=== PATIENT | male | born 1960 | race Caucasian/White ===

== ENCOUNTER 2021-01-29 10:43 | Inpatient (IN) ==
--- NOTE | 2021-01-29 11:31 | Emergency Department Note ---
HPI General Chief complaint: Alcohol Stated complaint: alcohol withdrawal, treatment options Time Seen by Provider: 01/29/21 11:19 Source: patient Mode of arrival: ambulatory Limitations: no limitations History of Present Illness HPI Narrative: Narrative: 60 yo M w/ h/o chronic alcoholism, drinking about 1.5L vodka per day, having not been sober for more than one day in the past few decades presents for alcohol Tx options. He arrived to a sober facility this AM looking for help to quit drinking, and his last drink was about one hour ago. Per the sober living staff, he has tried quitting a few times in the past but does not make it more than a day or so due to DTs. He has not had withdrawal seizures in the past. He currently states that he is here "so I don't " and has no other complaints. Related Data Home Medications Medication Instructions Recorded Confirmed No Known Home Meds 01/29/21 01/29/21 Allergies Allergy/AdvReac Type Severity Reaction Status Date / Time No Known Drug Allergies Allergy Verified 01/29/21 10:46 Review of Systems ROS ROS Narrative: Narrative: PFSH Narrative Patient History Narrative: Narrative: Medical/Surgical/Family History All Active Problems (Updated 01/29/21 @ 13:52 by Ismael Ray MD) Alcohol withdrawal delirium (Acute) Leukocytosis (Acute) Alcoholic hepatitis (Acute) Atrial fibrillation with RVR (Acute) Social History Smoking Status: Current every day smoker Exam Narrative Narrative: Narrative: General Limitations: no limitations General appearance: Present alert, appears intoxicated, in no apparent distress and other Head Head: Present atraumatic and normocephalic ENT ENT: Present normal oropharynx and mucous membranes moist Chest Chest: Present normal inspection and symmetric chest wall rise Respiratory Respiratory: Present normal lung sounds bilaterally; Absent respiratory distress, rales/crackles and wheezes Cardiovascular Cardiovascular: Present regular rate, normal rhythm, +S1, +S2 and other (2+ B/L radial pulses); Absent systolic murmur and diastolic murmur Adbominal Abdominal: Present soft and normal bowel sounds; Absent distention and tenderness Extremities Extremities: Absent pedal edema Neurological Neurological: Present alert and oriented X3 Psychiatric Psychiatric: Present normal affect Skin Skin: Present warm (WNL) and dry Course Vital Signs Vital signs: Vital Signs Temperature 97.3 F 01/29/21 10:44 Pulse Rate 150 H 01/29/21 10:44 Respiratory Rate 20 01/29/21 10:44 Blood Pressure 138/113 01/29/21 10:44 Pulse Oximetry (%) 99 01/29/21 10:44 Temperature 97.3 F 01/29/21 10:44 Pulse Rate 124 H 01/29/21 16:05 Respiratory Rate 28 H 01/29/21 16:05 Blood Pressure 110/86 01/29/21 16:05 Pulse Oximetry (%) 96 01/29/21 16:05 MDM MDM Narrative Medical decision making narrative: Narrative: 60 yo M w/ h/o chronic alcoholism presents for assistance w/ coming off of ETOH. DDx - Alcohol withdrawals, alcoholic hepatitis, arrhythmia, polysubstance abuse Pt presented w/ tachycardia to the 140s. His exam was o/w remarkable for obvious intoxication. I felt that he was at high risk for alcohol withdrawal seizures d/t his extensive drinking Hx. I was also concerned for holiday heart given his tachycardia and ETOH Hx. I checked an EKG which did show a fib, although there was no previous available for comparison. Within a few hours of arrival, pt began to develop agitation and olfactory hallucinations, which we Tx'd w/ 2mg IV ativan. Pts labs returned, showing a markedly elevated WBC of 47.1. There was no previous for comparison. His ETOH was also notable at 0.433. LFTs showed the expected elevation in AST and ALT, w/ AST much more elevated. Clinically I felt that his leukocytosis was not likely 2/2 an infectious process and did not start abx. I did start IVF out of concern for sludging effect from the leukocytosis. I d/w Dr Concepcion who graciously accepted the pt for admission, and he requested a CXR, procalcitonin, lactate and blood cultures. I have ordered these and he will follow and work on admission. EKG: A fib w/ rate of 140, no VA interval, normals QRS and QT interval, QTc 562. No STEMI, no significant TWI or ST depression, no previous for comparison. This EKG was ordered and interpreted by me. Lab Data Lab results reviewed: Yes I reviewed the patient's lab results. Result diagrams: 01/29/21 11:27 01/29/21 11:27 Labs: Lab Results 1101/29/21 01/29/21 Range/Units 11:09 11:27 11:27 WBC 47.1 H* (4.5-11.0) K/mcL RBC 4.50 L (4.63-6.08) M/mcL Hgb 15.1 (13.7-17.5) g/dL Hct 45.6 (40.1-51.0) % MCV 101.3 H (80.0-100.0) fL MCH 33.6 (26.0-34.0) pg MCHC 33.1 (31.0-36.0) g/dL RDW 13.4 (11.5-14.5) % Plt Count 97 L (140-440) K/mcL MPV 11.0 H (7.4-10.4) fL Neut % (Auto) 9.3 L (38.0-78.0) % Lymph % (Auto) 87.8 H (15.5-49.0) % Ada % (Auto) 2.5 (1.0-12.0) % Eos % (Auto) 0.3 (0.0-7.0) % Baso % (Auto) 0.1 (0.0-2.0) % Lymph # (Auto) 41.33 H (1.50-4.80) K/mcL Ada # (Auto) 1.19 H (0.10-0.90) K/mcL Eos # (Auto) 0.12 (0.00-0.70) K/mcL Baso # (Auto) 0.07 (0.00-0.30) K/mcL Absolute Neutrophils 4.37 (1.80-8.00) K/mcL VBG Lactic Acid (0.5-2.0) mmol/L Sodium 137 (133-145) mmol/L Potassium 3.7 (3.3-5.1) mmol/L Chloride 98 (96-108) mmol/L Carbon Dioxide 19 L (22-30) mmol/L Anion Gap 20.0 H (8.0-16.0) BUN 6 (6-20) mg/dL Creatinine 1.0 (0.7-1.2) mg/dL GFR Calculation 82 Glucose 132 H (70-105) mg/dL Calcium 8.4 L (8.6-10.4) mg/dL Total Bilirubin 1.0 (0.1-1.0) mg/dL AST 238 H (<40) U/L ALT 104 H (<40) U/L Alkaline Phosphatase 99 (39-117) U/L Total Creatine Kinase 82 (24-195) U/L CK-MB (CK-2) 3.0 (<6.7) ng/mL Troponin T (<0.03) ng/mL Total Protein 6.5 (5.9-8.4) gm/dL Albumin 4.2 (3.2-5.2) gm/dL Globulin 2.3 (2.2-3.7) gm/dL Albumin/Globulin Ratio 1.8 (1.0-2.3) Procalcitonin (<0.10) ng/mL Salicylates mg/dL Acetaminophen ug/mL Ethyl Alcohol 0.433 H (<0.010) gm/dL 01/29/21 01/29/21 01/29/21 Range/Units 11:27 11:27 14:14 WBC (4.5-11.0) K/mcL RBC (4.63-6.08) M/mcL Hgb (13.7-17.5) g/dL Hct (40.1-51.0) % MCV (80.0-100.0) fL MCH (26.0-34.0) pg MCHC (31.0-36.0) g/dL RDW (11.5-14.5) % Plt Count (140-440) K/mcL MPV (7.4-10.4) fL Neut % (Auto) (38.0-78.0) % Lymph % (Auto) (15.5-49.0) % Ada % (Auto) (1.0-12.0) % Eos % (Auto) (0.0-7.0) % Baso % (Auto) (0.0-2.0) % Lymph # (Auto) (1.50-4.80) K/mcL Ada # (Auto) (0.10-0.90) K/mcL Eos # (Auto) (0.00-0.70) K/mcL Baso # (Auto) (0.00-0.30) K/mcL Absolute Neutrophils (1.80-8.00) K/mcL VBG Lactic Acid 1.9 (0.5-2.0) mmol/L Sodium (133-145) mmol/L Potassium (3.3-5.1) mmol/L Chloride (96-108) mmol/L Carbon Dioxide (22-30) mmol/L Anion Gap (8.0-16.0) BUN (6-20) mg/dL Creatinine (0.7-1.2) mg/dL GFR Calculation Glucose (70-105) mg/dL Calcium (8.6-10.4) mg/dL Total Bilirubin (0.1-1.0) mg/dL AST (<40) U/L ALT (<40) U/L Alkaline Phosphatase (39-117) U/L Total Creatine Kinase (24-195) U/L CK-MB (CK-2) (<6.7) ng/mL Troponin T < 0.01 (<0.03) ng/mL Total Protein (5.9-8.4) gm/dL Albumin (3.2-5.2) gm/dL Globulin (2.2-3.7) gm/dL Albumin/Globulin Ratio (1.0-2.3) Procalcitonin (<0.10) ng/mL Salicylates < 0.3 mg/dL Acetaminophen < 5.0 ug/mL Ethyl Alcohol (<0.010) gm/dL 01/29/21 Range/Units 14:14 WBC (4.5-11.0) K/mcL RBC (4.63-6.08) M/mcL Hgb (13.7-17.5) g/dL Hct (40.1-51.0) % MCV (80.0-100.0) fL MCH (26.0-34.0) pg MCHC (31.0-36.0) g/dL RDW (11.5-14.5) % Plt Count (140-440) K/mcL MPV (7.4-10.4) fL Neut % (Auto) (38.0-78.0) % Lymph % (Auto) (15.5-49.0) % Ada % (Auto) (1.0-12.0) % Eos % (Auto) (0.0-7.0) % Baso % (Auto) (0.0-2.0) % Lymph # (Auto) (1.50-4.80) K/mcL Ada # (Auto) (0.10-0.90) K/mcL Eos # (Auto) (0.00-0.70) K/mcL Baso # (Auto) (0.00-0.30) K/mcL Absolute Neutrophils (1.80-8.00) K/mcL VBG Lactic Acid (0.5-2.0) mmol/L Sodium (133-145) mmol/L Potassium (3.3-5.1) mmol/L Chloride (96-108) mmol/L Carbon Dioxide (22-30) mmol/L Anion Gap (8.0-16.0) BUN (6-20) mg/dL Creatinine (0.7-1.2) mg/dL GFR Calculation Glucose (70-105) mg/dL Calcium (8.6-10.4) mg/dL Total Bilirubin (0.1-1.0) mg/dL AST (<40) U/L ALT (<40) U/L Alkaline Phosphatase (39-117) U/L Total Creatine Kinase (24-195) U/L CK-MB (CK-2) (<6.7) ng/mL Troponin T (<0.03) ng/mL Total Protein (5.9-8.4) gm/dL Albumin (3.2-5.2) gm/dL Globulin (2.2-3.7) gm/dL Albumin/Globulin Ratio (1.0-2.3) Procalcitonin 0.06 (<0.10) ng/mL Salicylates mg/dL Acetaminophen ug/mL Ethyl Alcohol (<0.010) gm/dL CC TIME Critical Care Time Total Critical Care Time: 35 Attestation: The very real possibility of disability or existed without emergent intervention. Organ systems at risk included ORDER BOOKER, CVS, hematologic. Interventions included ativan, IVF. No procedures were required. Discharge Plan Patient/Caregiver Discharge Instructions Pt seen by CORPORATE DRIVER/PA only: No Clinical Impression: Alcohol withdrawal delirium, Leukocytosis, Alcoholic hepatitis, Atrial fibrillation with RVR Patient Disposition: Xfer As Inpt ([facility]) Condition: Serious Discharge Date/Time: 01/29/21 15:02
[2021-01-29] MEDS ORDERED: LORazepam 2 MG/ML VIAL IV ONE (12:42)
[2021-01-29 12:53] LABS: Alcohol,Blood 0.433 gm/dL (<0.010)
[2021-01-29 13:00] LABS: Basophils # (Auto) 0.07 K/mcL (0.00-0.30); Basophils % (Auto) 0.1 % (0.0-2.0); Eosinophils # (Auto) 0.12 K/mcL (0.00-0.70); Eosinophils % (Auto) 0.3 % (0.0-7.0); Hematocrit 45.6 % (40.1-51.0); Hemoglobin 15.1 g/dL (13.7-17.5); Lymphocytes # (Auto) 41.33 K/mcL (1.50-4.80); Lymphocytes % (Auto) 87.8 % (15.5-49.0); Mean Cell Volume 101.3 fL (80.0-100.0); Mean Corpuscular HGB Conc 33.1 g/dL (31.0-36.0); Monocytes # (Auto) 1.19 K/mcL (0.10-0.90); Monocytes % (Auto) 2.5 % (1.0-12.0); Neutrophils % (Auto) 9.3 % (38.0-78.0); Platelet Count 97 K/mcL (140-440); Red Cell Distribution Width 13.4 % (11.5-14.5)
[2021-01-29 13:01] LABS: ALT/SGPT 104 U/L (<40); AST/SGOT 238 U/L (<40); Albumin 4.2 gm/dL (3.2-5.2); Albumin/Globulin Ratio 1.8 (1.0-2.3); Alkaline Phosphatase 99 U/L (39-117); Blood Urea Nitrogen 6 mg/dL (6-20); Calcium 8.4 mg/dL (8.6-10.4); Carbon Dioxide 19 mmol/L (22-30); Chloride 98 mmol/L (96-108); Creatine Kinase 82 U/L (24-195); Globulin 2.3 gm/dL (2.2-3.7); Glomerular Filtration Rate 82; Glucose 132 mg/dL (70-105)
[2021-01-29 13:04] LABS: WBC 47.1 K/mcL (4.5-11.0)
[2021-01-29 13:09] LABS: Acetaminophen < 5.0 ug/mL; Salicylate < 0.3 mg/dL
[2021-01-29] MEDS ORDERED: 0.9 % SODIUM CHLORIDE 1,000 ML IV ONE (13:12)
--- NOTE | 2021-01-29 14:11 | XRay Report ---
INDICATION: tachycardia TECHNIQUE: AP portable upright chest x-ray COMPARISON: None FINDINGS: Lungs:Lungs are negative. No focal pulmonary parenchymal infiltrate or mass Heart, vascular:No significant cardiomegaly. Pulmonary vascularity is normal. No pulmonary edema or pulmonary congestion Mediastinum, yoly:No mediastinal widening. No hilar mass Pleura:No pleural fluid. No pleural-based mass or calcification Skeletal:Negative. IMPRESSION: Negative AP chest x-ray Interpreted and Authenticated by: Manuel Ortiz 01/29/21
--- NOTE | 2021-01-29 14:13 | Internal Med History&Physical ---
HPI History of Present Illness Patient information: Note initiated : 01/29/21 at 2:08 pm Service Date, if different from initiated Date: [] Patient: Abram Chinchilla a 60 y/o M admitted on for alcohol withdrawal, treatment options. Chief Complaint: [Delirium tremens] History of present illness: Mr. Chinchilla is a 60 year old M chronic alcoholism for decades, referred by outside clinic for alcohol withdrawal assistance. Patient has been drinking 1 to 1.5 L of vodka per per day with last drink 1 hour prior to arriving our ED. Not much medical history could otherwise be obtained due to clinical circumstances. Labs significant for leukocytosis with WBC 47.1, with lymphocyte predominance. Serum alcohol level 0.433. Urine drug screen pending. Review of Systems ROS unobtainable: due to mental status PFSH PFSH All Active Problems (Updated 01/29/21 @ 13:52 by Ismael Ray MD) Alcohol withdrawal delirium (Acute) Leukocytosis (Acute) Alcoholic hepatitis (Acute) Atrial fibrillation with RVR (Acute) MEDS/ALLERGIES Home Medications and Allergies Home Medications Medication Instructions Recorded Confirmed Type No Known Home Meds 01/29/21 01/29/21 History Allergies Allergy/AdvReac Type Severity Reaction Status Date / Time No Known Drug Allergies Allergy Verified 01/29/21 10:46 EXAM Constitutional Vitals: Temp Pulse Resp BP Pulse Ox 36.3 C 77 25 H 131/109 94 01/29/21 10:44 01/29/21 13:49 01/29/21 13:49 01/29/21 12:33 01/29/21 13:49 General appearance: no acute distress Exam: Lethargic Head Head exam: Present atraumatic and normocephalic Eye Eye exam: Present EOMI and PERRL ENT ENT exam: Present mucous membranes moist, normal exam and normal external ear exam Neck Neck exam: Present normal inspection; Absent lymphadenopathy, tenderness and thyromegaly Respiratory Respiratory exam: Absent accessory muscle use, respiratory distress and wheezes Cardiovascular Cardiovascular exam: Present irregular rhythm and tachycardia; Absent JVD GI/Abdominal GI/Abdominal exam: Present normal bowel sounds and soft; Absent organomegaly and tenderness Rectal Rectal exam: Present deferred Extremities Exam Extremities exam: Present full ROM, normal capillary refill and normal inspection; Absent tenderness Neurological Exam Neurological exam: Present alert, CN II-XII intact and oriented X3; Absent motor sensory deficit Psychiatric Psychiatric exam: Present normal affect and normal mood; Absent anxious and depr essed Skin Skin exam: Present dry and intact DATA Data Completed and Pending Labs: Labs from last 24 hours 01/29/21 01/29/21 01/29/21 11:27 11:27 11:27 WBC RBC Hgb Hct MCV MCH MCHC RDW Plt Count MPV Neut % (Auto) Lymph % (Auto) Rooks % (Auto) Eos % (Auto) Baso % (Auto) Lymph # (Auto) Rooks # (Auto) Eos # (Auto) Baso # (Auto) Absolute Neutrophils Sodium Potassium Chloride Carbon Dioxide Anion Gap BUN Creatinine GFR Calculation Glucose Calcium Total Bilirubin AST ALT Alkaline Phosphatase Total Creatine Kinase CK-MB (CK-2) Troponin T < 0.01 Total Protein Albumin Globulin Albumin/Globulin Ratio Salicylates < 0.3 Urine Opiates Screen Pending Ur Opiates Confirm Pending Ur Oxycodone Screen Pending Urine Methadone Screen Pending Ur Methadone Confirm Pending Acetaminophen < 5.0 Ur Barbiturates Screen Pending Ur Barbiturate Confirm Pending Ur Phencyclidine Scrn Pending Urine PCP Confirm Pending Ur Amphetamines Screen Pending U Amphetamines Confirm Pending U Benzodiazepines Scrn Pending U Benzodiazepine Confm Pending Urine Cocaine Screen Pending Urine Cocaine Confirm Pending U Cannabinoids Confirm Pending U Marijuana (THC) Screen Pending Ethyl Alcohol 01/29/21 01/29/21 01/29/21 11:27 11:27 11:09 WBC 47.1 H* RBC 4.50 L Hgb 15.1 Hct 45.6 MCV 101.3 H MCH 33.6 MCHC 33.1 RDW 13.4 Plt Count 97 L MPV 11.0 H Neut % (Auto) 9.3 L Lymph % (Auto) 87.8 H Rooks % (Auto) 2.5 Eos % (Auto) 0.3 Baso % (Auto) 0.1 Lymph # (Auto) 41.33 H Rooks # (Auto) 1.19 H Eos # (Auto) 0.12 Baso # (Auto) 0.07 Absolute Neutrophils 4.37 Sodium 137 Potassium 3.7 Chloride 98 Carbon Dioxide 19 L Anion Gap 20.0 H BUN 6 Creatinine 1.0 GFR Calculation 82 Glucose 132 H Calcium 8.4 L Total Bilirubin 1.0 AST 238 H ALT 104 H Alkaline Phosphatase 99 Total Creatine Kinase 82 CK-MB (CK-2) 3.0 Troponin T Total Protein 6.5 Albumin 4.2 Globulin 2.3 Albumin/Globulin Ratio 1.8 Salicylates Urine Opiates Screen Ur Opiates Confirm Ur Oxycodone Screen Urine Methadone Screen Ur Methadone Confirm Acetaminophen Ur Barbiturates Screen Ur Barbiturate Confirm Ur Phencyclidine Scrn Urine PCP Confirm Ur Amphetamines Screen U Amphetamines Confirm U Benzodiazepines Scrn U Benzodiazepine Confm Urine Cocaine Screen Urine Cocaine Confirm U Cannabinoids Confirm U Marijuana (THC) Screen Ethyl Alcohol 0.433 H A/P Assessment and plan (1) Alcohol withdrawal delirium: Status: Acute (2) Leukocytosis: Status: Acute (3) Alcoholic hepatitis: Status: Acute (4) Atrial fibrillation with RVR: Status: Acute Narrative A/P Narrative: Assessment and Plans: 1. Delirium Tremens: Admit to inpatient PCU with telemetry Seizure precautions Fall precautions Aspiration precautions Banana bag CIWA protocol with Ativan PO/IV PRN alcohol withdrawal symptoms field services manager for eventual placement pending Addiction Therapist patient on quitting alcohol 2. Atrial fibrillation: Unknown chronicity [id number] score of 0, no indication for anticoagulation therapy at this point Metoprolol tartrate 25mg PO BID Lopressor IV PRN HR>120 bpm 3. Alcoholic hepatitis: Daily CMP to trend LFTs Limited abdominal US to look for cirrhosis Addiction Therapist patient on quitting alcohol 4. Lymphocytosis: Peripheral smear cbc w/ auto diff in the morning to trend WBC and lymphocyte count GI ppx: Protonix DVT ppx: Lovenox Code status: Full Prognosis: guarded Disposition: inpatient PCU telemetry Time Spent With Patient Time: Total time spent is greater than 50% in coordination of care (as documented) at patient's floor/unit and/or counseling patient: Total time spent with greater than 50% in coordination of care (as documented) at patient's floor/unit and/or counseling patient:: Greater than 35 minutes
[2021-01-29] MEDS ORDERED: LORazepam 1 MG TABLET PO PRN (15:02)
[2021-01-29] MEDS ORDERED: ONDANSETRON 4 MG/2 ML VIAL IV PRN (15:02)
[2021-01-29] MEDS ORDERED: 0.9 % SODIUM CHLORIDE 10 ML SYRINGE IV SCH (15:02)
[2021-01-29] MEDS ORDERED: SENNOSIDES 1 TABLET PO PRN (15:02)
[2021-01-29] MEDS ORDERED: LACTULOSE 20 GM/30 ML ORAL.SOL PO PRN (15:02)
[2021-01-29] MEDS ORDERED: LORazepam 2 MG/ML VIAL IV PRN (15:02)
[2021-01-29] MEDS ORDERED: IPRATROPIUM/ALBUTEROL 3 ML AMPUL.NEB NEB PRN (15:02)
[2021-01-29] MEDS ORDERED: hydrOXYzine 25 MG TABLET PO PRN (15:02)
[2021-01-29] MEDS ORDERED: ACETAMINOPHEN 325 MG TABLET PO PRN (15:02)
[2021-01-29] MEDS: [UNRECOGNIZED DRUG - OTHER] IV SCH (15:34)
[2021-01-29] MEDS: MAGNESIUM SULFATE IV SCH (15:34)
[2021-01-29] MEDS: THIAMINE IV SCH (15:34)
[2021-01-29] MEDS: POTASSIUM CHLORIDE IV SCH (15:34)
[2021-01-29] MEDS: METOPROLOL TARTRATE 5 MG/5 ML VIAL IV PRN (17:00)
[2021-01-29] MEDS: MULTIVIT,THER IRON,CA,FA & MIN 1 TABLET PO SCH (20:18)
[2021-01-29] MEDS: LORazepam 2 MG/ML VIAL IV PRN (20:19)
[2021-01-29] MEDS: METOPROLOL TARTRATE 25 MG TABLET PO SCH (20:19)
[2021-01-29] MEDS: DOCUSATE SODIUM 100 MG CAPSULE PO SCH (20:34)
[2021-01-29] MEDS ORDERED: METOPROLOL TARTRATE 25 MG TABLET PO SCH (21:00)
[2021-01-30] MEDS: LORazepam 2 MG/ML VIAL IV PRN ×6 (00:02→19:13)
[2021-01-30] MEDS: 0.9 % SODIUM CHLORIDE 10 ML SYRINGE IV SCH ×4 (01:00→21:30)
[2021-01-30] MEDS: METOPROLOL TARTRATE 5 MG/5 ML VIAL IV PRN ×2 (01:19→05:54)
[2021-01-30] MEDS ORDERED: MAGNESIUM SULFATE 8.12 MEQ/2 ML VIAL ONE (01:29)
[2021-01-30] MEDS ORDERED: THIAMINE 100 MG/ML VIAL ONE (01:29)
[2021-01-30] MEDS ORDERED: POTASSIUM CHLORIDE 20 MEQ/10 ML VIAL IV ONE (01:29)
[2021-01-30 02:56] LABS: Appearance,Urine CLEAR (Clear); Bilirubin,Urine Negative (Negative); Color,Urine YELLOW; Culture Indicated,Urine No; Glucose,Urine (UA) Negative (Negative); Ketones,Urine Negative (Negative); Leukocyte Esterase,Urine Negative /uL (Negative); Nitrate,Urine Negative (Negative); Protein,Urine Negative (Negative); Specific Gravity,Urine 1.005 (1.000-1.035); Urine Blood Negative (Negative); Urobilinogen,Urine Negative
[2021-01-30 03:06] LABS: Amphetamine Screen,Urine None detected; Barbiturate Screen,Urine None detected; Benzodiazepines Screen,Urine None detected; Cannabinoid Screen,Urine None detected; Cocaine Screen,Urine None detected; Opiate Screen,Urine None detected; Oxycodone, Urine Screen None detected; Phencyclidine Screen,Urine None detected
--- NOTE | 2021-01-30 06:12 | Ultrasound Report ---
INDICATION: look for cirrhosis TECHNIQUE: Grayscale and color flow Doppler spectral imaging COMPARISON: None. FINDINGS: Gallbladder:Negative. No cholelithiasis. No gallbladder wall thickening or pericholecystic fluid Common bile duct:No intra or extrahepatic bile duct dilatation.. Common bile duct measures4 mm Liver:Heterogeneous parenchyma. Liver is echogenic and attenuates sound relative to the right kidney. Liver contour is smooth. There is no discrete mass. No evidence for hepatocellular carcinoma. There is no ascites. Liver [id number] cm Portal vein:Normal hepatopedal portal venous flow Pancreas:Mildly echogenic. No detectable mass IMPRESSION: 1. Negative gallbladder 2. Somewhat echogenic and heterogeneous liver. No discrete mass. Liver contour is smooth Interpreted and Authenticated by: Manuel Ortiz 01/30/21
[2021-01-30 07:10] LABS: INR 1.1 (0.9-1.1); Prothrombin Time 14.7 sec (11.9-14.5)
[2021-01-30 07:15] LABS: Phosphorous 3.7 mg/dL (2.5-4.5)
[2021-01-30 07:18] LABS: ALT/SGPT 118 U/L (<40); AST/SGOT 268 U/L (<40); Albumin 3.8 gm/dL (3.2-5.2); Albumin/Globulin Ratio 1.8 (1.0-2.3); Alkaline Phosphatase 95 U/L (39-117); Bilirubin,Total 1.4 mg/dL (0.1-1.0); Blood Urea Nitrogen 6 mg/dL (6-20); Calcium 8.3 mg/dL (8.6-10.4); Carbon Dioxide 22 mmol/L (22-30); Chloride 106 mmol/L (96-108); Globulin 2.1 gm/dL (2.2-3.7); Glomerular Filtration Rate 98; Glucose 101 mg/dL (70-105)
[2021-01-30] MEDS: METOPROLOL TARTRATE 25 MG TABLET PO SCH (08:05)
[2021-01-30] MEDS: MULTIVIT,THER IRON,CA,FA & MIN 1 TABLET PO SCH (08:05)
[2021-01-30] MEDS: PANTOPRAZOLE 40 MG TABLET PO SCH (08:05)
[2021-01-30] MEDS: DOCUSATE SODIUM 100 MG CAPSULE PO SCH ×2 (08:05→21:30)
[2021-01-30 08:07] LABS: Basophils # (Auto) 0.14 K/mcL (0.00-0.30); Basophils % (Auto) 0.4 % (0.0-2.0); Eosinophils # (Auto) 0.17 K/mcL (0.00-0.70); Eosinophils % (Auto) 0.5 % (0.0-7.0); Hematocrit 44.6 % (40.1-51.0); Hemoglobin 15.1 g/dL (13.7-17.5); Lymphocytes # (Auto) 25.81 K/mcL (1.50-4.80); Mean Cell Volume 103.2 fL (80.0-100.0); Mean Corpuscular HGB Conc 33.9 g/dL (31.0-36.0); Mean Platelet Volume 11.4 fL (7.4-10.4); Monocytes # (Auto) 0.64 K/mcL (0.10-0.90); Monocytes % (Auto) 2.1 % (1.0-12.0); Neutrophils % (Auto) 14.2 % (38.0-78.0); Platelet Count 80 K/mcL (140-440); RBC 4.32 M/mcL (4.63-6.08); Red Cell Distribution Width 13.2 % (11.5-14.5); WBC 31.2 K/mcL (4.5-11.0)
[2021-01-30] MEDS ORDERED: ENOXAPARIN 40 MG/0.4 ML SYRINGE SQ SCH (09:00)
[2021-01-30 09:03] LABS: Lymphocytes % (Auto) 82.8 % (15.5-49.0)
[2021-01-30] MEDS ORDERED: METOPROLOL TARTRATE 25 MG TABLET PO ONE (09:12)
--- NOTE | 2021-01-30 09:21 | Internal Med Progress Note ---
SUBJECTIVE Subjective Patient information: Note initiated : 01/30/21 at 9:14 am Service Date, if different from initiated Date: [] Patient: Abram Chinchilla a 60 y/o M admitted on 01/29/21 for alcohol withdrawal, treatment options. Chief Complaint: [delirium tremens] Interval history: History of present illness: Mr. Chinchilla is a 60 year old M chronic alcoholism for decades, referred by outside clinic for alcohol withdrawal assistance. Patient has been drinking 1 to 1.5 L of vodka per per day with last drink 1 hour prior to arriving our ED. Not much medical history could otherwise be obtained due to clinical circumstances. Labs significant for leukocytosis with WBC 47.1, with lymphocyte predominance. Serum alcohol level 0.433. Urine drug screen pending. 01/30: CIWA score 10-12 overnight, 10 this morning. Constitutional Vitals: Vital Signs Temp Pulse Resp BP Pulse Ox 37.1 C 120 H 22 157/117 96 01/30/21 04:01 01/30/21 07:02 01/30/21 07:02 01/30/21 07:02 01/30/21 07:02 Period Temp Pulse Resp BP Sys/Johnson Pulse Ox Last 24 Hr 35.9 C-37.1 C 28-150 14-29 100-157/74-128 88-99 Intake and Output 01/29/21 01/30/21 01/30/21 21:59 05:59 13:59 Intake Total 1000 1375 Output Total 1 600 Balance 999 -600 1375 Weight 96.785 kg Intake & Output: Intake & Output 01/29/21 01/30/21 01/30/21 21:59 05:59 13:59 Intake Total 1000 1375 Output Total 1 600 Balance 999 -600 1375 Weight 96.785 kg Intake: IV 1000 1015 Sodium Chloride 0.9% 1,000 ml @ 1000 Wide Open IV BOLUS ONE Rx#: [id number] Potassium Chloride 20 Meq 1015 Magnesium Sulfate 16.24 Meq Vitamin B1 100 mg In Sodium Chloride 0.9% 1,000 ml @ 100 mls/hr IV Q24H ERIKA Rx#: [id number] Oral 360 Output: Void Amount 600 # of times incontinent of urine 1 Other: Urine Appearance Clear Urine Color Dark Yellow Urine Odor Normal General appearance: cooperative, disheveled and no acute distress Head Head exam: Present atraumatic and normocephalic Eye Eye exam: Present EOMI and PERRL ENT ENT exam: Present mucous membranes moist, normal exam and normal external ear exam Neck Neck exam: Present normal inspection; Absent lymphadenopathy, tenderness and thyromegaly Respiratory Respiratory exam: Absent accessory muscle use, respiratory distress and wheezes Cardiovascular Cardiovascular exam: Present irregular rhythm and tachycardia; Absent JVD GI/Abdominal GI/Abdominal exam: Present normal bowel sounds and soft; Absent organomegaly and tenderness Rectal Rectal exam: Present deferred Extremities Exam Extremities exam: Present full ROM, normal capillary refill and normal inspection; Absent tenderness Neurological Exam Neurological exam: Present alert and CN II-XII intact; Absent motor sensory deficit and oriented X3 Additional comments: oriented X2 to person and place only Psychiatric Psychiatric exam: Present normal affect and normal mood; Absent anxious and depressed Skin Skin exam: Present dry and intact OBJ DATA Labs CBC & Chem 7: 01/30/21 05:12 01/30/21 05:12 Labs: Abnormal Lab Results 01/30/21 01/30/21 01/30/21 05:12 05:12 05:00 WBC 31.2 H* RBC 4.32 L MCV 103.2 H MCH 35.0 H Plt Count 80 L MPV 11.4 H Neut % (Auto) 14.2 L Lymph % (Auto) 82.8 H Lymph # (Auto) 25.81 H Cedar # (Auto) PT 14.7 H Carbon Dioxide Anion Gap Glucose Calcium 8.3 L Total Bilirubin 1.4 H AST 268 H ALT 118 H Globulin 2.1 L Ethyl Alcohol 01/29/21 01/29/21 01/29/21 11:27 11:27 11:09 WBC 47.1 H* RBC 4.50 L MCV 101.3 H MCH Plt Count 97 L MPV 11.0 H Neut % (Auto) 9.3 L Lymph % (Auto) 87.8 H Lymph # (Auto) 41.33 H Cedar # (Auto) 1.19 H PT Carbon Dioxide 19 L Anion Gap 20.0 H Glucose 132 H Calcium 8.4 L Total Bilirubin AST 238 H ALT 104 H Globulin Ethyl Alcohol 0.433 H Meds: Medications Acetaminophen (Acetaminophen 325 Mg Tablet) 650 mg PO Q6HP PRN; Protocol PRN Reason: Per Pain Protocol/Fever > 101 Albuterol/Ipratropium (Ipratropium/Albuterol 3 Ml Ampul.Neb) 3 ml NEB Q4HRT PRN PRN Reason: Wheezing Docusate Sodium (Docusate Sodium 100 Mg Capsule) 100 mg PO BID [facility] Last Admin: 01/30/21 08:05 Dose: Not Given Documented by: Enoxaparin Sodium (Enoxaparin 40 Mg/0.4 Ml Syringe) 40 mg SQ DAILY [facility] Last Admin: 01/30/21 08:05 Dose: 40 mg Documented by: Hydroxyzine HCl (Hydroxyzine 25 Mg Tablet) 0 mg PO Q4HP PRN PRN Reason: Anxiety/Agitation Potassium Chloride 20 meq/Magnesium Sulfate 16.24 meq/Thiamine HCl 100 mg/ Sodium Chloride 1,015 mls @ 100 mls/hr IV Q24H [facility] Stop: 02/01/21 02:08 Last Infusion: 01/30/21 07:49 Dose: Infused Documented by: Iron Carb/Multivit/Truck Farmer/Folic Acid (Multivit,Ther Iron,Ca,Fa & Min 1 Tablet) 1 tab PO DAILY [facility] Last Admin: 01/30/21 08:05 Dose: 1 tab Documented by: Lactulose (Lactulose 20 Gm/30 Ml Oral.Graciela) 10 gm PO DAILYP PRN PRN Reason: Constipation Lorazepam (Lorazepam 1 Mg Tablet) 2 mg PO Q2HP PRN PRN Reason: CIWA-A >6 or HR >100 Last Admin: 01/29/21 15:33 Dose: 2 mg Documented by: Lorazepam (Lorazepam 2 Mg/Ml Vial) 0 mg IV Q1HP PRN; Protocol PRN Reason: Alcohol Withdrawal Last Admin: 01/30/21 08:31 Dose: 1 mg Documented by: Metoprolol Tartrate (Metoprolol Tartrate 25 Mg Tablet) 50 mg PO BID [facility] Ondansetron HCl (Ondansetron 4 Mg/2 Ml Vial) 4 mg IV Q4HP PRN; Protocol PRN Reason: Nausea And Vomiting Last Admin: 01/30/21 00:01 Dose: 4 mg Documented by: Pantoprazole Sodium (Pantoprazole 40 Mg Tablet) 40 mg PO QAMAC [facility] Last Admin: 01/30/21 08:05 Dose: 40 mg Documented by: Senna (Sennosides 1 Tablet) 2 tab PO HSP PRN PRN Reason: Constipation Sodium Chloride (0.9 % Sodium Chloride 10 Ml Syringe) 10 ml IV Q8 [facility] Last Admin: 01/30/21 05:54 Dose: 10 ml Documented by: A/P Assessment and plan (1) Alcohol withdrawal delirium: Status: Acute (2) Leukocytosis: Status: Acute (3) Alcoholic hepatitis: Status: Acute (4) Atrial fibrillation with RVR: Status: Acute Narrative A/P Narrative: Assessment and Plans: 1. Delirium Tremens: Stays in inpatient PCU with telemetry Seizure precautions Fall precautions Aspiration precautions Banana bag CIWA protocol with Ativan PO/IV PRN alcohol withdrawal symptoms administrative services director for eventual placement pending Licensed Nurse Practitioner patient on quitting alcohol 2. Atrial fibrillation: Unknown chronicity [id number] score of 0, no indication for anticoagulation therapy at this point Metoprolol tartrate 25mg-->50mg PO BID for better rate control Lopressor IV PRN HR>120 bpm 2D echocardiogram, results pending 3. Alcoholic hepatitis: Daily CMP to trend LFTs Limited abdominal US to look for cirrhosis--> no signs of cirrhosis or liver lesion Licensed Nurse Practitioner patient on quitting alcohol 4. Lymphocytosis: Peripheral smear-->marked lymphocytosis, mature and small. Worrisome for CLL/SLL. Will consider hematology referral cbc w/ auto diff in the morning to trend WBC and lymphocyte count-->WBC count and lymphocyte % falling GI ppx: Protonix DVT ppx: Lovenox Code status: Full Prognosis: guarded Disposition: inpatient PCU telemetry Time Spent With Patient Time: Total time spent is greater than 50% in coordination of care (as documented) at patient's floor/unit and/or counseling patient:
[2021-01-30] MEDS: POTASSIUM CHLORIDE IV SCH (16:19)
[2021-01-30] MEDS: MAGNESIUM SULFATE IV SCH (16:19)
[2021-01-30] MEDS: [UNRECOGNIZED DRUG - OTHER] IV SCH (16:19)
[2021-01-30] MEDS: THIAMINE IV SCH (16:19)
[2021-01-30] MEDS ORDERED: METOPROLOL TARTRATE 25 MG TABLET PO SCH (21:00)
[2021-01-30] MEDS: METOPROLOL TARTRATE 50 MG TABLET PO SCH (21:30)
[2021-01-31] MEDS: LORazepam 2 MG/ML VIAL IV PRN ×5 (03:10→13:48)
[2021-01-31] MEDS: 0.9 % SODIUM CHLORIDE 10 ML SYRINGE IV SCH ×3 (06:10→22:00)
[2021-01-31] MEDS: PANTOPRAZOLE 40 MG TABLET PO SCH (07:06)
[2021-01-31 07:23] LABS: Prothrombin Time 13.8 sec (11.9-14.5)
[2021-01-31 07:30] LABS: Basophils # (Auto) 0.08 K/mcL (0.00-0.30); Basophils % (Auto) 0.3 % (0.0-2.0); Eosinophils # (Auto) 0.15 K/mcL (0.00-0.70); Eosinophils % (Auto) 0.6 % (0.0-7.0); Lymphocytes # (Auto) 20.34 K/mcL (1.50-4.80); Mean Cell Volume 104.2 fL (80.0-100.0); Mean Corpuscular HGB Conc 33.3 g/dL (31.0-36.0); Mean Platelet Volume 11.9 fL (7.4-10.4); Monocytes # (Auto) 0.72 K/mcL (0.10-0.90); Monocytes % (Auto) 2.8 % (1.0-12.0); Neutrophils % (Auto) 17.3 % (38.0-78.0); Platelet Count 62 K/mcL (140-440); RBC 4.03 M/mcL (4.63-6.08); Red Cell Distribution Width 13.1 % (11.5-14.5); WBC 25.7 K/mcL (4.5-11.0)
[2021-01-31 07:35] LABS: ALT/SGPT 19 U/L (<40); AST/SGOT 22 U/L (<40); Albumin 3.7 gm/dL (3.2-5.2); Alkaline Phosphatase 70 U/L (39-117); Bilirubin,Total 0.4 mg/dL (0.1-1.0); Blood Urea Nitrogen 11 mg/dL (6-20); Calcium 9.4 mg/dL (8.6-10.4); Carbon Dioxide 23 mmol/L (22-30); Chloride 105 mmol/L (96-108); Globulin 3.6 gm/dL (2.2-3.7); Glomerular Filtration Rate 104; Glucose 180 mg/dL (70-105)
[2021-01-31 07:53] LABS: Phosphorous 3.2 mg/dL (2.5-4.5)
[2021-01-31] MEDS: MULTIVIT,THER IRON,CA,FA & MIN 1 TABLET PO SCH (08:33)
[2021-01-31] MEDS: DOCUSATE SODIUM 100 MG CAPSULE PO SCH ×2 (08:33→21:13)
[2021-01-31] MEDS: METOPROLOL TARTRATE 50 MG TABLET PO SCH ×2 (08:33→20:43)
--- NOTE | 2021-01-31 08:55 | Internal Med Progress Note ---
SUBJECTIVE Subjective Patient information: Note initiated : 01/31/21 at 8:50 am Service Date, if different from initiated Date: [] Patient: Abram Chinchilla a 60 y/o M admitted on 01/29/21 for alcohol withdrawal, treatment options. Chief Complaint: [] Interval history: History of present illness: Mr. Chinchilla is a 60 year old M chronic alcoholism for decades, referred by outside clinic for alcohol withdrawal assistance. Patient has been drinking 1 to 1.5 L of vodka per per day with last drink 1 hour prior to arriving our ED. Not much medical history c ould otherwise be obtained due to clinical circumstances. Labs significant for leukocytosis with WBC 47.1, with lymphocyte predominance. Serum alcohol level 0.433. Urine drug screen pending. 01/30: CIWA score 10-12 overnight, 10 this morning. 01/31: CIWA score as high as 29 last evening, currently at 12. No seizures. c/o visual hallucinations. Denies auditory hallucination. Denies anxiety. Denies agitation. Denies insomnia. Denies nausea or vomiting. Denies muscle cramps. Constitutional Vitals: Vital Signs Temp Pulse Resp BP Pulse Ox 36.7 C 109 H 35 H 143/110 95 01/31/21 04:01 01/31/21 07:04 01/31/21 07:04 01/31/21 07:04 01/31/21 07:04 Period Temp Pulse Resp BP Sys/Johnson Pulse Ox Last 24 Hr 35.6 C-36.8 C 36-138 16-35 117-155/89-130 92-99 Intake and Output 01/30/21 01/31/21 01/31/21 21:59 05:59 13:59 Intake Total 1415 Output Total 153 1 Balance -153 1414 Weight 98.061 kg Intake & Output: Intake & Output 01/30/21 01/31/21 01/31/21 21:59 05:59 13:59 Intake Total 1415 Output Total 153 1 Balance -153 1414 Weight 98.061 kg Intake: IV 1015 Potassium Chloride 20 Meq 1015 Magnesium Sulfate 16.24 Meq Vitamin B1 100 mg In Sodium Chloride 0.9% 1,000 ml @ 100 mls/hr IV Q24H [facility] Rx#: [id number] Oral 400 Output: Void Amount 150 # of times incontinent of urine 3 1 General appearance: cooperative, disheveled and no acute distress Head Head exam: Present atraumatic and normocephalic Eye Eye exam: Present EOMI and PERRL ENT ENT exam: Present mucous membranes moist, normal exam and normal external ear exam Neck Neck exam: Present normal inspection; Absent lymphadenopathy, tenderness and thyromegaly Respiratory Respiratory exam: Absent accessory muscle use, respiratory distress and wheezes Cardiovascular Cardiovascular exam: Present tachycardia; Absent JVD GI/Abdominal GI/Abdominal exam: Present normal bowel sounds and soft; Absent organomegaly and tenderness Rectal Rectal exam: Present deferred Extremities Exam Extremities exam: Present full ROM, normal capillary refill and normal inspection; Absent tenderness Neurological Exam Neurological exam: Present alert, CN II-XII intact and oriented X3; Absent motor sensory deficit Psychiatric Psychiatric exam: Present normal affect and normal mood; Absent anxious and depressed Skin Skin exam: Present dry and intact OBJ DATA Labs CBC & Chem 7: 01/31/21 05:19 01/31/21 05:19 Labs: Abnormal Lab Results 01/31/21 01/31/21 01/30/21 05:19 05:19 05:12 WBC 25.7 H RBC 4.03 L MCV 104.2 H MCH 34.7 H Plt Count 62 L MPV 11.9 H Neut % (Auto) 17.3 L Lymph % (Auto) 79.0 H Lymph # (Auto) 20.34 H [place] # (Auto) PT Carbon Dioxide Anion Gap Glucose 180 H Calcium 8.3 L Total Bilirubin 1.4 H AST 268 H ALT 118 H Globulin 2.1 L Ethyl Alcohol 01/30/21 01/30/21 01/29/21 05:12 05:00 11:27 WBC 31.2 H* RBC 4.32 L MCV 103.2 H MCH 35.0 H Plt Count 80 L MPV 11.4 H Neut % (Auto) 14.2 L Lymph % (Auto) 82.8 H Lymph # (Auto) 25.81 H [place] # (Auto) PT 14.7 H Carbon Dioxide 19 L Anion Gap 20.0 H Glucose 132 H Calcium 8.4 L Total Bilirubin AST 238 H ALT 104 H Globulin Ethyl Alcohol 01/29/21 01/29/21 11:27 11:09 WBC 47.1 H* RBC 4.50 L MCV 101.3 H MCH Plt Count 97 L MPV 11.0 H Neut % (Auto) 9.3 L Lymph % (Auto) 87.8 H Lymph # (Auto) 41.33 H [place] # (Auto) 1.19 H PT Carbon Dioxide Anion Gap Glucose Calcium Total Bilirubin AST ALT Globulin Ethyl Alcohol 0.433 H Meds: Medications Acetaminophen (Acetaminophen 325 Mg Tablet) 650 mg PO Q6HP PRN; Protocol PRN Reason: Per Pain Protocol/Fever > 101 Albuterol/Ipratropium (Ipratropium/Albuterol 3 Ml Ampul.Neb) 3 ml NEB Q4HRT PRN PRN Reason: Wheezing Docusate Sodium (Docusate Sodium 100 Mg Capsule) [address] [facility] Last Admin: 01/31/21 08:33 Dose: Not Given Documented by: Hydroxyzine HCl (Hydroxyzine 25 Mg Tablet) 0 mg PO Q4HP PRN PRN Reason: Anxiety/Agitation Potassium Chloride 20 meq/Magnesium Sulfate 16.24 meq/Thiamine HCl 100 mg/ Sodium Chloride 1,015 mls @ 100 mls/hr IV Q24H [facility] Stop: 02/01/21 02:08 Last Infusion: 01/31/21 03:10 Dose: Infused Documented by: Iron Carb/Multivit/[place]/Folic Acid (Multivit,Ther Iron,Ca,Fa & Min 1 Tablet) [address] [facility] Last Admin: 01/31/21 08:33 Dose: 1 tab Documented by: Lactulose (Lactulose 20 Gm/30 Ml Oral.Graciela) 10 gm PO DAILYP PRN PRN Reason: Constipation Lorazepam (Lorazepam 1 Mg Tablet) 2 mg PO Q2HP PRN PRN Reason: CIWA-A >6 or HR >100 Last Admin: 01/29/21 15:33 Dose: 2 mg Documented by: Lorazepam (Lorazepam 2 Mg/Ml Vial) 0 mg IV Q1HP PRN; Protocol PRN Reason: Alcohol Withdrawal Last Admin: 01/31/21 07:22 Dose: 2 mg Documented by: Metoprolol Tartrate (Metoprolol Tartrate 50 Mg Tablet) [address] [facility] Last Admin: 01/31/21 08:33 Dose: 100 mg Documented by: Nicotine (Nicotine 21 Mg Patch) 21 mg TOPICAL DAILY@1000 ERIKA Ondansetron HCl (Ondansetron 4 Mg/2 Ml Vial) 4 mg IV Q4HP PRN; Protocol PRN Reason: Nausea And Vomiting Last Admin: 01/30/21 00:01 Dose: 4 mg Documented by: Pantoprazole Sodium (Pantoprazole 40 Mg Tablet) [address] [facility] Last Admin: 01/31/21 07:06 Dose: 40 mg Documented by: Senna (Sennosides 1 Tablet) 2 tab PO HSP PRN PRN Reason: Constipation Sodium Chloride (0.9 % Sodium Chloride 10 Ml Syringe) [address] [facility] Last Admin: 01/31/21 06:10 Dose: 10 ml Documented by: A/P Assessment and plan (1) Alcohol withdrawal delirium: Status: Acute (2) Leukocytosis: Status: Acute (3) Alcoholic hepatitis: Status: Acute (4) Atrial fibrillation with RVR: Status: Acute (5) Systolic CHF, chronic: Status: Acute Narrative A/P Narrative: Assessment and Plans: 1. 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 Atrial fibrillation: Unknown chronicity [id number] score of 0, no indication for anticoagulation therapy at this point Metoprolol tartrate 50mg-->100mg PO BID for better rate control Lopressor IV PRN HR>120 bpm 2D echocardiogram, atrial fibrillation with LVEF 48%. No endocardial vegetations. 3. 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 Lymphocytosis: Peripheral smear-->marked lymphocytosis, mature and small. Worrisome for CLL/SLL. Will consider hematology referral cbc w/ auto diff in the morning to trend WBC and lymphocyte count-->WBC count and lymphocyte % falling 5. Chronic systolic CHF: 2D echocardiogram, atrial fibrillation with LVEF 48%. No endocardial vegetations. Metoprolol tartrate 100mg PO BID Lisinopril 2.5mg PO daily GI ppx: Protonix DVT ppx: Lovenox Code status: Full Prognosis: guarded Disposition: inpatient PCU telemetry Time Spent With Patient Time: Total time spent is greater than 50% in coordination of care (as documented) at patient's floor/unit and/or counseling patient: Total time spent with greater than 50% in coordination of care (as documented) at patient's floor/unit and/or counseling patient:: Greater than 35 minutes
[2021-01-31] MEDS ORDERED: LISINOPRIL 2.5 MG TABLET PO SCH (09:00)
[2021-01-31] MEDS ORDERED: NICOTINE 21 MG PATCH TOPICAL SCH (10:00)
[2021-01-31] MEDS ORDERED: IPRATROPIUM/ALBUTEROL 3 ML AMPUL.NEB NEB PRN (15:02)
[2021-01-31] MEDS ORDERED: LORazepam 2 MG/ML VIAL IV PRN (15:02)
[2021-01-31] MEDS ORDERED: SENNOSIDES 1 TABLET PO PRN (15:02)
[2021-01-31] MEDS ORDERED: LORazepam 1 MG TABLET PO PRN (15:02)
[2021-01-31] MEDS ORDERED: LACTULOSE 20 GM/30 ML ORAL.SOL PO PRN (15:02)
[2021-01-31] MEDS: DEXMEDETOMIDINE 400 MCG in PREMIX 1 BAG IV SCH ×2 (15:13→19:50)
[2021-01-31] MEDS: 0.9 % SODIUM CHLORIDE 250 ML IV SCH (15:22)
[2021-01-31] MEDS ORDERED: MAGNESIUM SULFATE IV SCH (16:00)
[2021-01-31] MEDS ORDERED: THIAMINE IV SCH (16:00)
[2021-01-31] MEDS ORDERED: POTASSIUM CHLORIDE IV SCH (16:00)
[2021-01-31] MEDS ORDERED: [UNRECOGNIZED DRUG - OTHER] IV SCH (16:00)
--- NOTE | 2021-01-31 18:31 | EKG ---
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
[2021-01-31] MEDS ORDERED: 0.9 % SODIUM CHLORIDE 1,000 ML IV SCH (21:15)
[2021-02-01] MEDS: 0.9 % SODIUM CHLORIDE 250 ML IV SCH ×6 (01:23→23:04)
[2021-02-01] MEDS: 0.9 % SODIUM CHLORIDE 1,000 ML IV SCH ×3 (01:48→23:25)
[2021-02-01] MEDS: DEXMEDETOMIDINE 400 MCG in PREMIX 1 BAG IV SCH ×6 (02:52→21:13)
[2021-02-01] MEDS: ONDANSETRON 4 MG/2 ML VIAL IV PRN (03:25)
[2021-02-01] MEDS: 0.9 % SODIUM CHLORIDE 10 ML SYRINGE IV SCH ×3 (06:04→20:22)
[2021-02-01 07:06] LABS: INR 1.1 (0.9-1.1); Prothrombin Time 14.5 sec (11.9-14.5)
[2021-02-01 07:18] LABS: Phosphorous 2.6 mg/dL (2.5-4.5)
[2021-02-01] MEDS ORDERED: PANTOPRAZOLE 40 MG TABLET PO SCH (07:30)
[2021-02-01 08:42] LABS: Basophils # (Auto) 0.06 K/mcL (0.00-0.30); Basophils % (Auto) 0.2 % (0.0-2.0); Eosinophils # (Auto) 0.08 K/mcL (0.00-0.70); Eosinophils % (Auto) 0.3 % (0.0-7.0); Hemoglobin 15.3 g/dL (13.7-17.5); Lymphocytes # (Auto) 21.94 K/mcL (1.50-4.80); Lymphocytes % (Auto) 71.7 % (15.5-49.0); Mean Cell Volume 102.9 fL (80.0-100.0); Mean Corpuscular HGB Conc 33.3 g/dL (31.0-36.0); Mean Platelet Volume 12.9 fL (7.4-10.4); Monocytes % (Auto) 3.6 % (1.0-12.0); Neutrophils % (Auto) 24.2 % (38.0-78.0); Platelet Count 54 K/mcL (140-440); RBC 4.47 M/mcL (4.63-6.08); Red Cell Distribution Width 13.2 % (11.5-14.5); WBC 30.6 K/mcL (4.5-11.0)
--- NOTE | 2021-02-01 08:54 | Internal Med Progress Note ---
SUBJECTIVE Subjective Patient information: Note initiated : 02/01/21 at 8:52 am Service Date, if different from initiated Date: [] Patient: Abram Chinchilla a 60 y/o M admitted on 01/29/21 for alcohol withdrawal, treatment options. Chief Complaint: [] Interval history: History of present illness: Mr. Chinchilla is a 60 year old M chronic alcoholism for decades, referred by outside clinic for alcohol withdrawal assistance. Patient has been drinking 1 to 1.5 L of vodka per per day with last drink 1 hour prior to arriving our ED. Not much medical history could otherwise be obtained due to clinical circumstances. Labs significant for leukocytosis with WBC 47.1, with lymphocyte predominance. Serum alcohol level 0.433. Urine drug screen pending. 01/30: CIWA score 10-12 overnight, 10 this morning. 01/31: CIWA score as high as 29 last evening, currently at 12. No seizures. c/o visual hallucinations. Denies auditory hallucination. Denies anxiety. Denies agitation. Denies insomnia. Denies nausea or vomiting. Denies muscle cramps. 02/01: Still on Precedex drip. Anyi score of 4 this morning. No seizure. Patient not verbal. No subjective could be obtained. Constitutional Vitals: Vital Signs Temp Pulse Resp BP Pulse Ox 38.7 C H 101 H 40 H 153/119 97 02/01/21 08:01 02/01/21 08:01 02/01/21 08:01 02/01/21 08:01 02/01/21 08:01 Period Temp Pulse Resp BP Sys/Johnson Pulse Ox Last 24 Hr 37.3 C-38.7 C 32-130 16-42 109-153/93-130 93-100 Intake and Output 01/31/21 02/01/21 02/01/21 21:59 05:59 13:59 Intake Total 107 1290 46 Output Total 364 318 110 Balance -257 972 -64 Weight 99.7 kg Intake & Output: Intake & Output 01/31/21 02/01/21 02/01/21 21:59 05:59 13:59 Intake Total 107 1290 46 Output Total 364 318 110 Balance -257 972 -64 Weight 99.7 kg Intake: IV 107 1290 46 Sodium Chloride 0.9% 250 ml @ 200 20 mls/hr IV .[id number] [facility] Rx#: [id number] Precedex 400 Mcg/100 ml 107 75 46 Dextrose 400 Mcg In Premix 1 Bag @ 0.2 MCG/KG/HR 4.903 mls/ hr IV .[id number] [facility] Rx#: [id number] Potassium Chloride 20 Meq 1015 Magnesium Sulfate 16.24 Meq Vitamin B1 100 mg In Sodium Chloride 0.9% 1,000 ml @ 100 mls/hr IV Q24H [facility] Rx#: [id number] Output: Urine Catheter Amount 364 318 110 Other: Urine Appearance Clear Clear Clear Uretheral (Dial) Clear Clear Clear Urine Color Blood Tinged Blood Tinged Dark Yellow [place] Uretheral (Dial) Blood Tinged Blood Tinged Dark Yellow [place] Urine Odor Normal General appearance: disheveled and moderate distress; no cooperative Head Head exam: Present atraumatic and normal inspection Eye Eye exam: Present normal appearance ENT ENT exam: Present mucous membranes moist, normal exam and normal external ear exam Neck Neck exam: Present normal inspection Respiratory Respiratory exam: Present normal respiratory exam and rhonchi Cardiovascular Cardiovascular exam: Present irregular rhythm and tachycardia GI/Abdominal GI/Abdominal exam: Present normal bowel sounds Back Exam Back exam: Present normal inspection Neurological Exam Neurological exam: Present alert and altered; Absent oriented X3 Additional comments: orientation cannot be assessed due to clinical situations. Psychiatric Additional comments: No assessed due to clinical situations. Skin Skin exam: Present intact and warm OBJ DATA Labs CBC & Chem 7: 02/01/21 05:55 01/31/21 05:19 Labs: Abnormal Lab Results 02/01/21 01/31/21 01/31/21 05:55 05:19 05:19 WBC 30.6 H* 25.7 H RBC 4.47 L 4.03 L MCV 102.9 H 104.2 H MCH 34.2 H 34.7 H Plt Count 54 L 62 L MPV 12.9 H 11.9 H Neut % (Auto) 24.2 L 17.3 L Lymph % (Auto) 71.7 H 79.0 H Lymph # (Auto) 21.94 H 20.34 H [place] # (Auto) 1.10 H PT Carbon Dioxide Anion Gap Glucose 180 H Calcium Total Bilirubin AST ALT Globulin Ethyl Alcohol 01/30/21 01/30/21 01/30/21 05:12 05:12 05:00 WBC 31.2 H* RBC 4.32 L MCV 103.2 H MCH 35.0 H Plt Count 80 L MPV 11.4 H Neut % (Auto) 14.2 L Lymph % (Auto) 82.8 H Lymph # (Auto) 25.81 H [place] # (Auto) PT 14.7 H Carbon Dioxide Anion Gap Glucose Calcium 8.3 L Total Bilirubin 1.4 H AST 268 H ALT 118 H Globulin 2.1 L Ethyl Alcohol 01/29/21 01/29/21 01/29/21 11:27 11:27 11:09 WBC 47.1 H* RBC 4.50 L MCV 101.3 H MCH Plt Count 97 L MPV 11.0 H Neut % (Auto) 9.3 L Lymph % (Auto) 87.8 H Lymph # (Auto) 41.33 H [place] # (Auto) 1.19 H PT Carbon Dioxide 19 L Anion Gap 20.0 H Glucose 132 H Calcium 8.4 L Total Bilirubin AST 238 H ALT 104 H Globulin Ethyl Alcohol 0.433 H Meds: Medications Acetaminophen (Acetaminophen 325 Mg Tablet) 650 mg PO Q6HP PRN; Protocol PRN Reason: Per Pain Protocol/Fever > 101 Albuterol/Ipratropium (Ipratropium/Albuterol 3 Ml Ampul.Neb) 3 ml NEB Q4HRT PRN PRN Reason: Wheezing Clonidine HCl (Clonidine Tts 1 1 Patch Patch) 1 patch TD WEEKLY [facility] Docusate Sodium (Docusate Sodium 100 Mg Capsule) 100 mg PO BID [facility] Last Admin: 01/31/21 21:13 Dose: Not Given Documented by: Hydroxyzine HCl (Hydroxyzine 25 Mg Tablet) 0 mg PO Q4HP PRN PRN Reason: Anxiety/Agitation Dexmedetomidine HCl 400 mcg/ (Premix) 100 mls @ 4.903 mls/hr IV .[id number] ERIKA; Protocol Last Admin: 02/01/21 08:16 Dose: 0.8 mcg/kg/hr, 19.612 mls/hr Documented by: Sodium Chloride (Sodium Chloride 0.9%) 250 mls @ 20 mls/hr IV .[id number] [facility] Last Admin: 02/01/21 02:07 Dose: Not Given Documented by: Sodium Chloride (Sodium Chloride 0.9%) 1,000 mls @ 100 mls/hr IV .Q10H [facility] Last Admin: 02/01/21 01:48 Dose: 100 mls/hr Documented by: Acetaminophen (Ofirmev) 1,000 mg in 100 mls @ 200 mls/hr IV Q6HP PRN; Protocol PRN Reason: PAIN/FEVER > 101 Iron Carb/Multivit/[place]/Folic Acid (Multivit,Ther Iron,Ca,Fa & Min 1 Tablet) 1 tab PO DAILY [facility] Lactulose (Lactulose 20 Gm/30 Ml Oral.Graciela) 10 gm PO DAILYP PRN PRN Reason: Constipation Lisinopril (Lisinopril 2.5 Mg Tablet) 2.5 mg PO DAILY ERIKA Lorazepam (Lorazepam 1 Mg Tablet) 2 mg PO Q2HP PRN PRN Reason: CIWA-A >6 or HR >100 Lorazepam (Lorazepam 2 Mg/Ml Vial) 0 mg IV Q1HP PRN; Protocol PRN Reason: Alcohol Withdrawal Last Admin: 01/31/21 16:12 Dose: 3 mg Documented by: Lorazepam (Lorazepam 2 Mg/Ml Vial) 2 mg IV Q2HP PRN PRN Reason: Alcohol Withdrawal Metoprolol Tartrate (Metoprolol Tartrate 50 Mg Tablet) 100 mg PO BID [facility] Last Admin: 01/31/21 20:43 Dose: 100 mg Documented by: Nicotine (Nicotine 21 Mg Patch) 21 mg TOPICAL DAILY@1000 ERIKA Ondansetron HCl (Ondansetron 4 Mg/2 Ml Vial) 4 mg IV Q4HP PRN; Protocol PRN Reason: Nausea And Vomiting Last Admin: 02/01/21 03:25 Dose: 4 mg Documented by: Pantoprazole Sodium (Pantoprazole 40 Mg Vial) 40 mg IV QAMAC [facility] Senna (Sennosides 1 Tablet) 2 tab PO HSP PRN PRN Reason: Constipation Sodium Chloride (0.9 % Sodium Chloride 10 Ml Syringe) 10 ml IV Q8 [facility] Last Admin: 02/01/21 06:04 Dose: 10 ml Documented by: A/P Assessment and plan (1) Alcohol withdrawal delirium: Status: Acute (2) Leukocytosis: Status: Acute (3) Alcoholic hepatitis: Status: Acute (4) Atrial fibrillation with RVR: Status: Acute (5) Systolic CHF, chronic: Status: Acute Narrative A/P Narrative: Assessment and Plans: 1. 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 Atrial fibrillation: Unknown chronicity [id number] score of 0, no indication for anticoagulation therapy at this point Metoprolol tartrate 100mg PO BID Lopressor IV PRN HR>120 bpm 2D echocardiogram, atrial fibrillation with LVEF 48%. No endocardial vegetations. 3. 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 Lymphocytosis: Peripheral smear-->marked lymphocytosis, mature and small. Worrisome for CLL/SLL. Will consider hematology referral cbc w/ auto diff in the morning to trend WBC and lymphocyte count-->WBC count and lymphocyte % falling 5. Chronic systolic CHF: 2D echocardiogram, atrial fibrillation with LVEF 48%. No endocardial vegetations. Metoprolol tartrate 100mg PO BID Lisinopril 2.5mg PO daily GI ppx: Protonix DVT ppx: Lovenox Code status: Full Prognosis: extremely guarded Disposition: inpatient ICU telemetry Critical Care Time: 1hr Time Spent With Patient Time: Total time spent is greater than 50% in coordination of care (as documented) at patient's floor/unit and/or counseling patient: Total time spent with greater than 50% in coordination of care (as documented) at patient's floor/unit and/or counseling patient:: Greater than 35 minutes
[2021-02-01] MEDS: LISINOPRIL 2.5 MG TABLET PO SCH (09:00)
[2021-02-01] MEDS: METOPROLOL TARTRATE 50 MG TABLET PO SCH ×2 (09:00→20:01)
[2021-02-01] MEDS: MULTIVIT,THER IRON,CA,FA & MIN 1 TABLET PO SCH (09:00)
[2021-02-01] MEDS ORDERED: cloNIDine TTS 1 1 PATCH PATCH TD SCH (09:00)
[2021-02-01] MEDS: DOCUSATE SODIUM 100 MG CAPSULE PO SCH ×2 (09:01→20:21)
[2021-02-01] MEDS: LORazepam 2 MG/ML VIAL IV PRN ×6 (09:05→23:05)
[2021-02-01 09:30] LABS: ALT/SGPT 78 U/L (<40); AST/SGOT 113 U/L (<40); Albumin 3.4 gm/dL (3.2-5.2); Albumin/Globulin Ratio 1.6 (1.0-2.3); Alkaline Phosphatase 83 U/L (39-117); Bilirubin,Total 2.1 mg/dL (0.1-1.0); Blood Urea Nitrogen 14 mg/dL (6-20); Calcium 8.2 mg/dL (8.6-10.4); Carbon Dioxide 22 mmol/L (22-30); Chloride 100 mmol/L (96-108); Globulin 2.1 gm/dL (2.2-3.7); Glomerular Filtration Rate 73; Glucose 131 mg/dL (70-105)
--- NOTE | 2021-02-01 09:41 | Cat Scan Report ---
INDICATION: altered mental status COMPARISON: None. TECHNIQUE: Axial noncontrast-enhanced images through the brain. Sagittally and coronally reformatted images. FINDINGS: There is a calcified extra axial mass in the right frontal region. This has a dural base and abuts the anterior falx cerebri. This measures 3.9 x 3.3 x 3.1 cm. Appearance is consistent with calcified meningioma. There is localized mass effect with effacement of underlying sulci. There is mild associated vasogenic edema. No transfalcine or uncal herniation Cerebral hemispheres:Negative. No intra-axial abnormality. No intra-axial hematoma. No localized mass effect.Brain volume is within normal limits for age. Periventricular white matter is negative without significant attenuation abnormality. There is mild vasogenic edema adjacent to the right frontal meningioma. No other intra-axial abnormality Brainstem and cerebellum:No intra-axial abnormality Extra-axial: Right frontal meningioma as described above. No other extra-axial abnormalities. No acute hemorrhage. No subdural or epidural hematoma. No subarachnoid hemorrhage. Basilar cisterns are normal Calvarial:No calvarial fracture. No lytic lesion Temporal bones are negative. No destructive lesions Soft tissue, orbits, sinuses:Orbits and visualized facial soft tissues and paranasal sinuses are negative IMPRESSION: 1. Right frontal meningioma abutting the falx cerebri. This measures 3.9 cm maximally. 2. Localized mass effect and mild vasogenic edema The exam was performed using radiation dose optimization techniques including, but not limited to, automated exposure control, adjustment of the mA and/or kV according to patient size and use of iterative reconstruction technique. Interpreted and Authenticated by: Manuel Ortiz 02/01/21
[2021-02-01] MEDS: NICOTINE 21 MG PATCH TOPICAL SCH (09:54)
[2021-02-01] MEDS: ACETAMINOPHEN 1,000 MG/100 ML BAG IV PRN (09:54)
--- NOTE | 2021-02-01 10:05 | Cat Scan Report ---
INDICATION: rule out PE COMPARISON: None TECHNIQUE: Axial images obtained through the chest. 80ml Isovue 370 injected intravenously, and scanning was performed during pulmonary arterial phase. Sagittally and coronally reformatted images were obtained. MIP reformatted images. FINDINGS: Lungs:There are pulmonary parenchymal infiltrates with right lower lobe predominance. Appearance is consistent with pneumonia. Aspiration pneumonia is possible. No focal pulmonary parenchymal mass. No definite emphysema. Mediastinum, vascular:Main pulmonary artery, right pulmonary artery, left pulmonary artery are negative. No intraluminal filling defects. No lobar, segmental, or subsegmental emboli. Thoracic aorta is negative. No aneurysmal dilatation. Main pulmonary artery measures 26 mm. This is normal No pathologic mediastinal or hilar adenopathy Heart:No cardiomegaly. No pericardial effusion. There is enlargement of the right atrium. There is significant reflux of contrast material into the inferior vena cava and hepatic veins. Appearance is consistent with right heart strain or failure. Pleura:Very small left pleural effusion. No significant right pleural effusion. No pleural-based mass Axilla, supraclavicular regions, chest wall:No pathologic axillary or supraclavicular adenopathy. Musculoskeletal:Negative thoracic spine. No compression fracture. No lytic lesion. No rib or sternal lesions Upper Abdomen:Negative IMPRESSION: 1. Negative pulmonary CTA. No pulmonary embolism 2. Pulmonary parenchymal infiltrates with right lower lobe predominance. Appearance is consistent with pneumonia. 3. Right atrial enlargement and significant reflux of contrast material into the hepatic veins and inferior vena cava The exam was performed using radiation dose optimization techniques including, but not limited to, automated exposure control, adjustment of the mA and/or kV according to patient size and use of iterative reconstruction technique. Interpreted and Authenticated by: Manuel Ortiz 02/01/21
[2021-02-01] MEDS ORDERED: CALCIUM GLUCONATE 4.65 MEQ/10 ML VIAL IV ONE (10:19)
[2021-02-01] MEDS ORDERED: DEXTROSE 50% 50 ML VIAL IV ONE (10:19)
[2021-02-01] MEDS ORDERED: INSULIN REGULAR, HUMAN 1 UNIT/0.01 ML UNIT IV ONE (10:19)
[2021-02-01] MEDS ORDERED: FUROSEMIDE 40 MG/4 ML VIAL IV ONE (10:19)
[2021-02-01] MEDS ORDERED: CALCIUM GLUCONATE 9.3 MEQ in DEXTROSE 5% IN WATER 50 ML IV ONE (10:30)
[2021-02-01] MEDS: METOPROLOL TARTRATE 5 MG/5 ML VIAL IV PRN ×2 (11:06→12:00)
[2021-02-01] MEDS: AZITHROMYCIN 500 MG in DEXTROSE 5% IN WATER 250 ML IV SCH (11:57)
[2021-02-01] MEDS: cefTRIAXone 1 GM VIAL IV SCH (11:57)
[2021-02-01 13:58] LABS: Blood Urea Nitrogen 16 mg/dL (6-20); Calcium 9.2 mg/dL (8.6-10.4); Carbon Dioxide 23 mmol/L (22-30); Chloride 99 mmol/L (96-108); Glomerular Filtration Rate 66; Glucose 92 mg/dL (70-105)
[2021-02-01] MEDS: NITROGLYCERIN/D5W 25 MG/250 ML BOTTLE IV SCH (14:46)
[2021-02-01] MEDS ORDERED: PANTOPRAZOLE 40 MG VIAL IV ONE (15:33)
[2021-02-02] MEDS: DEXMEDETOMIDINE 400 MCG in PREMIX 1 BAG IV SCH ×6 (01:16→20:59)
[2021-02-02] MEDS: 0.9 % SODIUM CHLORIDE 250 ML IV SCH ×7 (01:19→22:25)
[2021-02-02] MEDS: LORazepam 2 MG/ML VIAL IV PRN ×6 (01:28→21:18)
[2021-02-02] MEDS: NITROGLYCERIN/D5W 25 MG/250 ML BOTTLE IV SCH ×2 (01:32→14:30)
[2021-02-02] MEDS: 0.9 % SODIUM CHLORIDE 10 ML SYRINGE IV SCH ×3 (05:03→20:29)
[2021-02-02] MEDS: PANTOPRAZOLE 40 MG VIAL IV SCH (07:09)
[2021-02-02 07:19] LABS: Basophils # (Auto) 0.06 K/mcL (0.00-0.30); Basophils % (Auto) 0.2 % (0.0-2.0); Eosinophils # (Auto) 0.15 K/mcL (0.00-0.70); Eosinophils % (Auto) 0.5 % (0.0-7.0); Hematocrit 37.2 % (40.1-51.0); Hemoglobin 12.8 g/dL (13.7-17.5); Lymphocytes # (Auto) 23.65 K/mcL (1.50-4.80); Lymphocytes % (Auto) 79.1 % (15.5-49.0); Mean Cell Volume 101.1 fL (80.0-100.0); Mean Corpuscular HGB Conc 34.4 g/dL (31.0-36.0); Mean Platelet Volume 11.8 fL (7.4-10.4); Monocytes # (Auto) 1.43 K/mcL (0.10-0.90); Monocytes % (Auto) 4.8 % (1.0-12.0); Neutrophils % (Auto) 15.4 % (38.0-78.0); Platelet Count 58 K/mcL (140-440); RBC 3.68 M/mcL (4.63-6.08); WBC 29.9 K/mcL (4.5-11.0)
[2021-02-02 07:41] LABS: Phosphorous 4.1 mg/dL (2.5-4.5)
[2021-02-02 07:54] LABS: ALT/SGPT 54 U/L (<40); AST/SGOT 64 U/L (<40); Albumin/Globulin Ratio 1.4 (1.0-2.3); Alkaline Phosphatase 73 U/L (39-117); Bilirubin,Total 1.6 mg/dL (0.1-1.0); Blood Urea Nitrogen 13 mg/dL (6-20); Carbon Dioxide 21 mmol/L (22-30); Chloride 97 mmol/L (96-108); Globulin 2.1 gm/dL (2.2-3.7); Glomerular Filtration Rate 94; Glucose 116 mg/dL (70-105)
[2021-02-02] MEDS ORDERED: MAGNESIUM SULFATE 8.12 MEQ/2 ML VIAL IV ONE (09:06)
--- NOTE | 2021-02-02 09:10 | Internal Med Progress Note ---
SUBJECTIVE Subjective Patient information: Note initiated : 02/02/21 at 9:08 am Service Date, if different from initiated Date: [] Patient: Abram Chinchilla a 60 y/o M admitted on 01/29/21 for alcohol withdrawal, treatment options. Chief Complaint: [] Interval history: History of present illness: Mr. Chinchilla is a 60 year old M chronic alcoholism for decades, referred by outside clinic for alcohol withdrawal assistance. Patient has been drinking 1 to 1.5 L of vodka per per day with last drink 1 hour prior to arriving our ED. Not much medical history could otherwise be obtained due to clinical circumstances. Labs significant for leukocytosis with WBC 47.1, with lymphocyte predominance. Serum alcohol level 0.433. Urine drug screen pending. 01/30: CIWA score 10-12 overnight, 10 this morning. 01/31: CIWA score as high as 29 last evening, currently at 12. No seizures. c/o visual hallucinations. Denies auditory hallucination. Denies anxiety. Denies agitation. Denies insomnia. Denies nausea or vomiting. Denies muscle cramps. 02/01: Still on Precedex drip. Anyi score of 4 this morning. No seizure. Patient not verbal. No subjective could be obtained. 02/02: CIWA score of 15. Still on Precedex drip. Still on Nitroglycerin drip. Patient yelling to leave AMA from time to time. No self harm behaviors. Constitutional Vitals: Vital Signs Temp Pulse Resp BP Pulse Ox 37.2 C 95 H 31 H 130/103 94 02/02/21 09:01 02/02/21 09:01 02/02/21 09:01 02/02/21 09:01 02/02/21 09:01 Period Temp Pulse Resp BP Sys/Johnson Pulse Ox Last 24 Hr 36.7 C-38.7 C 38-95 14-39 105-162/53-131 91-99 Intake and Output 02/01/21 02/02/21 02/02/21 21:59 05:59 13:59 Intake Total 320 2586 624 Output Total 2500 1350 710 Balance -2180 1236 -86 Weight 99.609 kg Intake & Output: Intake & Output 02/01/21 02/02/21 02/02/21 21:59 05:59 13:59 Intake Total 320 2586 624 Output Total 2500 1350 710 Balance -2180 1236 -86 Weight 99.609 kg Intake: IV 320 1736 199 Sodium Chloride 0.9% 1,000 ml @ 972 100 mls/hr IV .Q10H ERIKA Rx#: [id number] Sodium Chloride 0.9% 250 ml @ 421 20 mls/hr IV .[id number] ERIKA Rx#: [id number] Precedex 400 Mcg/100 ml 200 200 74 Dextrose 400 Mcg In Premix 1 Bag @ 0.2 MCG/KG/HR 4.903 mls/ hr IV .[id number] ERIKA Rx#: [id number] NITROGLYCERIN/D5W 25 mg In 250 120 143 125 ml @ 5 MCG/MIN 3 mls/hr IV . Q24H ERIKA Rx#:[id number] Oral 850 425 Output: Urine Catheter Amount 2500 1350 710 Other: Urine Appearance Clear Clear Clear Uretheral (Dial) Clear Clear Urine Color Straw Bright Yellow Bright Yellow Uretheral (Dial) Bright Yellow Bright Yellow Urine Odor Normal # Bowel Movements 0 General appearance: average body habitus, disheveled and mild distress; no cooperative Head Head exam: Present atraumatic and normal inspection Eye Eye exam: Present normal appearance ENT ENT exam: Present mucous membranes moist, normal exam and normal external ear exam Neck Neck exam: Present normal inspection Respiratory Respiratory exam: Present normal respiratory exam and rhonchi; Absent wheezes Cardiovascular Cardiovascular exam: Present normal rate and rhythm GI/Abdominal GI/Abdominal exam: Present normal bowel sounds Back Exam Back exam: Present normal inspection Neurological Exam Neurological exam: Present alert, altered, motor sensory deficit and reflexes normal; Absent oriented X3 Psychiatric Psychiatric exam: Present agitated and anxious Skin Skin exam: Present intact and warm OBJ DATA Labs CBC & Chem 7: 02/02/21 05:51 02/02/21 05:57 Labs: Abnormal Lab Results 02/02/21 02/02/21 02/02/21 05:57 05:51 05:51 WBC 29.9 H RBC 3.68 L Hgb 12.8 L Hct 37.2 L MCV 101.1 H MCH 34.8 H Plt Count 58 L MPV 11.8 H Neut % (Auto) 15.4 L Lymph % (Auto) 79.1 H Lymph # (Auto) 23.65 H [place] # (Auto) 1.43 H Sodium 132 L Potassium Carbon Dioxide 21 L Glucose 116 H Calcium 8.0 L Magnesium 1.4 L Total Bilirubin 1.6 H AST 64 H ALT 54 H Total Protein 5.1 L Albumin 3.0 L Globulin 2.1 L 02/01/21 02/01/21 01/31/21 08:39 05:55 05:19 WBC 30.6 H* RBC 4.47 L Hgb Hct MCV 102.9 H MCH 34.2 H Plt Count 54 L MPV 12.9 H Neut % (Auto) 24.2 L Lymph % (Auto) 71.7 H Lymph # (Auto) 21.94 H [place] # (Auto) 1.10 H Sodium 131 L Potassium 5.6 H Carbon Dioxide Glucose 131 H 180 H Calcium 8.2 L Magnesium Total Bilirubin 2.1 H AST 113 H ALT 78 H Total Protein 5.5 L Albumin Globulin 2.1 L 01/31/21 05:19 WBC 25.7 H RBC 4.03 L Hgb Hct MCV 104.2 H MCH 34.7 H Plt Count 62 L MPV 11.9 H Neut % (Auto) 17.3 L Lymph % (Auto) 79.0 H Lymph # (Auto) 20.34 H [place] # (Auto) Sodium Potassium Carbon Dioxide Glucose Calcium Magnesium Total Bilirubin AST ALT Total Protein Albumin Globulin Meds: Medications Acetaminophen (Acetaminophen 325 Mg Tablet) 650 mg PO Q6HP PRN; Protocol PRN Reason: Per Pain Protocol/Fever > 101 Albuterol/Ipratropium (Ipratropium/Albuterol 3 Ml Ampul.Neb) 3 ml NEB Q4HRT PRN PRN Reason: Wheezing Ceftriaxone Sodium (Ceftriaxone 1 Gm Vial) 1 gm IV DAILY ERIKA; Protocol Last Admin: 02/01/21 11:57 Dose: 1 gm Documented by: Clonidine HCl (Clonidine Tts 1 1 Patch Patch) 1 patch TD WEEKLY ERIKA Last Admin: 02/01/21 09:05 Dose: 1 patch Documented by: Docusate Sodium (Docusate Sodium 100 Mg Capsule) 100 mg PO BID ERIKA Last Admin: 02/01/21 20:21 Dose: Not Given Documented by: Hydralazine HCl (Hydralazine 20 Mg/Ml Vial) 10 mg IV Q4-6HP PRN PRN Reason: Hypertension Hydroxyzine HCl (Hydroxyzine 25 Mg Tablet) 0 mg PO Q4HP PRN PRN Reason: Anxiety/Agitation Dexmedetomidine HCl 400 mcg/ (Premix) 100 mls @ 4.903 mls/hr IV .[id number] [facility]; Protocol Last Titration: 02/02/21 08:43 Dose: 1.2 mcg/kg/hr, 29.418 mls/hr Documented by: Sodium Chloride (Sodium Chloride 0.9%) 250 mls @ 20 mls/hr IV .[id number] [facility] Last Admin: 02/02/21 05:02 Dose: Not Given Documented by: Sodium Chloride (Sodium Chloride 0.9%) 1,000 mls @ 100 mls/hr IV .Q10H [facility] Last Admin: 02/01/21 23:25 Dose: 100 mls/hr Documented by: Acetaminophen (Ofirmev) 1,000 mg in 100 mls @ 200 mls/hr IV Q6HP PRN; Protocol PRN Reason: PAIN/FEVER > 101 Last Infusion: 02/01/21 10:24 Dose: Infused Documented by: Azithromycin 500 mg/ Dextrose 250 mls @ 250 mls/hr IV DAILY@1000 ERIKA; Protocol Stop: 02/03/21 10:59 Last Infusion: 02/01/21 13:27 Dose: Infused Documented by: Nitroglycerin/Dextrose (Nitroglycerin/D5w) 25 mg in 250 mls @ 3 mls/hr IV .Q24H [facility]; Protocol Last Titration: 02/02/21 08:43 Dose: 35 mcg/min, 21 mls/hr Documented by: Sodium Chloride (Sodium Chloride 0.9%) 250 mls @ 20 mls/hr IV .[id number] [facility] Last Admin: 02/02/21 01:19 Dose: 20 mls/hr Documented by: Iron Carb/Multivit/[place]/Folic Acid (Multivit,Ther Iron,Ca,Fa & Min 1 Tablet) 1 tab PO DAILY [facility] Last Admin: 02/01/21 09:00 Dose: Not Given Documented by: Lactulose (Lactulose 20 Gm/30 Ml Oral.Graciela) 10 gm PO DAILYP PRN PRN Reason: Constipation Lisinopril (Lisinopril 2.5 Mg Tablet) 20 mg PO DAILY [facility] Lorazepam (Lorazepam 1 Mg Tablet) 2 mg PO Q2HP PRN PRN Reason: CIWA-A >6 or HR >100 Lorazepam (Lorazepam 2 Mg/Ml Vial) 2 mg IV Q2HP PRN PRN Reason: Alcohol Withdrawal Last Admin: 02/02/21 08:39 Dose: 2 mg Documented by: Magnesium Sulfate (Magnesium Sulfate 8.12 Meq/2 Ml Vial) 8.12 meq IV ONCE ONE Stop: 02/02/21 09:07 Metoprolol Tartrate (Metoprolol Tartrate 50 Mg Tablet) 100 mg PO BID [facility] Last Admin: 02/01/21 20:01 Dose: 100 mg Documented by: Metoprolol Tartrate (Metoprolol Tartrate 5 Mg/5 Ml Vial) 5 mg IV Q1HP PRN PRN Reason: Blood Pressure Last Admin: 02/01/21 12:00 Dose: 5 mg Documented by: Nicotine (Nicotine 21 Mg Patch) 21 mg TOPICAL DAILY@1000 [facility] Last Admin: 02/01/21 09:54 Dose: 21 mg Documented by: Ondansetron HCl (Ondansetron 4 Mg/2 Ml Vial) 4 mg IV Q4HP PRN; Protocol PRN Reason: Nausea And Vomiting Last Admin: 02/01/21 03:25 Dose: 4 mg Documented by: Pantoprazole Sodium (Pantoprazole 40 Mg Vial) 40 mg IV QAMAC [facility] Last Admin: 02/02/21 07:09 Dose: 40 mg Documented by: Senna (Sennosides 1 Tablet) 2 tab PO HSP PRN PRN Reason: Constipation Sodium Chloride (0.9 % Sodium Chloride 10 Ml Syringe) 10 ml IV Q8 [facility] Last Admin: 02/02/21 05:03 Dose: 10 ml Documented by: A/P Assessment and plan (1) Alcohol withdrawal delirium: Status: Acute (2) Leukocytosis: Status: Acute (3) Alcoholic hepatitis: Status: Acute (4) Atrial fibrillation with RVR: Status: Acute (5) Systolic CHF, chronic: Status: Acute (6) Hypomagnesemia: Status: Acute (7) Meningioma: Status: Acute (8) Hypertensive urgency: Status: Acute (9) Aspiration pneumonia: Status: Acute Narrative A/P Narrative: Assessment and Plans: 1. Delirium Tremens: Stays in inpatient ICU with telemetry Seizure precautions Fall precautions Aspiration precautions Banana bag X3 days Ativan IV PRN alcohol withdrawal symptoms according to [facility] protocol Precedex drip Clonidine patch transdermal director of therapy services for eventual placement pending [employer] patient on quitting alcohol 2. Atrial fibrillation: Unknown chronicity [id number] score of 0, no indication for anticoagulation therapy at this point Metoprolol tartrate 100mg PO BID Lopressor IV PRN HR>120 bpm 2D echocardiogram, atrial fibrillation with LVEF 48%. No endocardial vegetations. 3. Alcoholic hepatitis: Daily CMP to trend LFTs Limited abdominal US to look for cirrhosis--> no signs of cirrhosis or liver lesion [employer] patient on quitting alcohol 4. Lymphocytosis: Peripheral smear-->marked lymphocytosis, mature and small. Worrisome for CLL/SLL. Will consider hematology referral cbc w/ auto diff in the morning to trend WBC and lymphocyte count-->WBC count and lymphocyte % falling 5. Chronic systolic CHF: 2D echocardiogram, atrial fibrillation with LVEF 48%. No endocardial vegetations. Metoprolol tartrate 100mg PO BID Lisinopril 20mg PO daily 6. Hypertensive urgency: Slowly wean off Nitroglycerin drip Metoprolol tartrate 100mg PO BID Lisinopril 20mg PO daily 7. Hypomagnesemia: MgSO4 IV once Repeat serum Mg level daily and repeat replacement as needed Also check CMP daily to trend serum potassium level and replace as needed 8. Aspiration pneumonia: Currently on room air Blood culture no growth to date Sputum culture no growth to date Rocephin Zithromax Tylenol PRN fever 9. Brain lesion suspecting meningioma: Calcified extra axial mass in the right frontal region measuring 3.9X3.3X3.1cm with mild associated vasogenic edema. No transfalcine or uncal herniation Talked to neurosurgeon Dr. Munoz from [facility]-->Most oj hart slow growing, okay to follow up in outpatient setting in a few months. Will make him a referral. No need to start steroid for adj. vasogenic edema either since it is very mild. GI ppx: Protonix DVT ppx: Lovenox Code status: Full Prognosis: extremely guarded Disposition: inpatient ICU telemetry Critical Care Time: 1hr Time Spent With Patient Time: Total time spent is greater than 50% in coordination of care (as documented) at patient's floor/unit and/or counseling patient: Total time spent with greater than 50% in coordination of care (as documented) at patient's floor/unit and/or counseling patient:: Greater than 35 minutes
[2021-02-02] MEDS ORDERED: HALOPERIDOL LACTATE 5 MG/ML VIAL IV PRN (09:13)
[2021-02-02] MEDS: 0.9 % SODIUM CHLORIDE 1,000 ML IV SCH ×3 (09:15→22:09)
[2021-02-02] MEDS: METOPROLOL TARTRATE 50 MG TABLET PO SCH ×2 (09:22→20:29)
[2021-02-02] MEDS: DOCUSATE SODIUM 100 MG CAPSULE PO SCH ×2 (09:27→20:28)
[2021-02-02] MEDS: MULTIVIT,THER IRON,CA,FA & MIN 1 TABLET PO SCH (09:27)
[2021-02-02] MEDS ORDERED: MAGNESIUM SULFATE 8.12 MEQ in DEXTROSE 5% IN WATER 50 ML IV ONE (09:30)
[2021-02-02] MEDS ORDERED: METOPROLOL TARTRATE 50 MG TABLET PO ONE (09:31)
[2021-02-02] MEDS: LISINOPRIL 2.5 MG TABLET PO SCH (09:32)
[2021-02-02] MEDS: LISINOPRIL 20 MG TABLET PO SCH (09:34)
[2021-02-02] MEDS: cefTRIAXone 1 GM VIAL IV SCH (09:34)
[2021-02-02] MEDS: HALOPERIDOL LACTATE 5 MG/ML VIAL IM PRN (10:49)
[2021-02-02] MEDS: AZITHROMYCIN 500 MG in DEXTROSE 5% IN WATER 250 ML IV SCH (11:18)
[2021-02-02] MEDS: NICOTINE 21 MG PATCH TOPICAL SCH (11:18)
[2021-02-02] MEDS: FUROSEMIDE 40 MG/4 ML VIAL IV SCH ×2 (11:18→17:04)
[2021-02-02] MEDS ORDERED: ACETAMINOPHEN 650 MG/65 ML BAG IV PRN (14:12)
[2021-02-02] MEDS: ACETAMINOPHEN 1,000 MG/100 ML BAG IV PRN (15:00)
[2021-02-02] MEDS: ACETAMINOPHEN 325 MG TABLET PO PRN (18:30)
[2021-02-02] MEDS: hydrALAZINE 20 MG/ML VIAL IV PRN (19:10)
[2021-02-03] MEDS: hydrALAZINE 20 MG/ML VIAL IV PRN ×2 (01:08→07:17)
[2021-02-03] MEDS: DEXMEDETOMIDINE 400 MCG in PREMIX 1 BAG IV SCH ×3 (01:28→10:06)
[2021-02-03] MEDS: 0.9 % SODIUM CHLORIDE 250 ML IV SCH ×5 (02:18→16:36)
[2021-02-03] MEDS: hydrOXYzine 25 MG TABLET PO PRN ×3 (02:19→23:00)
[2021-02-03] MEDS: 0.9 % SODIUM CHLORIDE 1,000 ML IV SCH ×2 (05:42→08:42)
[2021-02-03] MEDS: 0.9 % SODIUM CHLORIDE 10 ML SYRINGE IV SCH ×3 (06:32→21:45)
[2021-02-03 07:18] LABS: Basophils # (Auto) 0.06 K/mcL (0.00-0.30); Basophils % (Auto) 0.2 % (0.0-2.0); Eosinophils % (Auto) 0.4 % (0.0-7.0); Hematocrit 41.7 % (40.1-51.0); Hemoglobin 15.1 g/dL (13.7-17.5); Lymphocytes # (Auto) 23.28 K/mcL (1.50-4.80); Lymphocytes % (Auto) 82.5 % (15.5-49.0); Mean Cell Volume 97.7 fL (80.0-100.0); Mean Corpuscular HGB Conc 36.2 g/dL (31.0-36.0); Mean Platelet Volume 11.8 fL (7.4-10.4); Monocytes # (Auto) 1.27 K/mcL (0.10-0.90); Monocytes % (Auto) 4.5 % (1.0-12.0); Neutrophils % (Auto) 12.4 % (38.0-78.0); Platelet Count 74 K/mcL (140-440); RBC 4.27 M/mcL (4.63-6.08); WBC 28.2 K/mcL (4.5-11.0)
[2021-02-03 07:32] LABS: Phosphorous 3.7 mg/dL (2.5-4.5)
[2021-02-03 07:34] LABS: ALT/SGPT 53 U/L (<40); AST/SGOT 59 U/L (<40); Albumin 3.2 gm/dL (3.2-5.2); Albumin/Globulin Ratio 1.2 (1.0-2.3); Alkaline Phosphatase 75 U/L (39-117); Bilirubin,Total 1.4 mg/dL (0.1-1.0); Blood Urea Nitrogen 8 mg/dL (6-20); Calcium 8.3 mg/dL (8.6-10.4); Carbon Dioxide 23 mmol/L (22-30); Chloride 98 mmol/L (96-108); Globulin 2.6 gm/dL (2.2-3.7); Glomerular Filtration Rate 104; Glucose 114 mg/dL (70-105)
[2021-02-03] MEDS: PANTOPRAZOLE 40 MG VIAL IV SCH (08:40)
[2021-02-03] MEDS: METOPROLOL TARTRATE 50 MG TABLET PO SCH ×2 (08:40→19:29)
[2021-02-03] MEDS: cefTRIAXone 1 GM VIAL IV SCH (08:40)
[2021-02-03] MEDS: MULTIVIT,THER IRON,CA,FA & MIN 1 TABLET PO SCH (08:41)
[2021-02-03] MEDS: DOCUSATE SODIUM 100 MG CAPSULE PO SCH ×2 (08:41→19:30)
[2021-02-03] MEDS: LISINOPRIL 20 MG TABLET PO SCH (08:41)
[2021-02-03] MEDS ORDERED: amLODIPine 10 MG TABLET PO SCH (09:00)
[2021-02-03] MEDS: ONDANSETRON 4 MG/2 ML VIAL IV PRN (09:32)
[2021-02-03] MEDS ORDERED: MAGNESIUM SULFATE 8.12 MEQ/2 ML VIAL IV ONE (09:45)
--- NOTE | 2021-02-03 09:52 | Internal Med Progress Note ---
SUBJECTIVE Subjective Patient information: Note initiated : 02/03/21 at 9:46 am Service Date, if different from initiated Date: [] Patient: Abram Chinchilla a 60 y/o M admitted on 01/29/21 for alcohol withdrawal, treatment options. Chief Complaint: [] Interval history: History of present illness: Mr. Chinchilla is a 60 year old M chronic alcoholism for decades, referred by outside clinic for alcohol withdrawal assistance. Patient has been drinking 1 to 1.5 L of vodka per per day with last drink 1 hour prior to arriving our ED. Not much medical history could otherwise be obtained due to clinical circumstances. Labs significant for leukocytosis with WBC 47.1, with lymphocyte predominance. Serum alcohol level 0.433. Urine drug screen pending. 01/30: CIWA score 10-12 overnight, 10 this morning. 01/31: CIWA score as high as 29 last evening, currently at 12. No seizures. c/o visual hallucinations. Denies auditory hallucination. Denies anxiety. Denies agitation. Denies insomnia. Denies nausea or vomiting. Denies muscle cramps. 02/01: Still on Precedex drip. Anyi score of 4 this morning. No seizure. Patient not verbal. No subjective could be obtained. 02/02: CIWA score of 15. Still on Precedex drip. Still on Nitroglycerin drip. Patient yelling to leave AMA from time to time. No self harm behaviors. 02/03: CIWA score of 12 this morning. Still on Precedex drip. Nitroglycerin drip was switched off earlier this morning. No more attempt of leaving. c/o visual hallucinations. Denies auditory hallucinations. Denies nausea or vomiting. Denies agitation or anxiety. Denies insomnia. Denies increased hand tremors. Constitutional Vitals: Vital Signs Temp Pulse Resp BP Pulse Ox 36.8 C 90 27 H 124/92 94 02/03/21 08:31 02/03/21 00:24 02/03/21 08:31 02/03/21 08:31 02/03/21 08:31 Period Temp Pulse Resp BP Sys/Johnson Pulse Ox Last 24 Hr 36.7 C-37.7 C 40-101 4-34 107-178/79-135 87-99 Intake and Output 02/02/21 02/03/21 02/03/21 21:59 05:59 13:59 Intake Total 1135 3574 1214 Output Total 7375 2800 775 Balance -6240 774 439 Weight 95.3 kg Intake & Output: Intake & Output 02/02/21 02/03/21 02/03/21 21:59 05:59 13:59 Intake Total 1135 3574 1214 Output Total 7375 2800 775 Balance -6240 774 439 Weight 95.3 kg Intake: IV 710 1449 1214 Sodium Chloride 0.9% 1,000 ml @ 1000 1000 100 mls/hr IV .Q10H [facility]RIKA Rx#: [id number] Sodium Chloride 0.9% 250 ml @ 311 235 142 20 mls/hr IV .[id number] [facility] Rx#: [id number] Precedex 400 Mcg/100 ml 200 200 72 Dextrose 400 Mcg In Premix 1 Bag @ 0.2 MCG/KG/HR 4.903 mls/ hr IV .[id number] [facility]RIKA Rx#: [id number] NITROGLYCERIN/D5W 25 mg In 250 99 14 0 ml @ 5 MCG/MIN 3 mls/hr IV . Q24H ERIKA Rx#:[id number] Oral 425 2125 Output: Urine Catheter Amount 7376 2800 775 Other: Urine Appearance Clear Clear Clear Purulent Uretheral (Dial) Clear Clear Urine Color Pale Pale Bright Yellow Uretheral (Dial) Pale Pale # Bowel Movements 0 General appearance: cooperative, disheveled and no acute distress Head Head exam: Present atraumatic and normal inspection Eye Eye exam: Present normal appearance ENT ENT exam: Present mucous membranes moist, normal exam and normal external ear exam Neck Neck exam: Present normal inspection Respiratory Respiratory exam: Present normal respiratory exam Cardiovascular Cardiovascular exam: Present normal rate and rhythm GI/Abdominal GI/Abdominal exam: Present normal bowel sounds Back Exam Back exam: Present normal inspection Neurological Exam Neurological exam: Present alert and motor sensory deficit; Absent oriented X3 Additional comments: oriented X [address] only Psychiatric Psychiatric exam: Present flat affect; Absent agitated or anxious Skin Skin exam: Present intact and warm OBJ DATA Labs CBC & Chem 7: 02/03/21 05:39 02/03/21 05:38 Labs: Abnormal Lab Results 02/03/21 02/03/21 02/02/21 05:39 05:38 05:57 WBC 28.2 H RBC 4.27 L Hgb Hct MCV MCH 35.4 H MCHC 36.2 H Plt Count 74 L MPV 11.8 H Neut % (Auto) 12.4 L Lymph % (Auto) 82.5 H Lymph # (Auto) 23.28 H [place] # (Auto) 1.27 H Sodium 132 L Potassium Carbon Dioxide 21 L Glucose 114 H 116 H Calcium 8.3 L 8.0 L Magnesium Total Bilirubin 1.4 H 1.6 H AST 59 H 64 H ALT 53 H 54 H Total Protein 5.8 L 5.1 L Albumin 3.0 L Globulin 2.1 L 02/02/21 02/02/21 02/01/21 05:51 05:51 08:39 WBC 29.9 H RBC 3.68 L Hgb 12.8 L Hct 37.2 L MCV 101.1 H MCH 34.8 H MCHC Plt Count 58 L MPV 11.8 H Neut % (Auto) 15.4 L Lymph % (Auto) 79.1 H Lymph # (Auto) 23.65 H [place] # (Auto) 1.43 H Sodium 131 L Potassium 5.6 H Carbon Dioxide Glucose 131 H Calcium 8.2 L Magnesium 1.4 L Total Bilirubin 2.1 H AST 113 H ALT 78 H Total Protein 5.5 L Albumin Globulin 2.1 L 02/01/21 05:55 WBC 30.6 H* RBC 4.47 L Hgb Hct MCV 102.9 H MCH 34.2 H MCHC Plt Count 54 L MPV 12.9 H Neut % (Auto) 24.2 L Lymph % (Auto) 71.7 H Lymph # (Auto) 21.94 H [place] # (Auto) 1.10 H Sodium Potassium Carbon Dioxide Glucose Calcium Magnesium Total Bilirubin AST ALT Total Protein Albumin Globulin Meds: Medications Acetaminophen (Acetaminophen 325 Mg Tablet) 650 mg PO Q6HP PRN; Protocol PRN Reason: Per Pain Protocol/Fever > 101 Last Admin: 02/02/21 18:30 Dose: 650 mg Documented by: Albuterol/Ipratropium (Ipratropium/Albuterol 3 Ml Ampul.Neb) 3 ml NEB Q4HRT PRN PRN Reason: Wheezing Ceftriaxone Sodium (Ceftriaxone 1 Gm Vial) 1 gm IV DAILY ERIKA; Protocol Last Admin: 02/03/21 08:40 Dose: 1 gm Documented by: Clonidine HCl (Clonidine Tts 1 1 Patch Patch) 1 patch TD Q7D [facility] Docusate Sodium (Docusate Sodium 100 Mg Capsule) 100 mg PO BID ERIKA Last Admin: 02/03/21 08:41 Dose: 100 mg Documented by: Furosemide (Furosemide 40 Mg Tablet) 40 mg PO BIDD [facility] Haloperidol Lactate (Haloperidol Lactate 5 Mg/Ml Vial) 2 mg IM Q4HP PRN PRN Reason: ANXIETY/SEDATION Last Admin: 02/02/21 10:49 Dose: 2 mg Documented by: Hydralazine HCl (Hydralazine 20 Mg/Ml Vial) 10 mg IV Q4-6HP PRN PRN Reason: Hypertension Last Admin: 02/03/21 07:17 Dose: 10 mg Documented by: Hydroxyzine HCl (Hydroxyzine 25 Mg Tablet) 0 mg PO Q4HP PRN PRN Reason: Anxiety/Agitation Last Admin: 02/03/21 02:19 Dose: 25 mg Documented by: Dexmedetomidine HCl 400 mcg/ (Premix) 100 mls @ 4.903 mls/hr IV .[id number] [facility]; Protocol Last Titration: 02/03/21 08:42 Dose: 0.8 mcg/kg/hr, 19.612 mls/hr Documented by: Sodium Chloride (Sodium Chloride 0.9%) 250 mls @ 20 mls/hr IV .[id number] [facility] Last Admin: 02/03/21 07:55 Dose: Not Given Documented by: Sodium Chloride (Sodium Chloride 0.9%) 1,000 mls @ 100 mls/hr IV .Q10H [facility] Last Admin: 02/03/21 08:42 Dose: 100 mls/hr Documented by: Azithromycin 500 mg/ Dextrose 250 mls @ 250 mls/hr IV DAILY@1000 ERIKA; Protocol Stop: 02/03/21 10:59 Last Infusion: 02/02/21 12:18 Dose: Infused Documented by: Nitroglycerin/Dextrose (Nitroglycerin/D5w) 25 mg in 250 mls @ 3 mls/hr IV .Q24H [facility]; Protocol Last Titration: 02/03/21 09:24 Dose: Infused Documented by: Sodium Chloride (Sodium Chloride 0.9%) 250 mls @ 20 mls/hr IV .[id number] [facility] Last Infusion: 02/03/21 09:25 Dose: Infused Documented by: Acetaminophen (Ofirmev) 650 mg in 65 mls @ 130 mls/hr IV Q6HP PRN; Protocol PRN Reason: PAIN/FEVER > 101 Iron Carb/Multivit/[place]/Folic Acid (Multivit,Ther Iron,Ca,Fa & Min 1 Tablet) 1 tab PO DAILY [facility] Last Admin: 02/03/21 08:41 Dose: Not Given Documented by: Lactulose (Lactulose 20 Gm/30 Ml Oral.Graciela) 10 gm PO DAILYP PRN PRN Reason: Constipation Lisinopril (Lisinopril 20 Mg Tablet) 20 mg PO DAILY [facility] Last Admin: 02/03/21 08:41 Dose: 20 mg Documented by: Lorazepam (Lorazepam 1 Mg Tablet) 2 mg PO Q2HP PRN PRN Reason: CIWA-A >6 or HR >100 Last Admin: 02/03/21 08:57 Dose: 2 mg Documented by: Lorazepam (Lorazepam 2 Mg/Ml Vial) 2 mg IV Q2HP PRN PRN Reason: Alcohol Withdrawal Last Admin: 02/02/21 21:18 Dose: 2 mg Documented by: Magnesium Sulfate (Magnesium Sulfate 8.12 Meq/2 Ml Vial) 8.12 meq IV ONCE ONE Stop: 02/03/21 09:46 Metoprolol Tartrate (Metoprolol Tartrate 50 Mg Tablet) 100 mg PO BID [facility] Last Admin: 02/03/21 08:40 Dose: 100 mg Documented by: Metoprolol Tartrate (Metoprolol Tartrate 5 Mg/5 Ml Vial) 5 mg IV Q1HP PRN PRN Reason: Blood Pressure Last Admin: 02/01/21 12:00 Dose: 5 mg Documented by: Nicotine (Nicotine 21 Mg Patch) 21 mg TOPICAL DAILY@1000 [facility] Last Admin: 02/02/21 11:18 Dose: 21 mg Documented by: Ondansetron HCl (Ondansetron 4 Mg/2 Ml Vial) 4 mg IV Q4HP PRN; Protocol PRN Reason: Nausea And Vomiting Last Admin: 02/03/21 09:32 Dose: 4 mg Documented by: Pantoprazole Sodium (Pantoprazole 40 Mg Vial) 40 mg IV QAMAC [facility] Last Admin: 02/03/21 08:40 Dose: 40 mg Documented by: Potassium Chloride (Potassium Chloride 20 Meq Tablet) 20 meq PO BIDCC [facility] Senna (Sennosides 1 Tablet) 2 tab PO HSP PRN PRN Reason: Constipation Sodium Chloride (0.9 % Sodium Chloride 10 Ml Syringe) 10 ml IV Q8 [facility] Last Admin: 02/03/21 06:32 Dose: Not Given Documented by: A/P Assessment and plan (1) Alcohol withdrawal delirium: Status: Acute (2) Leukocytosis: Status: Acute (3) Alcoholic hepatitis: Status: Acute (4) Atrial fibrillation with RVR: Status: Acute (5) Systolic CHF, chronic: Status: Acute (6) Hypomagnesemia: Status: Acute (7) Meningioma: Status: Acute (8) Hypertensive urgency: Status: Acute (9) Aspiration pneumonia: Status: Acute (10) Hypokalemia: Status: Acute Narrative A/P Narrative: Assessment and Plans: 1. Delirium Tremens: Stays in inpatient ICU with telemetry Seizure precautions Fall precautions Aspiration precautions s/p Banana bag X3 days Ativan PO and IV PRN alcohol withdrawal symptoms according to [facility] protocol Precedex drip Clonidine patch transdermal guest services for eventual placement pending [employer] patient on quitting alcohol 2. Atrial fibrillation: Unknown chronicity [id number] score of 0, no indication for anticoagulation therapy at this point Metoprolol tartrate 100mg PO BID Lopressor IV PRN HR>120 bpm 2D echocardiogram, atrial fibrillation with LVEF 48%. No endocardial vegetations. 3. Alcoholic hepatitis: Daily CMP to trend LFTs Limited abdominal US to look for cirrhosis--> no signs of cirrhosis or liver lesion [employer] patient on quitting alcohol 4. Lymphocytosis: Peripheral smear-->marked lymphocytosis, mature and small. Worrisome for CLL/SLL. Will consider hematology referral cbc w/ auto diff in the morning to trend WBC and lymphocyte count-->WBC count and lymphocyte % falling 5. Chronic systolic CHF: 2D echocardiogram, atrial fibrillation with LVEF 48%. No endocardial vegetations. Metoprolol tartrate 100mg PO BID Lisinopril 20mg PO daily Lasix 40mg PO BID 6. Hypertensive urgency: Nitroglycerin drip being switched off earlier this morning Metoprolol tartrate 100mg PO BID Lisinopril 20mg PO daily Lasix 40mg PO BID 7. Hypokalemia/Hypomagnesemia: Repeat MgSO4 IV once today Repeat serum Mg level daily and repeat replacement as needed Also check CMP daily to trend serum potassium level and replace as needed 8. Aspiration pneumonia: Currently on room air Blood culture no growth to date Sputum culture no growth to date Rocephin Zithromax Tylenol PRN fever 9. Brain lesion suspecting meningioma: Calcified extra axial mass in the right frontal region measuring 3.9X3.3X3.1cm with mild associated vasogenic edema. No transfalcine or uncal herniation Talked to neurosurgeon Dr. Munoz from [facility]-->Most likely slow growing, okay to follow up in outpatient setting in a few months. Will make him a referral. No need to start steroid for adj. vasogenic edema either since it is very mild. GI ppx: Protonix DVT ppx: Lovenox Code status: Full Prognosis: Guarded Disposition: inpatient ICU telemetry Critical Care Time: 1hr Time Spent With Patient Time: Total time spent is greater than 50% in coordination of care (as documented) at patient's floor/unit and/or counseling patient: Total time spent with greater than 50% in coordination of care (as documented) at patient's floor/unit and/or counseling patient:: Greater than 35 minutes
[2021-02-03] MEDS: FUROSEMIDE 40 MG/4 ML VIAL IV SCH (09:56)
[2021-02-03] MEDS: NICOTINE 21 MG PATCH TOPICAL SCH (09:59)
[2021-02-03] MEDS: AZITHROMYCIN 500 MG in DEXTROSE 5% IN WATER 250 ML IV SCH (10:00)
[2021-02-03] MEDS ORDERED: MAGNESIUM SULFATE 8.12 MEQ in DEXTROSE 5% IN WATER 50 ML IV ONE (10:00)
[2021-02-03] MEDS ORDERED: LORazepam 1 MG TABLET PO PRN (15:32)
[2021-02-03] MEDS ORDERED: LORazepam 2 MG/ML ORAL.SOL PO ONE (15:38)
[2021-02-03] MEDS ORDERED: FUROSEMIDE 40 MG TABLET PO SCH (16:00)
[2021-02-03] MEDS: POTASSIUM CHLORIDE 20 MEQ TABLET PO SCH (17:06)
[2021-02-03] MEDS: LORazepam 2 MG/ML VIAL IV PRN ×2 (19:28→21:30)
[2021-02-03] MEDS: ACETAMINOPHEN 325 MG TABLET PO PRN (20:49)
[2021-02-03] MEDS: HALOPERIDOL LACTATE 5 MG/ML VIAL IM PRN (22:55)
[2021-02-04] MEDS: LORazepam 2 MG/ML VIAL IV PRN (00:03)
[2021-02-04] MEDS: 0.9 % SODIUM CHLORIDE 10 ML SYRINGE IV SCH ×3 (05:56→22:00)
[2021-02-04] MEDS: DEXMEDETOMIDINE 400 MCG in PREMIX 1 BAG IV SCH (05:57)
[2021-02-04] MEDS: 0.9 % SODIUM CHLORIDE 250 ML IV SCH ×6 (05:58→23:25)
[2021-02-04] MEDS: PANTOPRAZOLE 40 MG VIAL IV SCH (07:14)
[2021-02-04 07:45] LABS: Basophils # (Auto) 0.06 K/mcL (0.00-0.30); Basophils % (Auto) 0.2 % (0.0-2.0); Eosinophils # (Auto) 0.14 K/mcL (0.00-0.70); Eosinophils % (Auto) 0.5 % (0.0-7.0); Hematocrit 41.8 % (40.1-51.0); Hemoglobin 14.8 g/dL (13.7-17.5); Lymphocytes # (Auto) 22.62 K/mcL (1.50-4.80); Mean Cell Volume 99.8 fL (80.0-100.0); Mean Corpuscular HGB Conc 35.4 g/dL (31.0-36.0); Mean Platelet Volume 11.3 fL (7.4-10.4); Monocytes # (Auto) 1.56 K/mcL (0.10-0.90); Monocytes % (Auto) 5.7 % (1.0-12.0); Neutrophils % (Auto) 11.5 % (38.0-78.0); Platelet Count 110 K/mcL (140-440); RBC 4.19 M/mcL (4.63-6.08); Red Cell Distribution Width 13.5 % (11.5-14.5); WBC 27.6 K/mcL (4.5-11.0)
[2021-02-04 07:47] LABS: Phosphorous 3.7 mg/dL (2.5-4.5)
[2021-02-04 07:49] LABS: ALT/SGPT 48 U/L (<40); AST/SGOT 56 U/L (<40); Albumin 3.2 gm/dL (3.2-5.2); Albumin/Globulin Ratio 1.2 (1.0-2.3); Alkaline Phosphatase 83 U/L (39-117); Bilirubin,Total 0.9 mg/dL (0.1-1.0); Blood Urea Nitrogen 9 mg/dL (6-20); Calcium 8.4 mg/dL (8.6-10.4); Carbon Dioxide 22 mmol/L (22-30); Chloride 102 mmol/L (96-108); Globulin 2.6 gm/dL (2.2-3.7); Glomerular Filtration Rate 98; Glucose 88 mg/dL (70-105)
[2021-02-04] MEDS: cefTRIAXone 1 GM VIAL IV SCH (08:12)
[2021-02-04] MEDS: DOCUSATE SODIUM 100 MG CAPSULE PO SCH ×3 (08:12→19:43)
[2021-02-04] MEDS: METOPROLOL TARTRATE 50 MG TABLET PO SCH ×3 (08:12→19:30)
[2021-02-04] MEDS: POTASSIUM CHLORIDE 20 MEQ TABLET PO SCH (08:12)
[2021-02-04] MEDS: MULTIVIT,THER IRON,CA,FA & MIN 1 TABLET PO SCH (08:12)
[2021-02-04] MEDS: LISINOPRIL 20 MG TABLET PO SCH (08:13)
--- NOTE | 2021-02-04 08:49 | Internal Med Progress Note ---
SUBJECTIVE Subjective Patient information: Note initiated : 02/04/21 at 8:46 am Service Date, if different from initiated Date: [] Patient: Abram Chinchilla a 60 y/o M admitted on 01/29/21 for alcohol withdrawal, treatment options. Chief Complaint: [] Interval history: History of present illness: Mr. Chinchilla is a 60 year old M chronic alcoholism for decades, referred by outside clinic for alcohol withdrawal assistance. Patient has been drinking 1 to 1.5 L of vodka per per day with last drink 1 hour prior to arriving our ED. Not much medical history could otherwise be obtained due to clinical circumstances. Labs significant for leukocytosis with WBC 47.1, with lymphocyte predominance. Serum alcohol level 0.433. Urine drug screen pending. 01/30: CIWA score 10-12 overnight, 10 this morning. 01/31: CIWA score as high as 29 last evening, currently at 12. No seizures. c/o visual hallucinations. Denies auditory hallucination. Denies anxiety. Denies agitation. Denies insomnia. Denies nausea or vomiting. Denies muscle cramps. 02/01: Still on Precedex drip. [place] score of 4 this morning. No seizure. Patient not verbal. No subjective could be obtained. 02/02: CIWA score of 15. Still on Precedex drip. Still on Nitroglycerin drip. Patient yelling to leave AMA from time to time. No self harm behaviors. 02/03: CIWA score of 12 this morning. Still on Precedex drip. Nitroglycerin drip was switched off earlier this morning. No more attempt of leaving. c/o visual hallucinations. Denies auditory hallucinations. Denies nausea or vomiting. Denies agitation or anxiety. Denies insomnia. Denies increased hand tremors. 02/04: CIWA score of 6 this morning. Precedex drip was off. Nitroglycerin drip was switched off. No more attempt of leaving. Denies visual hallucinations. Denies auditory hallucinations. Denies nausea or vomiting. c/o anxiety and agitation. Denies increased hand tremors. Constitutional Vitals: Vital Signs Temp Pulse Resp BP Pulse Ox 37.1 C 102 H 29 H 134/95 97 02/04/21 08:00 02/04/21 07:26 02/04/21 08:00 02/04/21 08:00 02/04/21 08:00 Period Temp Pulse Resp BP Sys/Johnson Pulse Ox Last 24 Hr 36.7 C-37.7 C 102-115 5-38 86-143/58-122 90-100 Intake and Output 02/03/21 02/04/21 02/04/21 21:59 05:59 13:59 Intake Total 1959 1275 240 Output Total 1930 1725 150 Balance 29 -450 90 Weight 98.021 kg Intake & Output: Intake & Output 02/03/21 02/04/21 02/04/21 21:59 05:59 13:59 Intake Total 1959 1275 240 Output Total 1930 1725 150 Balance 29 -450 90 Weight 98.021 kg Intake: IV 1000 Sodium Chloride 0.9% 1,000 ml @ 1000 100 mls/hr IV .Q10H [facility] Rx#: [id number] Oral 960 1275 240 Output: Urine Catheter Amount 1930 1725 150 Other: Meal snack Breakfast Percent of Meal Consumed 100% 100% Urine Appearance Mucous Threads Clear Cloudy Urine Color Dark Yellow Pale [place] Urine Odor Normal Normal Stool Size Large Large Large Stool Color Brown Brown Brown Green Stool Consistency Liquid Loose Loose Loose # Voids 1 # Bowel Movements 1 1 General appearance: cooperative, disheveled and no acute distress Head Head exam: Present atraumatic and normal inspection Eye Eye exam: Present normal appearance ENT ENT exam: Present mucous membranes moist, normal exam and normal external ear exam Neck Neck exam: Present normal inspection Respiratory Respiratory exam: Present normal respiratory exam and rhonchi; Absent wheezes Cardiovascular Cardiovascular exam: Present irregular rhythm and tachycardia GI/Abdominal GI/Abdominal exam: Present normal bowel sounds Back Exam Back exam: Present normal inspection Neurological Exam Neurological exam: Present alert and oriented X3 Skin Skin exam: Present intact and warm OBJ DATA Labs CBC & Chem 7: 02/04/21 05:43 02/04/21 05:43 Labs: Abnormal Lab Results 02/04/21 02/04/21 02/03/21 05:43 05:43 05:39 WBC 27.6 H 28.2 H RBC 4.19 L 4.27 L Hgb Hct MCV MCH 35.3 H 35.4 H MCHC 36.2 H Plt Count 110 L 74 L MPV 11.3 H 11.8 H Neut % (Auto) 11.5 L 12.4 L Lymph % (Auto) 82.1 H 82.5 H Lymph # (Auto) 22.62 H 23.28 H [place] # (Auto) 1.56 H 1.27 H Sodium Potassium Carbon Dioxide Glucose Calcium 8.4 L Magnesium Total Bilirubin AST 56 H ALT 48 H Total Protein 5.8 L Albumin Globulin 02/03/21 02/02/21 02/02/21 05:38 05:57 05:51 WBC RBC Hgb Hct MCV MCH MCHC Plt Count MPV Neut % (Auto) Lymph % (Auto) Lymph # (Auto) [place] # (Auto) Sodium 132 L Potassium Carbon Dioxide 21 L Glucose 114 H 116 H Calcium 8.3 L 8.0 L Magnesium 1.4 L Total Bilirubin 1.4 H 1.6 H AST 59 H 64 H ALT 53 H 54 H Total Protein 5.8 L 5.1 L Albumin 3.0 L Globulin 2.1 L 02/02/21 02/01/21 05:51 08:39 WBC 29.9 H RBC 3.68 L Hgb 12.8 L Hct 37.2 L MCV 101.1 H MCH 34.8 H MCHC Plt Count 58 L MPV 11.8 H Neut % (Auto) 15.4 L Lymph % (Auto) 79.1 H Lymph # (Auto) 23.65 H [place] # (Auto) 1.43 H Sodium 131 L Potassium 5.6 H Carbon Dioxide Glucose 131 H Calcium 8.2 L Magnesium Total Bilirubin 2.1 H AST 113 H ALT 78 H Total Protein 5.5 L Albumin Globulin 2.1 L Meds: Medications Acetaminophen (Acetaminophen 325 Mg Tablet) 650 mg PO Q6HP PRN; Protocol PRN Reason: Per Pain Protocol/Fever > 101 Last Admin: 02/03/21 20:49 Dose: 650 mg Documented by: Albuterol/Ipratropium (Ipratropium/Albuterol 3 Ml Ampul.Neb) 3 ml NEB Q4HRT PRN PRN Reason: Wheezing Ceftriaxone Sodium (Ceftriaxone 1 Gm Vial) 1 gm IV DAILY ERIKA; Protocol Last Admin: 02/04/21 08:12 Dose: 1 gm Documented by: Clonidine HCl (Clonidine Tts 1 1 Patch Patch) 1 patch TD Q7D [facility] Docusate Sodium (Docusate Sodium 100 Mg Capsule) 100 mg PO BID [facility] Last Admin: 02/04/21 08:12 Dose: Not Given Documented by: Haloperidol Lactate (Haloperidol Lactate 5 Mg/Ml Vial) 2 mg IM Q4HP PRN PRN Reason: ANXIETY/SEDATION Last Admin: 02/03/21 22:55 Dose: 2 mg Documented by: Hydralazine HCl (Hydralazine 20 Mg/Ml Vial) 10 mg IV Q4-6HP PRN PRN Reason: Hypertension Last Admin: 02/03/21 07:17 Dose: 10 mg Documented by: Hydroxyzine HCl (Hydroxyzine 25 Mg Tablet) 0 mg PO Q4HP PRN PRN Reason: Anxiety/Agitation Last Admin: 02/03/21 23:00 Dose: 50 mg Documented by: Dexmedetomidine HCl 400 mcg/ (Premix) 100 mls @ 4.903 mls/hr IV .[id number] [facility]; Protocol Last Admin: 02/04/21 05:57 Dose: Not Given Documented by: Sodium Chloride (Sodium Chloride 0.9%) 250 mls @ 20 mls/hr IV .[id number] [facility] Last Admin: 02/04/21 05:58 Dose: Not Given Documented by: Sodium Chloride (Sodium Chloride 0.9%) 250 mls @ 20 mls/hr IV .[id number] [facility] Last Admin: 02/04/21 05:58 Dose: Not Given Documented by: Acetaminophen (Ofirmev) 650 mg in 65 mls @ 130 mls/hr IV Q6HP PRN; Protocol PRN Reason: PAIN/FEVER > 101 Iron Carb/Multivit/[place]id [place]/Folic Acid (Multivit,Ther Iron,Ca,Fa & Min 1 Tablet) 1 tab PO DAILY [facility] Last Admin: 02/04/21 08:12 Dose: 1 tab Documented by: Lactulose (Lactulose 20 Gm/30 Ml Oral.Graciela) 10 gm PO DAILYP PRN PRN Reason: Constipation Lisinopril (Lisinopril 20 Mg Tablet) 20 mg PO DAILY [facility] Last Admin: 02/04/21 08:13 Dose: 20 mg Documented by: Lorazepam (Lorazepam 2 Mg/Ml Vial) 2 mg IV Q2HP PRN PRN Reason: Alcohol Withdrawal Last Admin: 02/04/21 00:03 Dose: 2 mg Documented by: Lorazepam (Lorazepam 1 Mg Tablet) 2 mg PO Q2HP PRN PRN Reason: CIWA-A >6 or HR >100 Last Admin: 02/04/21 08:21 Dose: 2 mg Documented by: Metoprolol Tartrate (Metoprolol Tartrate 50 Mg Tablet) 100 mg PO BID [facility] Last Admin: 02/04/21 08:12 Dose: 100 mg Documented by: Metoprolol Tartrate (Metoprolol Tartrate 5 Mg/5 Ml Vial) 5 mg IV Q1HP PRN PRN Reason: Blood Pressure Last Admin: 02/01/21 12:00 Dose: 5 mg Documented by: Nicotine (Nicotine 21 Mg Patch) 21 mg TOPICAL DAILY@1000 [facility] Last Admin: 02/03/21 09:59 Dose: 21 mg Documented by: Ondansetron HCl (Ondansetron 4 Mg/2 Ml Vial) 4 mg IV Q4HP PRN; Protocol PRN Reason: Nausea And Vomiting Last Admin: 02/03/21 09:32 Dose: 4 mg Documented by: Pantoprazole Sodium (Pantoprazole 40 Mg Vial) 40 mg IV QAMAC [facility] Last Admin: 02/04/21 07:14 Dose: 40 mg Documented by: Potassium Chloride (Potassium Chloride 20 Meq Tablet) 20 meq PO BIDCC [facility] Last Admin: 02/04/21 08:12 Dose: 20 meq Documented by: Senna (Sennosides 1 Tablet) 2 tab PO HSP PRN PRN Reason: Constipation Sodium Chloride (0.9 % Sodium Chloride 10 Ml Syringe) 10 ml IV Q8 [facility] Last Admin: 02/04/21 05:56 Dose: 10 ml Documented by: A/P Assessment and plan (1) Alcohol withdrawal delirium: Status: Acute (2) Leukocytosis: Status: Acute (3) Alcoholic hepatitis: Status: Acute (4) Atrial fibrillation with RVR: Status: Acute (5) Systolic CHF, chronic: Status: Acute (6) Hypomagnesemia: Status: Acute (7) Meningioma: Status: Acute (8) Hypertensive urgency: Status: Acute (9) Aspiration pneumonia: Status: Acute (10) Hypokalemia: Status: Acute Narrative A/P Narrative: Assessment and Plans: 1. 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 Atrial fibrillation: Unknown chronicity [id number] score of 0, no indication for anticoagulation therapy at this point Metoprolol tartrate 100mg PO BID Lopressor IV PRN HR>120 bpm 2D echocardiogram, atrial fibrillation with LVEF 48%. No endocardial vegetations. 3. 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 Lymphocytosis: Peripheral smear-->marked lymphocytosis, mature and small. Worrisome for CLL/SLL. Will consider hematology referral cbc w/ auto diff in the morning to trend WBC and lymphocyte count-->WBC count and lymphocyte % falling 5. Chronic systolic CHF: 2D echocardiogram, atrial fibrillation with LVEF 48%. No endocardial vegetations. Metoprolol tartrate 100mg PO BID Lisinopril 20mg PO daily Lasix 40mg PO BID 6. Hypertensive urgency: Nitroglycerin drip being switched off earlier this morning Metoprolol tartrate 100mg PO BID Lisinopril 20mg PO daily Lasix 40mg PO BID 7. Hypokalemia/Hypomagnesemia: RESOLVED Repeat serum Mg level daily and repeat replacement as needed Also check CMP daily to trend serum potassium level and replace as needed 8. Aspiration pneumonia: Currently on room air Blood culture no growth to date Sputum culture no growth to date Rocephin Zithromax Tylenol PRN fever 9. Brain lesion suspecting meningioma: Calcified extra axial mass in the right frontal region measuring 3.9X3.3X3.1cm with mild associated vasogenic edema. No transfalcine or uncal herniation Talked to neurosurgeon Dr. Munoz from [facility]-->Most likely slow growing, okay to follow up in outpatient setting in a few months. Will make him a referral. No need to start steroid for adj. vasogenic edema either since it is very mild. GI ppx: Protonix DVT ppx: Lovenox Code status: Full Prognosis: Guarded Disposition: inpatient med surg telemetry Time Spent With Patient Time: Total time spent is greater than 50% in coordination of care (as documented) at patient's floor/unit and/or counseling patient: Total time spent with greater than 50% in coordination of care (as documented) at patient's floor/unit and/or counseling patient:: Greater than 35 minutes
[2021-02-04] MEDS ORDERED: SENNOSIDES 1 TABLET PO PRN (08:58)
[2021-02-04] MEDS ORDERED: METOPROLOL TARTRATE 5 MG/5 ML VIAL IV PRN (08:58)
[2021-02-04] MEDS ORDERED: IPRATROPIUM/ALBUTEROL 3 ML AMPUL.NEB NEB PRN (08:58)
[2021-02-04] MEDS ORDERED: ACETAMINOPHEN 325 MG TABLET PO PRN ×2 (08:58)
[2021-02-04] MEDS ORDERED: hydrALAZINE 20 MG/ML VIAL IV PRN (08:58)
[2021-02-04] MEDS ORDERED: LORazepam 2 MG/ML VIAL IV PRN (08:58)
[2021-02-04] MEDS ORDERED: DEXMEDETOMIDINE 400 MCG in PREMIX 1 BAG IV PRN (08:58)
[2021-02-04] MEDS ORDERED: ONDANSETRON 4 MG/2 ML VIAL IV PRN (08:58)
[2021-02-04] MEDS ORDERED: LACTULOSE 20 GM/30 ML ORAL.SOL PO PRN (08:58)
[2021-02-04] MEDS ORDERED: MULTIVIT,THER IRON,CA,FA & MIN 1 TABLET PO SCH (09:00)
[2021-02-04] MEDS ORDERED: LISINOPRIL 20 MG TABLET PO SCH (09:00)
[2021-02-04] MEDS ORDERED: cefTRIAXone 1 GM VIAL IV SCH (09:00)
[2021-02-04] MEDS ORDERED: NICOTINE 21 MG PATCH TOPICAL SCH (10:00)
[2021-02-04 10:14] LABS: PSA W/Reflex Free PSA If Ind. 2.49 ng/mL (0.00-3.50)
[2021-02-04] MEDS: LORazepam 1 MG TABLET PO PRN ×4 (11:23→23:38)
--- NOTE | 2021-02-04 12:12 | Internal Med Progress Note ---
SUBJECTIVE Subjective Patient information: Note initiated : 02/04/21 at 12:06 pm Service Date, if different from initiated Date: [] Patient: Abram Chinchilla a 60 y/o M admitted on 01/29/21 for alcohol withdrawal, treatment options. Chief Complaint: [] Interval history: History of present illness: Mr. Chinchilla is a 60 year old M chronic alcoholism for decades, referred by outside clinic for alcohol withdrawal assistance. Patient has been drinking 1 to 1.5 L of vodka per per day with last drink 1 hour prior to arriving our ED. Not much medical history could otherwise be obtained due to clinical circumstances. Labs significant for leukocytosis with WBC 47.1, with lymphocyte predominance. Serum alcohol level 0.433. Urine drug screen pending. 01/30: CIWA score 10-12 overnight, 10 this morning. 01/31: CIWA score as high as 29 last evening, currently at 12. No seizures. c/o visual hallucinations. Denies auditory hallucination. Denies anxiety. Denies agitation. Denies insomnia. Denies nausea or vomiting. Denies muscle cramps. 02/01: Still on Precedex drip. [place] score of 4 this morning. No seizure. Patient not verbal. No subjective could be obtained. 02/02: CIWA score of 15. Still on Precedex drip. Still on Nitroglycerin drip. Patient yelling to leave AMA from time to time. No self harm behaviors. 02/03: CIWA score of 12 this morning. Still on Precedex drip. Nitroglycerin drip was switched off earlier this morning. No more attempt of leaving. c/o visual hallucinations. Denies auditory hallucinations. Denies nausea or vomiting. Denies agitation or anxiety. Denies insomnia. Denies increased hand tremors. 02/04: CIWA score of 6 this morning. Precedex drip was off. Nitroglycerin drip was switched off. No more attempt of leaving. Denies visual hallucinations. Denies auditory hallucinations. Denies nausea or vomiting. c/o anxiety and agitation. Denies increased hand tremors. 02/05 Constitutional Vitals: Vital Signs Temp Pulse Resp BP Pulse Ox 99.0 F 102 H 20 141/94 98 02/04/21 12:00 02/04/21 07:26 02/04/21 09:00 02/04/21 11:32 02/04/21 12:00 Period Temp Pulse Resp BP Sys/Johnson Pulse Ox Last 24 Hr 98.3 F-99.9 F 102-115 5-38 99-143/64-122 90-100 Intake and Output 02/03/21 02/04/21 02/04/21 21:59 05:59 13:59 Intake Total 1959 1275 720 Output Total 193 1725 870 Balance 29 -450 -150 Weight 98.021 kg Intake & Output: Intake & Output 02/03/21 02/04/21 02/04/21 21:59 05:59 13:59 Intake Total 1959 1275 720 Output Total 1930 1725 870 Balance 29 -450 -150 Weight 98.021 kg Intake: IV 1000 Sodium Chloride 0.9% 1,000 ml @ 1000 100 mls/hr IV .Q10H [facility] Rx#: [id number] Oral 960 1275 720 Output: Urine Catheter Amount 1930 1725 820 Void Amount 50 Other: Meal snack Breakfast Percent of Meal Consumed 100% 100% Urine Appearance Mucous Threads Clear Clear Uretheral (Dial) Clear Urine Color Dark Yellow Pale Pale Uretheral (Dial) Pale Urine Odor Normal Normal Stool Size Large Large Large Stool Color Brown Brown Brown Green Stool Consistency Liquid Loose Loose Loose # Voids 1 # Bowel Movements 1 1 Exam: General: Alert, Awake, No acute Distress Eyes/N/T: EOMI, Head/Neck: neck supple, CV: RRR, No murmurs, Pulm: Clear b/l, no wheezing/rhonchi/rales Abd: soft, nontender, +BS x4 Ext: no clubbing/cyanosis/edema Neuro: Alert, no focal deficits, moves all extremities, Skin: warm/dry OBJ DATA Labs CBC & Chem 7: 02/04/21 05:43 02/04/21 05:43 Labs: Abnormal Lab Results 02/04/21 02/04/21 02/03/21 05:43 05:43 05:39 WBC 27.6 H 28.2 H RBC 4.19 L 4.27 L Hgb Hct MCV MCH 35.3 H 35.4 H MCHC 36.2 H Plt Count 110 L 74 L MPV 11.3 H 11.8 H Neut % (Auto) 11.5 L 12.4 L Lymph % (Auto) 82.1 H 82.5 H Lymph # (Auto) 22.62 H 23.28 H [place] # (Auto) 1.56 H 1.27 H Sodium Carbon Dioxide Glucose Calcium 8.4 L Magnesium Total Bilirubin AST 56 H ALT 48 H Total Protein 5.8 L Albumin Globulin 02/03/21 02/02/21 02/02/21 05:38 05:57 05:51 WBC RBC Hgb Hct MCV MCH MCHC Plt Count MPV Neut % (Auto) Lymph % (Auto) Lymph # (Auto) [place] # (Auto) Sodium 132 L Carbon Dioxide 21 L Glucose 114 H 116 H Calcium 8.3 L 8.0 L Magnesium 1.4 L Total Bilirubin 1.4 H 1.6 H AST 59 H 64 H ALT 53 H 54 H Total Protein 5.8 L 5.1 L Albumin 3.0 L Globulin 2.1 L 02/02/21 05:51 WBC 29.9 H RBC 3.68 L Hgb 12.8 L Hct 37.2 L MCV 101.1 H MCH 34.8 H MCHC Plt Count 58 L MPV 11.8 H Neut % (Auto) 15.4 L Lymph % (Auto) 79.1 H Lymph # (Auto) 23.65 H [place] # (Auto) 1.43 H Sodium Carbon Dioxide Glucose Calcium Magnesium Total Bilirubin AST ALT Total Protein Albumin Globulin Meds: Medications Acetaminophen (Acetaminophen 325 Mg Tablet) 650 mg PO Q6HP PRN; Protocol PRN Reason: Per Pain Protocol/Fever > 101 Acetaminophen (Acetaminophen 325 Mg Tablet) 650 mg PO Q4-6HP PRN; Protocol PRN Reason: Per Pain Protocol Albuterol/Ipratropium (Ipratropium/Albuterol 3 Ml Ampul.Neb) 3 ml NEB Q4HRT PRN PRN Reason: Wheezing Ceftriaxone Sodium (Ceftriaxone 1 Gm Vial) 1 gm IV DAILY ERIKA; Protocol Last Admin: 02/04/21 09:08 Dose: Not Given Documented by: Clonidine HCl (Clonidine Tts 1 1 Patch Patch) 1 patch TD Q7D [facility] Docusate Sodium (Docusate Sodium 100 Mg Capsule) 100 mg PO BID [facility] Last Admin: 02/04/21 09:06 Dose: Not Given Documented by: Furosemide (Furosemide 40 Mg Tablet) 40 mg PO BIDD [facility] Haloperidol Lactate (Haloperidol Lactate 5 Mg/Ml Vial) 2 mg IM Q4HP PRN PRN Reason: ANXIETY/SEDATION Hydralazine HCl (Hydralazine 20 Mg/Ml Vial) 10 mg IV Q4-6HP PRN PRN Reason: Hypertension Hydroxyzine HCl (Hydroxyzine 25 Mg Tablet) 0 mg PO Q4HP PRN PRN Reason: Anxiety/Agitation Sodium Chloride (Sodium Chloride 0.9%) 250 mls @ 20 mls/hr IV .[id number] [facility] Last Admin: 02/04/21 09:06 Dose: Not Given Documented by: Sodium Chloride (Sodium Chloride 0.9%) 250 mls @ 20 mls/hr IV .[id number] [facility] Last Admin: 02/04/21 09:06 Dose: Not Given Documented by: Dexmedetomidine HCl 400 mcg/ (Premix) 100 mls @ 4.901 mls/hr IV .[id number] PRN; Protocol PRN Reason: Sedation Iron Carb/Multivit/[place]/Folic Acid (Multivit,Ther Iron,Ca,Fa & Min 1 Tablet) 1 tab PO DAILY [facility] Last Admin: 02/04/21 09:08 Dose: Not Given Documented by: Lactulose (Lactulose 20 Gm/30 Ml Oral.Graciela) 10 gm PO DAILYP PRN PRN Reason: Constipation Lisinopril (Lisinopril 20 Mg Tablet) 20 mg PO DAILY [facility] Last Admin: 02/04/21 09:08 Dose: Not Given Documented by: Lorazepam (Lorazepam 2 Mg/Ml Vial) 2 mg IV Q2HP PRN PRN Reason: Alcohol Withdrawal Lorazepam (Lorazepam 1 Mg Tablet) 2 mg PO Q2HP PRN PRN Reason: CIWA-A >6 or HR >100 Last Admin: 02/04/21 11:23 Dose: 2 mg Documented by: Metoprolol Tartrate (Metoprolol Tartrate 50 Mg Tablet) 100 mg PO BID [facility] Last Admin: 02/04/21 09:07 Dose: Not Given Documented by: Metoprolol Tartrate (Metoprolol Tartrate 5 Mg/5 Ml Vial) 5 mg IV Q1HP PRN PRN Reason: Blood Pressure Nicotine (Nicotine 21 Mg Patch) 21 mg TOPICAL DAILY@1000 [facility] Last Admin: 02/04/21 10:02 Dose: 21 mg Documented by: Ondansetron HCl (Ondansetron 4 Mg/2 Ml Vial) 4 mg IV Q4HP PRN; Protocol PRN Reason: Nausea And Vomiting Pantoprazole Sodium (Pantoprazole 40 Mg Vial) 40 mg IV QAMAC [facility] Potassium Chloride (Potassium Chloride 20 Meq Tablet) 20 meq PO BIDCC [facility] Senna (Sennosides 1 Tablet) 2 tab PO HSP PRN PRN Reason: Constipation Sodium Chloride (0.9 % Sodium Chloride 10 Ml Syringe) 10 ml IV Q8 [facility] A/P Narrative A/P Narrative: A: *ETOH w/d with Delirium Tremens: * Atrial fibrillation: Unknown chronicity -[id number] score of 0, no indication for anticoagulation therapy at this point -2D echocardiogram LVEF 48%. No endocardial vegetations. *Alcoholic hepatitis: -Limited abdominal US to look for cirrhosis--> no signs of cirrhosis or liver lesion *Lymphocytosis: -Peripheral smear-->marked lymphocytosis, mature and small. Worrisome for CLL/SLL. -Will consider hematology referral *Chronic systolic CHF(48%): -on BB/ACEI/Lasix *Hypertensive urgency: resolved *Hypokalemia/Hypomagnesemia: RESOLVED *Aspiration pneumonia: -Currently on room air -Blood culture no growth to date, Sputum culture no growth to date * Brain lesion suspecting meningioma: -Calcified extra axial mass right frontal region, 3.9x3.3x3.1cm w/mild vasogenic edema. No transfalcine or uncal herniation -Talked to neurosurgeon Dr. Munoz from [facility]-->Most likely slow growing, okay to follow up in outpatient setting in a few months. Will make him a referral. No need to start steroid for adj. vasogenic edema either since it is very mild. 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
--- NOTE | 2021-02-04 12:15 | Discharge Summary ---
Discharge Provider Provider Patient information: Note initiated : 02/04/21 at 12:12 pm Service Date, if different from initiated Date: [] Patient: Abram Chinchilla 60 y/o M admitted on 01/29/21 for alcohol withdrawal, treatment options. Chief Complaint: [] Date of admission: 01/29/21 14:53 Discharge date: 02/05/21 Primary care physician: PCP No Consults: 01/29/21 Consult to Physician [CONS] Stat Comment: Consulting Provider: Kal Concepcion Reason For Exam: Physician to Consult Discharge Meds Discharge Medications Home Medications furosemide 40 mg tablet 40 mg PO DAILY #30 tab 02/04/21 [Rx Last Taken Unknown] lisinopril 20 mg tablet 20 mg PO DAILY #30 tab 02/04/21 [Rx Last Taken Unknown] metoprolol tartrate 50 mg tablet 100 mg PO BID #60 tab 02/04/21 [Rx Last Taken Unknown] COURSE Hospital Course Hospital course: Interval history: History of present illness: Mr. Chinchilla is a 60 year old M chronic alcoholism for decades, referred by outside clinic for alcohol withdrawal assistance. Patient has been drinking 1 to 1.5 L of vodka per per day with last drink 1 hour prior to arriving our ED. Not much medical history could otherwise be obtained due to clinical circumstances. Labs significant for leukocytosis with WBC 47.1, with lymphocyte predominance. Serum alcohol level 0.433. Urine drug screen pending. 01/30: CIWA score 10-12 overnight, 10 this morning. 01/31: CIWA score as high as 29 last evening, currently at 12. No seizures. c/o visual hallucinations. Denies auditory hallucination. Denies anxiety. Denies agitation. Denies insomnia. Denies nausea or vomiting. Denies muscle cramps. 02/01: Still on Precedex drip. Anyi score of 4 this morning. No seizure. Patient not verbal. No subjective could be obtained. 02/02: CIWA score of 15. Still on Precedex drip. Still on Nitroglycerin drip. Patient yelling to leave AMA from time to time. No self harm behaviors. 02/03: CIWA score of 12 this morning. Still on Precedex drip. Nitroglycerin drip was switched off earlier this morning. No more attempt of leaving. c/o visual hallucinations. Denies auditory hallucinations. Denies nausea or vomiting. D enies agitation or anxiety. Denies insomnia. Denies increased hand tremors. 02/04: CIWA score of 6 this morning. Precedex drip was off. Nitroglycerin drip was switched off. No more attempt of leaving. Denies visual hallucinations. Denies auditory hallucinations. Denies nausea or vomiting. c/o anxiety and agitation. Denies increased hand tremors. 02/05 Patient left AMA earlier this morning. High risk for admission given alcohol abuse and comorbidities A/P Narrative: A: *ETOH w/d with Delirium Tremens: * Atrial fibrillation: Unknown chronicity -[id number] score of 0, no indication for anticoagulation therapy at this point -2D echocardiogram LVEF 48%. No endocardial vegetations. *Alcoholic hepatitis: -Limited abdominal US to look for cirrhosis--> no signs of cirrhosis or liver lesion *Lymphocytosis: -Peripheral smear-->marked lymphocytosis, mature and small. Worrisome for CLL/SLL. -hematology referral *Chronic systolic CHF(48%): -on BB/ACEI/Lasix *Hypertensive urgency: resolved *Hypokalemia/Hypomagnesemia: RESOLVED *Aspiration pneumonia: -Currently on room air -Blood culture no growth to date, Sputum culture no growth to date * Brain lesion suspecting meningioma: -Calcified extra axial mass right frontal region, 3.9x3.3x3.1cm w/mild vasogenic edema. No transfalcine or uncal herniation -Talked to neurosurgeon Dr. Munoz from [facility]-->Most likely slow growing, okay to follow up in outpatient setting in a few months. Will make him a referral. No need to start steroid for adj. vasogenic edema either since it is very mild. Discharge diagnosis: Alcohol withdrawal and DTs alcoholic hepatitis lymphocytosis meningioma Secondary discharge diagnosis: CHF A. fib hypertensive urgency duration pneumonia electrolyte abnormalities Time Spent with Patient Time attestation: Total time spent providing and/or coordinating discharge services: Time spent: Greater than 30 minutes EXAM Constitutional Vitals: Temp Pulse Resp BP Pulse Ox 99.0 F 102 H 20 141/94 98 02/04/21 12:00 02/04/21 07:26 02/04/21 09:00 02/04/21 11:32 02/04/21 12:00 Discharge Data Data Completed and Pending Labs on day of discharge: Labs from last 24 hours 02/04/21 02/04/21 02/04/21 08:56 05:43 05:43 WBC 27.6 H RBC 4.19 L Hgb 14.8 Hct 41.8 MCV 99.8 MCH 35.3 H MCHC 35.4 RDW 13.5 Plt Count 110 L MPV 11.3 H Neut % (Auto) 11.5 L Lymph % (Auto) 82.1 H [place] % (Auto) 5.7 Eos % (Auto) 0.5 Baso % (Auto) 0.2 Lymph # (Auto) 22.62 H [place] # (Auto) 1.56 H Eos # (Auto) 0.14 Baso # (Auto) 0.06 Absolute Neutrophils 3.17 Sodium 139 Potassium 3.5 Chloride 102 Carbon Dioxide 22 Anion Gap 15.0 BUN 9 Creatinine 0.8 GFR Calculation 98 Glucose 88 Calcium 8.4 L Phosphorus Magnesium Total Bilirubin 0.9 AST 56 H ALT 48 H Alkaline Phosphatase 83 Total Protein 5.8 L Albumin 3.2 Globulin 2.6 Albumin/Globulin Ratio 1.2 Prostate Specific Ag 2.49 02/04/21 05:42 WBC RBC Hgb Hct MCV MCH MCHC RDW Plt Count MPV Neut % (Auto) Lymph % (Auto) [place] % (Auto) Eos % (Auto) Baso % (Auto) Lymph # (Auto) [place] # (Auto) Eos # (Auto) Baso # (Auto) Absolute Neutrophils Sodium Potassium Chloride Carbon Dioxide Anion Gap BUN Creatinine GFR Calculation Glucose Calcium Phosphorus 3.7 Magnesium 2.0 Total Bilirubin AST ALT Alkaline Phosphatase Total Protein Albumin Globulin Albumin/Globulin Ratio Prostate Specific Ag Preliminary micro results at discharge 02/02/21 15:00 Blood Culture - Preliminary Blood 02/02/21 14:50 Blood Culture - Preliminary Blood Discharge Plan Patient/Caregiver Discharge Instructions Activity: increase activity as tolerated Diet: Cardiac Activity Restrictions/Additional Instructions: Follow-up with PCP in 3 to 7 days. Referral to see hematology/oncology for lymphocytosis concerning for CLL in 5 to 14 days. Follow-up with Dr. Tammy Hayes [facility] neurosurgeon in 2 to 3 months for brain lesion. Prescriptions: New furosemide 40 mg Tablet 40 mg PO DAILY Qty: 30 0RF lisinopril 20 mg Tablet 20 mg PO DAILY Qty: 30 0RF metoprolol tartrate 50 mg Tablet 100 mg PO BID Qty: 60 0RF Follow Up Plan Follow up with: No,PCP [Primary Care Provider] - Patient Disposition: Left Against Medical Advice Prognosis: Undetermined Overall status at discharge: patient is progressing back to baseline Discharge Comment: friend's home
[2021-02-04 14:54] LABS: Lymphocytes % (Auto) 82.1 % (15.5-49.0)
[2021-02-04] MEDS ORDERED: FUROSEMIDE 40 MG TABLET PO SCH ×2 (16:00)
[2021-02-04] MEDS ORDERED: POTASSIUM CHLORIDE 20 MEQ TABLET PO SCH (17:30)
[2021-02-04] MEDS: METOPROLOL TARTRATE 5 MG/5 ML VIAL IV PRN ×3 (19:06→19:58)
[2021-02-04] MEDS: HALOPERIDOL LACTATE 5 MG/ML VIAL IM PRN (19:22)
[2021-02-04] MEDS: hydrOXYzine 25 MG TABLET PO PRN ×2 (19:27→23:38)
[2021-02-05] MEDS: HALOPERIDOL LACTATE 5 MG/ML VIAL IM PRN (04:02)
[2021-02-05 07:18] LABS: ALT/SGPT 55 U/L (<40); AST/SGOT 65 U/L (<40); Albumin 3.9 gm/dL (3.2-5.2); Albumin/Globulin Ratio 1.6 (1.0-2.3); Alkaline Phosphatase 99 U/L (39-117); Bilirubin,Total 0.8 mg/dL (0.1-1.0); Blood Urea Nitrogen 9 mg/dL (6-20); Calcium 9.2 mg/dL (8.6-10.4); Carbon Dioxide 25 mmol/L (22-30); Chloride 101 mmol/L (96-108); Globulin 2.4 gm/dL (2.2-3.7); Glomerular Filtration Rate 98; Glucose 95 mg/dL (70-105)
[2021-02-05] MEDS ORDERED: PANTOPRAZOLE 40 MG VIAL IV SCH (07:30)
[2021-02-08] MEDS ORDERED: cloNIDine TTS 1 1 PATCH PATCH TD SCH ×2 (10:00)
== END 2021-02-05 05:30 | disposition left against medical advice (07) | DRG 894 ==
LOC: ED 10:43 → ICU 14:53
PROVIDERS: ADMIT Internal Medicine; ATTEND Internal Medicine

== ENCOUNTER 2022-01-14 23:26 | Inpatient (IN) ==
[2022-01-14] MEDS ORDERED: LORazepam 2 MG/ML VIAL IV ONE ×2 (23:38→23:41)
[2022-01-14] MEDS ORDERED: 0.9 % SODIUM CHLORIDE 1,000 ML IV ONE (23:41)
[2022-01-14] MEDS ORDERED: FOLIC ACID 1 MG TABLET PO ONE (23:41)
[2022-01-14] MEDS ORDERED: THIAMINE 100 MG/ML VIAL IM ONE (23:41)
[2022-01-14] MEDS ORDERED: ONDANSETRON 4 MG/2 ML VIAL IV ONE (23:41)
[2022-01-14] MEDS ORDERED: PANTOPRAZOLE 40 MG VIAL IV ONE (23:41)
[2022-01-14 23:59] LABS: POC Calcium, Ionized 1.01 (1.16-1.32); POC Creatinine 1.3 (0.6-1.2); POC Potassium 3.4 (3.3-5.1)
[2022-01-15 00:29] LABS: Basophils # (Auto) 0.06 K/mcL (0.00-0.30); Basophils % (Auto) 0.1 % (0.0-2.0); Eosinophils # (Auto) 0.08 K/mcL (0.00-0.70); Eosinophils % (Auto) 0.1 % (0.0-7.0); Hemoglobin 15.7 g/dL (13.7-17.5); Lymphocytes # (Auto) 74.58 K/mcL (1.50-4.80); Lymphocytes % (Auto) 92.7 % (15.5-49.0); Mean Cell Volume 95.2 fL (80.0-100.0); Mean Corpuscular HGB Conc 34.1 g/dL (31.0-36.0); Mean Platelet Volume 9.6 fL (8.8-12.5); Monocytes # (Auto) 1.13 K/mcL (0.10-0.90); Monocytes % (Auto) 1.4 % (1.0-12.0); Neutrophils % (Auto) 5.6 % (38.0-78.0); Platelet Count 113 K/mcL (140-440); RBC 4.83 M/mcL (4.63-6.08); WBC 80.4 K/mcL (4.5-11.0)
[2022-01-15 00:31] LABS: Alcohol,Blood 0.365 gm/dL (<0.010)
[2022-01-15] MEDS ORDERED: LORazepam 2 MG/ML VIAL IV ONE (00:36)
[2022-01-15 00:37] LABS: ALT/SGPT 86 U/L (<40); AST/SGOT 185 U/L (<40); Albumin 4.4 gm/dL (3.2-5.2); Alkaline Phosphatase 151 U/L (39-117); Bilirubin,Direct < 0.2 mg/dL (0-0.3); Bilirubin,Total 0.6 mg/dL (0.1-1.0); Globulin 2.3 gm/dL (2.2-3.7)
[2022-01-15] MEDS ORDERED: 0.9 % SODIUM CHLORIDE 1,000 ML IV ONE (00:39)
[2022-01-15] MEDS ORDERED: METOPROLOL TARTRATE 5 MG/5 ML VIAL IV ONE (01:12)
[2022-01-15] MEDS ORDERED: NALOXONE HCL 0.4 MG/ML VIAL IV PRN (01:31)
[2022-01-15] MEDS ORDERED: ONDANSETRON 4 MG/2 ML VIAL IV PRN ×2 (01:31→08:31)
[2022-01-15] MEDS ORDERED: METOPROLOL TARTRATE 25 MG TABLET PO ONE (01:40)
[2022-01-15] MEDS: LORazepam 2 MG/ML VIAL IV PRN ×5 (03:19→18:07)
--- NOTE | 2022-01-15 05:29 | Emergency Department Note ---
Alcohol HPI General Chief Complaint: Alcohol Stated Complaint: alcohol withdrawl Time Seen by Provider: 01/14/22 23:41 Source: patient Mode of arrival: ambulatory Limitations: no limitations History of Present Illness HPI Narrative: Narrative: 61-year-old male with chronic alcohol dependence drinks about 1.5 L of alcohol a day presents to the ED for alcohol withdrawal. He says his primary issue is "I just do not want to ". He says he is a bit tremulous feels slightly confused and very anxious. He only had a couple beers today which is very minimal for him. Denies any seizure-like activity. Endorses nausea without vomiting. Denies any melena or hematemesis. No cardiorespiratory complaints. He reports some chronic epigastric discomfort unchanged with no new abdominal pain. Denies any other coingestions other than alcohol. Has been admitted before for withdrawal. Upon chart review he was admitted back in January for almost an identical presentation. No other complaints Patient also reports a history of A. fib on metoprolol no anticoagulation because previous [id number] score was 0, also history of CLL not requiring any current treatment. Related Data Home Medications Medication Instructions Recorded Confirmed cholecalciferol (vitamin D3) 125 1 cap PO QDAY 01/15/22 01/15/22 mcg (5,000 unit) capsule escitalopram oxalate 20 mg tablet 1 tab PO QDAY 01/15/22 01/15/22 metoprolol succinate 50 mg 1 tab PO BID 01/15/22 01/15/22 tablet,extended release 24 hr tamsulosin 0.4 mg capsule 1 cap PO QDAY 01/15/22 01/15/22 Allergies Allergy/AdvReac Type Severity Reaction Status Date / Time No Known Drug Allergies Allergy Verified 01/29/21 10:46 Review of Systems ROS ROS Narrative: Narrative: All systems ED: reviewed and negative except as stated. [facility] Narrative Patient History Narrative: Narrative: Medical/Surgical/Family History All Active Problems (Updated 01/15/22 @ 05:29 by Waqar Barnett DO) History of chronic lymphocytic leukemia (Acute) Hypokalemia (Acute) Aspiration pneumonia (Acute) Hypertensive urgency (Acute) Meningioma (Acute) Hypomagnesemia (Acute) Systolic CHF, chronic (Acute) Alcohol withdrawal delirium (Acute) Leukocytosis (Acute) Alcoholic hepatitis (Acute) Atrial fibrillation with RVR (Acute) Social History Smoking Status: Smokeless tobacco Exam Narrative Narrative: Narrative: Constitutional: normally developed, anxious slightly tremulous tachycardic hypertensive Head: Normocephalic, atraumatic, Eyes: No Icterus, ENT: Dry mucus membranes, Neck: Supple, Cardiac: Tachycardic irregular heart sounds, palpable radial pulses, no peripheral edema Pulmonary: Normal respiratory effort. Breath sounds clear, no wheeze, rhonchi, rales, Gastrointestinal: Abdomen soft, non-distended, non-tender, Musculoskeletal: No gross deformities, well perfused Skin: warm, dry Neuro: Alert and oriented, although does seem slightly delirious, no focal deficits moving all 4 extremities, mild hand tremors. General Limitations: no limitations Course Vital Signs Vital signs: Vital Signs Temperature 36.3 C 01/14/22 23:29 Pulse Rate 151 H 01/14/22 23:29 Respiratory Rate 16 01/14/22 23:29 Blood Pressure 153/127 01/14/22 23:29 Pulse Oximetry (%) 99 01/14/22 23:29 Oxygen Delivery Method 01/14/22 23:29 Temperature 36.8 C 01/15/22 02:42 Pulse Rate 126 H 01/15/22 05:00 Respiratory Rate 23 H 01/15/22 05:00 Blood Pressure 118/91 01/15/22 05:00 Pulse Oximetry (%) 94 01/15/22 05:00 Oxygen Delivery Method 01/15/22 02:42 [facility] MDM Narrative Medical decision making narrative: Narrative: Patient presents as above most concerning for acute alcohol withdrawal, work-up is initiated is started on some IV fluids and 2 mg IV Ativan On reevaluation patient actually appears improved following the Ativan. Twelve-lead EKG A. fib with RVR 153 QRS QTC within normal no evidence of acute ischemia CBC shows a leukocytosis of 80 his baseline is somewhere between 20 and 50 given his history of CLL, also likely demargination due to his acute alcohol withdrawal. Really no clinical suspicion or suggestion of acute infection at this time but we did broaden work-up with some blood cultures and a procalcitonin. Do not feel any indication for antibiotics at this time VBG shows lactic acid 2.4 otherwise normal pH Electrolytes show a slight TYE creatinine 1.3 glucose 130s As expected mildly elevated LFTs with a normal bilirubin and AST >ALT Troponin negative procalcitonin normal Ethanol elevated 365 Reevaluation patient still in some RVR gave him a second dose of Ativan for withdrawal and he appears much more comfortable and no longer delirious, did give him some of his metoprolol for his RVR. Much improvement in his heart rate down to about 105 No new complaints I did speak with Dr. Concepcion who accepts admission Critical Care Time Total CriticalCare time was 40 minutes, excluding separately reportable procedures. There was a high probability of clinically significant/life threatening deterioration in the patient's condition which required my urgent intervention. Lab Data Result diagrams: 01/14/22 23:54 Labs: Lab Results 01/14/22 01/14/22 01/14/22 Range/Units 23:54 23:54 23:54 WBC 80.4 H* (4.5-11.0) K/mcL RBC 4.83 (4.63-6.08) M/mcL Hgb 15.7 (13.7-17.5) g/dL Hct 46.0 (40.1-51.0) % POC Hct (41-55) MCV 95.2 (80.0-100.0) fL MCH 32.5 (26.0-34.0) pg MCHC 34.1 (31.0-36.0) g/dL RDW 14.0 (11.5-14.5) % Plt Count 113 L (140-440) K/mcL MPV 9.6 (8.8-12.5) fL Immature Gran % (Auto) 0.1 (0.0-0.5) % Neut % (Auto) 5.6 L (38.0-78.0) % Lymph % (Auto) 92.7 H (15.5-49.0) % [place] % (Auto) 1.4 (1.0-12.0) % Eos % (Auto) 0.1 (0.0-7.0) % Baso % (Auto) 0.1 (0.0-2.0) % Lymph # (Auto) 74.58 H (1.50-4.80) K/mcL [place] # (Auto) 1.13 H (0.10-0.90) K/mcL Eos # (Auto) 0.08 (0.00-0.70) K/mcL Baso # (Auto) 0.06 (0.00-0.30) K/mcL Immature Gran # 0.10 H (0.00-0.05) K/mcl Absolute Neutrophils 4.49 (1.80-8.00) K/mcL POC VBG pH (7.32-7.42) POC VBG pCO2 at Temp (41-51) POC VBG pO2 (25-40) POC VBG HCO3 (24-28) POC VBG Total CO2 (25-29) POC Venous O2 Sat (40-70) POC VBG Base Excess (-2-2) VBG Lactic Acid (0.5-2) POC Sodium (133-145) POC Potassium (3.3-5.1) POC Chloride (96-108) POC Total CO2 (22-30) POC BUN (6-20) POC Creatinine (0.6-1.2) POC Glucose (70-105) POC WB Ioniz Calcium (1.16-1.32) Magnesium 1.8 (1.6-2.5) mg/dL Total Bilirubin 0.6 (0.1-1.0) mg/dL Direct Bilirubin < 0.2 (0-0.3) mg/dL AST 185 H (<40) U/L ALT 86 H (<40) U/L Alkaline Phosphatase 151 H (39-117) U/L Troponin T (<0.03) ng/mL Total Protein 6.7 (5.9-8.4) gm/dL Albumin 4.4 (3.2-5.2) gm/dL Globulin 2.3 (2.2-3.7) gm/dL Lipase 45 (7-60) U/L Procalcitonin (<0.10) ng/mL Ethyl Alcohol mg/dL 365.0 mg/dL Ethyl Alcohol g/dL 0.365 H (<0.010) gm/dL 01/14/22 01/14/22 01/14/22 Range/Units 23:54 23:54 23:54 WBC (4.5-11.0) K/mcL RBC (4.63-6.08) M/mcL Hgb (13.7-17.5) g/dL Hct (40.1-51.0) % POC Hct 49.0 (41-55) MCV (80.0-100.0) fL MCH (26.0-34.0) pg MCHC (31.0-36.0) g/dL RDW (11.5-14.5) % Plt Count (140-440) K/mcL MPV (8.8-12.5) fL Immature Gran % (Auto) (0.0-0.5) % Neut % (Auto) (38.0-78.0) % Lymph % (Auto) (15.5-49.0) % [place] % (Auto) (1.0-12.0) % Eos % (Auto) (0.0-7.0) % Baso % (Auto) (0.0-2.0) % Lymph # (Auto) (1.50-4.80) K/mcL [place] # (Auto) (0.10-0.90) K/mcL Eos # (Auto) (0.00-0.70) K/mcL Baso # (Auto) (0.00-0.30) K/mcL Immature Gran # (0.00-0.05) K/mcl Absolute Neutrophils (1.80-8.00) K/mcL POC VBG pH (7.32-7.42) POC VBG pCO2 at Temp (41-51) POC VBG pO2 (25-40) POC VBG HCO3 (24-28) POC VBG Total CO2 (25-29) POC Venous O2 Sat (40-70) POC VBG Base Excess (-2-2) VBG Lactic Acid (0.5-2) POC Sodium 138 (133-145) POC Potassium 3.4 (3.3-5.1) POC Chloride 96 (96-108) POC Total CO2 27.0 (22-30) POC BUN 9 (6-20) POC Creatinine 1.3 H (0.6-1.2) POC Glucose 131 H (70-105) POC WB Ioniz Calcium 1.01 L (1.16-1.32) Magnesium (1.6-2.5) mg/dL Total Bilirubin (0.1-1.0) mg/dL Direct Bilirubin (0-0.3) mg/dL AST (<40) U/L ALT (<40) U/L Alkaline Phosphatase (39-117) U/L Troponin T < 0.01 (<0.03) ng/mL Total Protein (5.9-8.4) gm/dL Albumin (3.2-5.2) gm/dL Globulin (2.2-3.7) gm/dL Lipase (7-60) U/L Procalcitonin 0.08 (<0.10) ng/mL Ethyl Alcohol mg/dL mg/dL Ethyl Alcohol g/dL (<0.010) gm/dL 01/15/22 Range/Units 01:13 WBC (4.5-11.0) K/mcL RBC (4.63-6.08) M/mcL Hgb (13.7-17.5) g/dL Hct (40.1-51.0) % POC Hct (41-55) MCV (80.0-100.0) fL MCH (26.0-34.0) pg MCHC (31.0-36.0) g/dL RDW (11.5-14.5) % Plt Count (140-440) K/mcL MPV (8.8-12.5) fL Immature Gran % (Auto) (0.0-0.5) % Neut % (Auto) (38.0-78.0) % Lymph % (Auto) (15.5-49.0) % [place] % (Auto) (1.0-12.0) % Eos % (Auto) (0.0-7.0) % Baso % (Auto) (0.0-2.0) % Lymph # (Auto) (1.50-4.80) K/mcL [place] # (Auto) (0.10-0.90) K/mcL Eos # (Auto) (0.00-0.70) K/mcL Baso # (Auto) (0.00-0.30) K/mcL Immature Gran # (0.00-0.05) K/mcl Absolute Neutrophils (1.80-8.00) K/mcL POC VBG pH 7.45 H (7.32-7.42) POC VBG pCO2 at Temp 39.4 L (41-51) POC VBG pO2 122 H (25-40) POC VBG HCO3 27.5 (24-28) POC VBG Total CO2 29.0 (25-29) POC Venous O2 Sat 99.0 H (40-70) POC VBG Base Excess 3.0 H (-2-2) VBG Lactic Acid 2.4 H (0.5-2) POC Sodium (133-145) POC Potassium (3.3-5.1) POC Chloride (96-108) POC Total CO2 (22-30) POC BUN (6-20) POC Creatinine (0.6-1.2) POC Glucose (70-105) POC WB Ioniz Calcium (1.16-1.32) Magnesium (1.6-2.5) mg/dL Total Bilirubin (0.1-1.0) mg/dL Direct Bilirubin (0-0.3) mg/dL AST (<40) U/L ALT (<40) U/L Alkaline Phosphatase (39-117) U/L Troponin T (<0.03) ng/mL Total Protein (5.9-8.4) gm/dL Albumin (3.2-5.2) gm/dL Globulin (2.2-3.7) gm/dL Lipase (7-60) U/L Procalcitonin (<0.10) ng/mL Ethyl Alcohol mg/dL mg/dL Ethyl Alcohol g/dL (<0.010) gm/dL ED POC Tests ED POC Tests: DARYL - SARS Antigen Negative Discharge Plan Patient/Caregiver Discharge Instructions Pt seen by [facility]/PA only: No Clinical Impression: Alcohol withdrawal delirium, Leukocytosis, History of chronic lymphocytic leukemia Patient Disposition: Xfer As Inpt ([facility]) Condition: Serious Discharge Date/Time: 01/15/22 02:00
[2022-01-15] MEDS ORDERED: SENNOSIDES 1 TABLET PO PRN (08:31)
[2022-01-15] MEDS ORDERED: LACTULOSE 20 GM/30 ML ORAL.SOL PO PRN (08:31)
[2022-01-15] MEDS ORDERED: METOPROLOL TARTRATE 5 MG/5 ML VIAL IV PRN (08:35)
[2022-01-15] MEDS ORDERED: HALOPERIDOL LACTATE 5 MG/ML VIAL IV PRN (08:36)
[2022-01-15] MEDS ORDERED: LORazepam 2 MG/ML VIAL IV PRN (08:37)
--- NOTE | 2022-01-15 08:40 | Internal Med History&Physical ---
HPI History of Present Illness Patient information: Note initiated : 01/15/22 at 8:37 am Service Date, if different from initiated Date: [] Patient: Abram Chinchilla a 61 y/o M admitted on 01/15/22 for alcohol withdrawl. Chief Complaint: [delirium tremens] Chief complaint: Delirium tremens History of present illness: Mr. Chinchilla is a 61 year old M history of CLL, meningioma, alcoholism, presenting with alcohol withdrawal. He was hospitalized in our facility last January. He will presented to the ED last night with typical alcohol ithdrawal symptoms. He drinks 1.5 L of hard liquor per day, serum alcohol level 0.365. White count 18.4, baseline in the 20s. CIWA score this morning 17. Patient is currently lethargic and thus cannot participate much in the medical interview. Review of Systems ROS unobtainable: due to mental status PFSH PFSH All Active Problems (Updated 01/15/22 @ 08:43 by Kal Concepcion MD) Stage 1 acute kidney injury (Acute) History of chronic lymphocytic leukemia (Acute) Hypokalemia (Acute) Aspiration pneumonia (Acute) Hypertensive urgency (Acute) Meningioma (Acute) Hypomagnesemia (Acute) Systolic CHF, chronic (Acute) Alcohol withdrawal delirium (Acute) Leukocytosis (Acute) Alcoholic hepatitis (Acute) Atrial fibrillation with RVR (Acute) Social History smoking status: Smokeless tobacco MEDS/ALLERGIES Home Medications and Allergies Home Medications Medication Instructions Recorded Confirmed Type cholecalciferol (vitamin D3) 125 125 mcg PO QDAY 01/15/22 01/15/22 History mcg (5,000 unit) capsule escitalopram oxalate 20 mg tablet 20 mg PO QDAY 01/15/22 01/15/22 History metoprolol succinate 50 mg 50 mg PO BID 01/15/22 01/15/22 History tablet,extended release 24 hr tamsulosin 0.4 mg capsule 0.4 mg PO QDAY 01/15/22 01/15/22 History Allergies Allergy/AdvReac Type Severity Reaction Status Date / Time No Known Drug Allergies Allergy Verified 01/15/22 05:48 EXAM Constitutional Vitals: Temp Pulse Resp BP Pulse Ox O2 Del Method O2 Flow Rate 36.1 C 108 H 26 H 139/102 97 1 01/15/22 08:00 01/15/22 08:00 01/15/22 08:00 01/15/22 08:00 01/15/22 08:00 01/15/22 08:00 01/15/22 08:00 General appearance: cooperative and no acute distress Exam: Lethargic Head Head exam: Present atraumatic and normocephalic Eye Eye exam: Present EOMI and PERRL ENT ENT exam: Present mucous membranes moist, normal exam and normal external ear exam Additional comments: Nasal cannula in place Neck Neck exam: Present normal inspection; Absent lymphadenopathy, tenderness or thyromegaly Respiratory Respiratory exam: Absent accessory muscle use, respiratory distress or wheezes Cardiovascular Cardiovascular exam: Present irregular rhythm and tachycardia; Absent JVD GI/Abdominal GI/Abdominal exam: Present normal bowel sounds and soft; Absent organomegaly or tenderness Rectal Rectal exam: Present deferred Extremities Exam Extremities exam: Present full ROM, normal capillary refill and normal inspection; Absent tenderness Neurological Exam Neurological exam: Present alert, CN II-XII intact and oriented X3; Absent motor sensory deficit Psychiatric Psychiatric exam: Present normal affect and normal mood; Absent anxious or depressed Skin Skin exam: Present dry and intact DATA Data Completed and Pending Labs: Labs from last 24 hours 01/15/22 01/15/22 01/14/22 05:14 01:13 23:54 WBC RBC Hgb Hct POC Hct MCV MCH MCHC RDW Plt Count MPV Immature Gran % (Auto) Neut % (Auto) Lymph % (Auto) [place] % (Auto) Eos % (Auto) Baso % (Auto) Lymph # (Auto) [place] # (Auto) Eos # (Auto) Baso # (Auto) Immature Gran # Absolute Neutrophils POC VBG pH 7.45 H POC VBG pCO2 at Temp 39.4 L POC VBG pO2 122 H POC VBG HCO3 27.5 POC VBG Total CO2 29.0 POC Venous O2 Sat 99.0 H POC VBG Base Excess 3.0 H VBG Lactic Acid 2.3 H 2.4 H POC Sodium POC Potassium POC Chloride POC Total CO2 POC BUN POC Creatinine POC Glucose POC WB Ioniz Calcium Magnesium Total Bilirubin Direct Bilirubin AST ALT Alkaline Phosphatase Troponin T Total Protein Albumin Globulin Lipase Procalcitonin 0.08 Ethyl Alcohol mg/dL Ethyl Alcohol g/dL 01/14/22 01/14/22 01/14/22 23:54 23:54 23:54 WBC RBC Hgb Hct POC Hct 49.0 MCV MCH MCHC RDW Plt Count MPV Immature Gran % (Auto) Neut % (Auto) Lymph % (Auto) [place] % (Auto) Eos % (Auto) Baso % (Auto) Lymph # (Auto) [place] # (Auto) Eos # (Auto) Baso # (Auto) Immature Gran # Absolute Neutrophils POC VBG pH POC VBG pCO2 at Temp POC VBG pO2 POC VBG HCO3 POC VBG Total CO2 POC Venous O2 Sat POC VBG Base Excess VBG Lactic Acid POC Sodium 138 POC Potassium 3.4 POC Chloride 96 POC Total CO2 27.0 POC BUN 9 POC Creatinine 1.3 H POC Glucose 131 H POC WB Ioniz Calcium 1.01 L Magnesium Total Bilirubin Direct Bilirubin AST ALT Alkaline Phosphatase Troponin T < 0.01 Total Protein Albumin Globulin Lipase Procalcitonin Ethyl Alcohol mg/dL 365.0 Ethyl Alcohol g/dL 0.365 H 01/14/22 01/14/22 23:54 23:54 WBC 80.4 H* RBC 4.83 Hgb 15.7 Hct 46.0 POC Hct MCV 95.2 MCH 32.5 MCHC 34.1 RDW 14.0 Plt Count 113 L MPV 9.6 Immature Gran % (Auto) 0.1 Neut % (Auto) 5.6 L Lymph % (Auto) 92.[address] [place] % (Auto) 1.4 Eos % (Auto) 0.1 Baso % (Auto) 0.1 Lymph # (Auto) 74.[address] [place] # (Auto) 1.13 H Eos # (Auto) 0.08 Baso # (Auto) 0.06 Immature Gran # 0.10 H Absolute Neutrophils 4.49 POC VBG pH POC VBG pCO2 at Temp POC VBG pO2 POC VBG HCO3 POC VBG Total CO2 POC Venous O2 Sat POC VBG Base Excess VBG Lactic Acid POC Sodium POC Potassium POC Chloride POC Total CO2 POC BUN POC Creatinine POC Glucose POC WB Ioniz Calcium Magnesium 1.8 Total Bilirubin 0.6 Direct Bilirubin < 0.2 AST 185 H ALT 86 H Alkaline Phosphatase 151 H Troponin T Total Protein 6.7 Albumin 4.4 Globulin 2.3 Lipase 45 Procalcitonin Ethyl Alcohol mg/dL Ethyl Alcohol g/dL A/P Assessment and plan (1) History of chronic lymphocytic leukemia: Status: Acute (2) Atrial fibrillation with RVR: Status: Acute (3) Alcohol withdrawal delirium: Status: Acute (4) Stage 1 acute kidney injury: Status: Acute (5) Meningioma: Status: Acute Narrative A/P Narrative: Assessment and Plans: 1. Alcohol withdrawal with delirium tremens: Inpatient PCU with telemetry CIWA protocol with Ativan IV Ativan IV PRN seizure activities Banana bag Thiamine folic acid multivitamins manager of change consult 2. h/o chronic lymphocytic leukemia: Outpatient oncology follow up 3. h/o meningoma: Outpatient oncology follow up 4. h/o permanent atrial fibrillation with RVR: Metoprolol Succinate 50mg PO BID Lopressor IV PRN HR>=120bpm Defer the decision to start anticoagulation to PCP 5. Stage 1 acute kidney injury: Avoid nephrotoxic agents Banana bag CMP in the morning to trend kidney functions GI ppx: not currently indicated DVT ppx: Heparin Code status: DNR Prognosis: guarded Disposition: inpatient PCU Time Spent With Patient Time: Total time spent is greater than 50% in coordination of care (as documented) at patient's floor/unit and/or counseling patient: Total time spent with greater than 50% in coordination of care (as documented) a t patient's floor/unit and/or counseling patient:: 50 - 70 minutes
[2022-01-15] MEDS ORDERED: cefTRIAXone 1 GM in DEXTROSE 5% IN WATER 50 ML IV SCH (08:45)
[2022-01-15] MEDS ORDERED: AZITHROMYCIN 500 MG in DEXTROSE 5% IN WATER 250 ML IV SCH (08:45)
[2022-01-15] MEDS: VITAMIN D3 125 MCG TABLET PO SCH (08:46)
[2022-01-15] MEDS: TAMSULOSIN 0.4 MG CAPSULE PO SCH (08:46)
[2022-01-15] MEDS: METOPROLOL SUCCINATE 50 MG TAB.XL.24H PO SCH ×2 (08:46→20:01)
[2022-01-15] MEDS: ESCITALOPRAM 20 MG TABLET PO SCH (08:46)
[2022-01-15] MEDS: MULTIVIT,THER IRON,CA,FA & MIN 1 TABLET PO SCH (09:23)
[2022-01-15] MEDS: HEPARIN 5,000 UNIT/ML VIAL SQ SCH ×2 (09:23→20:01)
[2022-01-15] MEDS: THIAMINE 100 MG TABLET PO SCH (09:23)
[2022-01-15] MEDS: DOCUSATE SODIUM 100 MG CAPSULE PO SCH ×2 (09:23→20:01)
[2022-01-15] MEDS: FOLIC ACID 1 MG TABLET PO SCH (09:23)
[2022-01-15] MEDS ORDERED: POTASSIUM CHLORIDE 20 MEQ, MAGNESIUM SULFATE 16.24 MEQ, THIAMINE 100 MG, MVI, ADULT NO.... IV ONE (10:00)
[2022-01-15] MEDS: METOPROLOL TARTRATE 5 MG/5 ML VIAL IV PRN ×2 (11:01→13:00)
[2022-01-15] MEDS ORDERED: 0.9 % SODIUM CHLORIDE 10 ML SYRINGE IV SCH (14:00)
[2022-01-15] MEDS: 0.9 % SODIUM CHLORIDE 10 ML SYRINGE IV SCH ×2 (14:19→20:01)
[2022-01-15] MEDS: cloNIDine HCL 0.1 MG TABLET PO PRN (18:02)
[2022-01-15] MEDS: morphine 2 MG/ML VIAL IV PRN (22:34)
[2022-01-16] MEDS: 0.9 % SODIUM CHLORIDE 10 ML SYRINGE IV SCH ×4 (05:08→21:23)
[2022-01-16 06:30] LABS: Basophils # (Auto) 0.12 K/mcL (0.00-0.30); Basophils % (Auto) 0.3 % (0.0-2.0); Eosinophils # (Auto) 0.18 K/mcL (0.00-0.70); Eosinophils % (Auto) 0.5 % (0.0-7.0); Hematocrit 41.9 % (40.1-51.0); Hemoglobin 13.9 g/dL (13.7-17.5); Lymphocytes # (Auto) 29.53 K/mcL (1.50-4.80); Lymphocytes % (Auto) 84.6 % (15.5-49.0); Mean Cell Volume 101.5 fL (80.0-100.0); Mean Corpuscular HGB Conc 33.2 g/dL (31.0-36.0); Mean Platelet Volume 9.9 fL (8.8-12.5); Monocytes # (Auto) 0.72 K/mcL (0.10-0.90); Monocytes % (Auto) 2.1 % (1.0-12.0); Neutrophils % (Auto) 12.3 % (38.0-78.0); Platelet Count 72 K/mcL (140-440); RBC 4.13 M/mcL (4.63-6.08); Red Cell Distribution Width 14.4 % (11.5-14.5)
[2022-01-16 06:45] LABS: ALT/SGPT 60 U/L (<40); AST/SGOT 103 U/L (<40); Albumin 3.5 gm/dL (3.2-5.2); Albumin/Globulin Ratio 1.8 (1.0-2.3); Alkaline Phosphatase 92 U/L (39-117); Bilirubin,Total 1.3 mg/dL (0.1-1.0); Blood Urea Nitrogen 17 mg/dL (6-20); Calcium 8.1 mg/dL (8.6-10.4); Carbon Dioxide 29 mmol/L (22-30); Chloride 102 mmol/L (96-108); Globulin 1.9 gm/dL (2.2-3.7); Glomerular Filtration Rate 98; Glucose 103 mg/dL (70-105); Phosphorous 2.9 mg/dL (2.5-4.5)
[2022-01-16] MEDS: LORazepam 2 MG/ML VIAL IV PRN ×6 (06:52→22:58)
[2022-01-16 07:50] LABS: WBC 34.9 K/mcL (4.5-11.0)
[2022-01-16] MEDS: TAMSULOSIN 0.4 MG CAPSULE PO SCH (08:25)
[2022-01-16] MEDS: METOPROLOL SUCCINATE 50 MG TAB.XL.24H PO SCH ×2 (08:25→19:22)
[2022-01-16] MEDS: DOCUSATE SODIUM 100 MG CAPSULE PO SCH ×2 (08:25→19:22)
[2022-01-16] MEDS: ESCITALOPRAM 20 MG TABLET PO SCH (08:25)
[2022-01-16] MEDS: HEPARIN 5,000 UNIT/ML VIAL SQ SCH (08:25)
[2022-01-16] MEDS: VITAMIN D3 125 MCG TABLET PO SCH (08:25)
[2022-01-16] MEDS: THIAMINE 100 MG TABLET PO SCH (08:26)
[2022-01-16] MEDS: FOLIC ACID 1 MG TABLET PO SCH (08:26)
[2022-01-16] MEDS: cloNIDine HCL 0.1 MG TABLET PO PRN ×2 (08:26→19:22)
[2022-01-16] MEDS: MULTIVIT,THER IRON,CA,FA & MIN 1 TABLET PO SCH (08:26)
--- NOTE | 2022-01-16 08:44 | Internal Med Progress Note ---
SUBJECTIVE Subjective Patient information: Note initiated : 01/16/22 at 8:42 am Service Date, if different from initiated Date: [] Patient: Abram Chinchilla a 61 y/o M admitted on 01/15/22 for alcohol withdrawl. Chief Complaint: [] Interval history: Mr. Chinchilla is a 61 year old M history of CLL, meningioma, alcoholism, presenting with alcohol withdrawal. He was hospitalized in our facility last January. He will presented to the ED last night with typical alcohol ithdrawal symptoms. He drinks 1.5 L of hard liquor per day, serum alcohol level 0.365. White count 18.4, baseline in the 20s. CIWA score this morning 17. Patient is currently lethargic and thus cannot participate much in the medical interview. 01/16: CIWA score 18 this morning. No reported seizures episodes overnight. Afebrile overnight. Patient is currently on room air. Cultures no growth to date. Patient denies insomnia. Patient is coming of anxiety and agitations. Patient is complaining of tendinitis but denies any visual or auditory hallucinations otherwise. No increased hand tremors. Continue CIWA protocol with Ativan for alcohol withdrawal symptoms controlled. Add hydrochlorothiazide for better blood pressure control. Supplemental oxygen therapy as needed. biodiesel product development manager consulted for discharge planning. Constitutional Vitals: Vital Signs Temp Pulse Resp BP Pulse Ox O2 Del Method O2 Flow Rate 36.1 C L 103 H 26 H 149/124 92 2 01/16/22 08:00 01/16/22 08:00 01/16/22 08:00 01/16/22 08:00 01/16/22 08:00 01/16/22 08:00 01/16/22 04:23 Period Temp Pulse Resp BP Sys/Johnson Pulse Ox O2 Del Method O2 Flow Rate Last 24 Hr 36.1 C-36.8 C 25-128 13-32 130-173/90-137 90-100 Nasal Cannula-Room Air 1-4 Intake and Output 01/15/22 01/16/22 01/16/22 21:59 05:59 13:59 Intake Total 1785 1400 Output Total 401 301 Balance 1384 1099 Weight 105.415 kg Intake & Output: Intake & Output 01/15/22 01/16/22 01/16/22 21:59 05:59 13:59 Intake Total 1785 1400 Output Total 401 301 Balance 1384 1099 Weight 105.415 kg Intake: IV 1025 Potassium Chloride 20 Meq 1025 Magnesium Sulfate 16.24 Meq Vitamin B1 100 mg Infuvite Adult 10 ml In Sodium Chloride 0.9% 1,000 ml @ 100 mls/hr IV . [id number] Rx#:[id number] Oral 760 1400 Output: Void Amount 400 300 # of times incontinent of urine 1 1 Other: Meal Dinner Percent of Meal Consumed 100% Feeding Ability Independent Urine Appearance Clear Clear Urine Color Dark Quyen Light Quyen Urine Odor Normal Strong # Voids 1 1 Head Head exam: Present atraumatic and normal inspection Eye Eye exam: Present normal appearance ENT ENT exam: Present mucous membranes moist, normal exam and normal external ear exam Neck Neck exam: Present normal inspection Respiratory Respiratory exam: Present normal respiratory exam Cardiovascular Cardiovascular exam: Present tachycardia GI/Abdominal GI/Abdominal exam: Present normal bowel sounds Back Exam Back exam: Present normal inspection Neurological Exam Neurological exam: Present alert and oriented X3 Skin Skin exam: Present intact and warm OBJ DATA Labs CBC & Chem 7: 01/16/22 05:02 01/16/22 05:02 Labs: Abnormal Lab Results 01/16/22 01/16/22 01/15/22 05:02 05:02 05:14 WBC 34.9 H* RBC 4.13 L MCV 101.5 H Plt Count 72 L Neut % (Auto) 12.3 L Lymph % (Auto) 84.6 H Lymph # (Auto) 29.53 H [place] # (Auto) Immature Gran # 0.06 H POC VBG pH POC VBG pCO2 at Temp POC VBG pO2 POC Venous O2 Sat POC VBG Base Excess VBG Lactic Acid 2.3 H Anion Gap 7.0 L POC Creatinine POC Glucose Calcium 8.1 L POC WB Ioniz Calcium Total Bilirubin 1.3 H AST 103 H ALT 60 H Alkaline Phosphatase Total Protein 5.4 L Globulin 1.9 L Ethyl Alcohol g/dL 01/15/22 01/14/22 01/14/22 01:13 23:54 23:54 WBC RBC MCV Plt Count Neut % (Auto) Lymph % (Auto) Lymph # (Auto) [place] # (Auto) Immature Gran # POC VBG pH 7.45 H POC VBG pCO2 at Temp 39.4 L POC VBG pO2 122 H POC Venous O2 Sat 99.0 H POC VBG Base Excess 3.0 H VBG Lactic Acid 2.4 H Anion Gap POC Creatinine 1.3 H POC Glucose 131 H Calcium POC WB Ioniz Calcium 1.01 L Total Bilirubin AST ALT Alkaline Phosphatase Total Protein Globulin Ethyl Alcohol g/dL 0.365 H 01/14/22 01/14/22 23:54 23:54 WBC 80.4 H* RBC MCV Plt Count 113 L Neut % (Auto) 5.6 L Lymph % (Auto) 92.7 H Lymph # (Auto) 74.58 H [place] # (Auto) 1.13 H Immature Gran # 0.10 H POC VBG pH POC VBG pCO2 at Temp POC VBG pO2 POC Venous O2 Sat POC VBG Base Excess VBG Lactic Acid Anion Gap POC Creatinine POC Glucose Calcium POC WB Ioniz Calcium Total Bilirubin AST 185 H ALT 86 H Alkaline Phosphatase 151 H Total Protein Globulin Ethyl Alcohol g/dL Meds: Medications Acetaminophen (Acetaminophen 325 Mg Tablet) 650 mg PO Q6HP PRN; Protocol PRN Reason: Per Pain Protocol/Fever > 101 Clonidine HCl (Clonidine Hcl 0.1 Mg Tablet) 0.1 mg PO Q4HP PRN PRN Reason: ALC Last Admin: 01/16/22 08:26 Dose: 0.1 mg Docusate Sodium (Docusate Sodium 100 Mg Capsule) 100 mg PO BID [facility] Last Admin: 01/16/22 08:25 Dose: 100 mg Escitalopram Oxalate (Escitalopram 20 Mg Tablet) 20 mg PO QDAY [facility] Last Admin: 01/16/22 08:25 Dose: 20 mg Folic Acid (Folic Acid 1 Mg Tablet) 1 mg PO DAILY [facility] Last Admin: 01/16/22 08:26 Dose: 1 mg Haloperidol Lactate (Haloperidol Lactate 5 Mg/Ml Vial) 0.5 mg IV Q2HP PRN PRN Reason: Alcohol Withdrawal/Assess CIWA Heparin Sodium (Porcine) (Heparin 5,000 Unit/Ml Vial) 5,000 unit SQ Q12 [facility] Last Admin: 01/16/22 08:25 Dose: 5,000 unit Iron Carb/Multivit/[place]/Folic Acid (Multivit,Ther Iron,Ca,Fa & Min 1 Tablet) 1 tab PO DAILY [facility] Last Admin: 01/16/22 08:26 Dose: 1 tab Lactulose (Lactulose 20 Gm/30 Ml Oral.Graciela) 10 gm PO DAILYP PRN PRN Reason: Constipation Lorazepam (Lorazepam 2 Mg/Ml Vial) 0 mg IV UD PRN; Protocol PRN Reason: Alcohol Withdrawal/Assess CICT Last Admin: 01/16/22 06:52 Dose: 3 mg Lorazepam (Lorazepam 2 Mg/Ml Vial) 1 mg IV Q1HP PRN PRN Reason: Seizure Activity Metoprolol Succinate (Metoprolol Succinate 50 Mg Tab.Xl.24h) 50 mg PO BID [facility] Last Admin: 01/16/22 08:25 Dose: 50 mg Metoprolol Tartrate (Metoprolol Tartrate 5 Mg/5 Ml Vial) 5 mg IV Q1HP PRN PRN Reason: Tachyarrhythmias Last Admin: 01/15/22 13:00 Dose: 5 mg Morphine Sulfate (Morphine 2 Mg/Ml Vial) 2 mg IV Q1HP PRN; Protocol PRN Reason: Per Pain Protocol Last Admin: 01/15/22 22:34 Dose: 2 mg Naloxone HCl (Naloxone Hcl 0.4 Mg/Ml Vial) 0.1 mg IV Q2MIN PRN PRN Reason: Opiate Reversal Ondansetron HCl (Ondansetron 4 Mg/2 Ml Vial) 4 mg IV Q4HP PRN; Protocol PRN Reason: Nausea And Vomiting Senna (Sennosides 1 Tablet) 2 tab PO HSP PRN PRN Reason: Constipation Sodium Chloride (0.9 % Sodium Chloride 10 Ml Syringe) 10 ml IV Q8 [facility] Last Admin: 01/16/22 05:08 Dose: 10 ml Tamsulosin HCl (Tamsulosin 0.4 Mg Capsule) 0.4 mg PO QDAY [facility] Last Admin: 01/16/22 08:25 Dose: 0.4 mg Thiamine HCl (Thiamine 100 Mg Tablet) 100 mg PO QDAY [facility] Last Admin: 01/16/22 08:26 Dose: 100 mg Vitamin D (Vitamin D3 125 Mcg Tablet) 125 mcg PO DAILY [facility] Last Admin: 01/16/22 08:25 Dose: 125 mcg A/P Assessment and plan (1) History of chronic lymphocytic leukemia: Status: Acute (2) Atrial fibrillation with RVR: Status: Acute (3) Alcohol withdrawal delirium: Status: Acute (4) Stage 1 acute kidney injury: Status: Acute (5) Meningioma: Status: Acute Narrative A/P Narrative: Assessment and Plans: 1. Alcohol withdrawal with delirium tremens: Inpatient PCU with telemetry [facility] protocol with Ativan IV Ativan IV PRN seizure activities Banana bag Thiamine folic acid multivitamins biodiesel product development manager consult Add HCTZ for better blood pressure control 2. h/o chronic lymphocytic leukemia: Outpatient oncology follow up 3. h/o meningoma: Outpatient oncology follow up 4. h/o permanent atrial fibrillation with RVR: Metoprolol Succinate 50mg PO BID Lopressor IV PRN HR>=120bpm Defer the decision to start anticoagulation to PCP 5. Stage 1 acute kidney injury: Avoid nephrotoxic agents Banana bag CMP in the morning to trend kidney functions GI ppx: not currently indicated DVT ppx: Heparin Code status: DNR Prognosis: guarded Disposition: inpatient PCU Time Spent With Patient Time: Total time spent is greater than 50% in coordination of care (as documented) at patient's floor/unit and/or counseling patient: Total time spent with greater than 50% in coordination of care (as documented) at patient's floor/unit and/or counseling patient:: 35 - 50 minutes
[2022-01-16] MEDS: HYDROCHLOROTHIAZIDE 25 MG TABLET PO SCH (09:08)
--- NOTE | 2022-01-16 09:16 | EKG ---
[facility] Test Date: 2022-01-14 Pat Name: Abram Chnichilla Department: ED Room: Gender: Male [place] Tanner: EDGARDO : [id number] Requested By: Waqar Barnett Order Number: [id number] Reading MD: Elie Connolly Measurements Intervals [place] Rate: 153 P: GA: QRS: 55 QRSD: 80 T: -18 QT: 299 QTc: 478 Interpretive Statements Atrial fibrillation RVR Repolarization abnormality, prob rate related Borderline prolonged QT interval Electronically Signed On 01-16-2022 9:15:37 PDT by Elie Connolly /[facility] [id number]
[2022-01-16] MEDS: morphine 2 MG/ML VIAL IV PRN (22:20)
[2022-01-17] MEDS: cloNIDine HCL 0.1 MG TABLET PO PRN ×3 (00:53→20:54)
[2022-01-17] MEDS: LORazepam 2 MG/ML VIAL IV PRN ×3 (00:54→10:23)
[2022-01-17] MEDS: morphine 2 MG/ML VIAL IV PRN ×2 (03:35→22:27)
[2022-01-17] MEDS: 0.9 % SODIUM CHLORIDE 10 ML SYRINGE IV SCH ×3 (05:43→20:54)
[2022-01-17] MEDS: METOPROLOL TARTRATE 5 MG/5 ML VIAL IV PRN (06:44)
[2022-01-17 07:26] LABS: Phosphorous 3.2 mg/dL (2.5-4.5)
[2022-01-17 07:33] LABS: ALT/SGPT 47 U/L (<40); AST/SGOT 73 U/L (<40); Albumin 3.4 gm/dL (3.2-5.2); Alkaline Phosphatase 91 U/L (39-117); Blood Urea Nitrogen 9 mg/dL (6-20); Calcium 8.2 mg/dL (8.6-10.4); Carbon Dioxide 28 mmol/L (22-30); Chloride 96 mmol/L (96-108); Globulin 1.7 gm/dL (2.2-3.7); Glomerular Filtration Rate 103; Glucose 94 mg/dL (70-105)
[2022-01-17 07:39] LABS: Basophils # (Auto) 0.09 K/mcL (0.00-0.30); Basophils % (Auto) 0.3 % (0.0-2.0); Eosinophils # (Auto) 0.16 K/mcL (0.00-0.70); Eosinophils % (Auto) 0.5 % (0.0-7.0); Hematocrit 38.3 % (40.1-51.0); Hemoglobin 12.7 g/dL (13.7-17.5); Lymphocytes # (Auto) 28.46 K/mcL (1.50-4.80); Lymphocytes % (Auto) 86.3 % (15.5-49.0); Mean Corpuscular HGB Conc 33.2 g/dL (31.0-36.0); Mean Platelet Volume 9.8 fL (8.8-12.5); Monocytes % (Auto) 2.7 % (1.0-12.0); Platelet Count 69 K/mcL (140-440); RBC 3.83 M/mcL (4.63-6.08)
[2022-01-17] MEDS: VITAMIN D3 125 MCG TABLET PO SCH (08:52)
[2022-01-17] MEDS: ESCITALOPRAM 20 MG TABLET PO SCH (08:52)
[2022-01-17] MEDS: TAMSULOSIN 0.4 MG CAPSULE PO SCH (08:52)
[2022-01-17] MEDS: MULTIVIT,THER IRON,CA,FA & MIN 1 TABLET PO SCH (08:52)
[2022-01-17] MEDS: ENOXAPARIN 40 MG/0.4 ML SYRINGE SQ SCH (08:52)
[2022-01-17] MEDS: HYDROCHLOROTHIAZIDE 25 MG TABLET PO SCH ×3 (08:52→10:05)
[2022-01-17] MEDS: THIAMINE 100 MG TABLET PO SCH (08:53)
[2022-01-17] MEDS: FOLIC ACID 1 MG TABLET PO SCH (08:53)
[2022-01-17] MEDS: METOPROLOL SUCCINATE 50 MG TAB.XL.24H PO SCH ×2 (08:53→20:53)
[2022-01-17] MEDS: DOCUSATE SODIUM 100 MG CAPSULE PO SCH ×2 (08:53→20:48)
[2022-01-17] MEDS ORDERED: chlordiazePOXIDE 25 MG CAPSULE PO PRN (09:06)
--- NOTE | 2022-01-17 09:11 | Internal Med Progress Note ---
SUBJECTIVE Subjective Patient information: Note initiated : 01/17/22 at 9:06 am Service Date, if different from initiated Date: [] Patient: Abram Chinchilla a 61 y/o M admitted on 01/15/22 for alcohol withdrawl. Chief Complaint: [] Interval history: Mr. Chinchilla is a 61 year old M history of CLL, meningioma, alcoholism, presenting with alcohol withdrawal. He was hospitalized in our facility last January. He will presented to the ED last night with typical alcohol ithdrawal symptoms. He drinks 1.5 L of hard liquor per day, serum alcohol level 0.365. White count 18.4, baseline in the 20s. CIWA score this morning 17. Patient is currently lethargic and thus cannot participate much in the medical interview. 01/16: CIWA score 18 this morning. No reported seizures episodes overnight. Afebrile overnight. Patient is currently on room air. Cultures no growth to date. Patient denies insomnia. Patient is coming of anxiety and agitations. Patient is complaining of tendinitis but denies any visual or auditory hallucinations otherwise. No increased hand tremors. Continue CIWA protocol with Ativan for alcohol withdrawal symptoms controlled. Add hydrochlorothiazide for better blood pressure control. Supplemental oxygen therapy as needed. rental manager consulted for discharge planning. 01/17: CIWA score 19 this morning. He was trying to climb out of bed overnight. H/H 12.7 and 38.3 this morning, serum potassium level 3.3. c/o anxiety and agitation. Has increased bilateral hands tremors. Denies hallucination. Denies insomnia. Denies nausea or vomiting. Continue CIWA protocol with Ativan/Librium for alcohol withdrawal symptoms con trol. Increased HCTZ from 25 to 50mg PO daily. Metoprolol ER. Clonidine PO and Hydralazine IV PRN elevated blood pressure. Potassium chloride oral replacement. rental manager consulted for discharge planning. Constitutional Vitals: Vital Signs Temp Pulse Resp BP Pulse Ox O2 Del Method O2 Flow Rate 36.8 C 92 H 21 144/107 90 2 01/17/22 04:01 01/17/22 06:01 01/17/22 06:01 01/17/22 06:01 01/17/22 06:01 01/16/22 18:35 01/16/22 04:23 Period Temp Pulse Resp BP Sys/Johnson Pulse Ox O2 Del Method O2 Flow Rate Last 24 Hr 36.2 C-36.9 C 87-103 12-46 123-144/71-108 90-98 Room Air-Room Air Intake and Output 01/16/22 01/17/22 01/17/22 21:59 05:59 13:59 Intake Total 940 960 Output Total 426 304 Balance 514 656 Weight 106.912 kg Intake & Output: Intake & Output 01/16/22 01/17/22 01/17/22 21:59 05:59 13:59 Intake Total 940 960 Output Total 426 304 Balance 514 656 Weight 106.912 kg Intake: Oral 940 960 Output: Void Amount 425 300 # of times incontinent of urine 1 4 Other: Meal Dinner Percent of Meal Consumed 75% Feeding Ability Independent Urine Appearance Clear Clear Urine Color Light Quyen Dark Yellow Urine Odor Strong Stool Size Large Stool Color Brown Stool Consistency Soft Formed # Voids 1 # Bowel Movements 1 # of times incontinent of 1 Bowels General appearance: cooperative, disheveled and no acute distress Head Head exam: Present atraumatic and normal inspection Eye Eye exam: Present normal appearance ENT ENT exam: Present mucous membranes moist, normal exam and normal external ear exam Neck Neck exam: Present normal inspection Respiratory Respiratory exam: Present normal respiratory exam Cardiovascular Cardiovascular exam: Present irregular rhythm GI/Abdominal GI/Abdominal exam: Present normal bowel sounds Extremities Exam Extremities exam: Present full ROM Additional comments: Increased hand tremors Back Exam Back exam: Present normal inspection Neurological Exam Neurological exam: Present alert and oriented X3 Skin Skin exam: Present intact and warm OBJ DATA Labs CBC & Chem 7: 01/17/22 05:06 01/17/22 05:06 Labs: Abnormal Lab Results 01/17/22 01/17/22 01/16/22 05:06 05:06 05:02 WBC 33.0 H* RBC 3.83 L Hgb 12.7 L Hct 38.3 L MCV Plt Count 69 L Neut % (Auto) 10.0 L Lymph % (Auto) 86.3 H Lymph # (Auto) 28.46 H [place] # (Auto) Immature Gran # 0.07 H POC VBG pH POC VBG pCO2 at Temp POC VBG pO2 POC Venous O2 Sat POC VBG Base Excess VBG Lactic Acid Anion Gap 7.0 L POC Creatinine POC Glucose Calcium 8.2 L 8.1 L POC WB Ioniz Calcium Total Bilirubin 1.3 H AST 73 H 103 H ALT 47 H 60 H Alkaline Phosphatase Total Protein 5.1 L 5.4 L Globulin 1.7 L 1.9 L Ethyl Alcohol g/dL 01/16/22 01/15/22 01/15/22 05:02 05:14 01:13 WBC 34.9 H* RBC 4.13 L Hgb Hct MCV 101.5 H Plt Count 72 L Neut % (Auto) 12.3 L Lymph % (Auto) 84.6 H Lymph # (Auto) 29.53 H [place] # (Auto) Immature Gran # 0.06 H POC VBG pH 7.45 H POC VBG pCO2 at Temp 39.4 L POC VBG pO2 122 H POC Venous O2 Sat 99.0 H POC VBG Base Excess 3.0 H VBG Lactic Acid 2.3 H 2.4 H Anion Gap POC Creatinine POC Glucose Calcium POC WB Ioniz Calcium Total Bilirubin AST ALT Alkaline Phosphatase Total Protein Globulin Ethyl Alcohol g/dL 01/14/22 01/14/22 01/14/22 23:54 23:54 23:54 WBC RBC Hgb Hct MCV Plt Count Neut % (Auto) Lymph % (Auto) Lymph # (Auto) [place] # (Auto) Immature Gran # POC VBG pH POC VBG pCO2 at Temp POC VBG pO2 POC Venous O2 Sat POC VBG Base Excess VBG Lactic Acid Anion Gap POC Creatinine 1.3 H POC Glucose 131 H Calcium POC WB Ioniz Calcium 1.01 L Total Bilirubin AST 185 H ALT 86 H Alkaline Phosphatase 151 H Total Protein Globulin Ethyl Alcohol g/dL 0.365 H 01/14/22 23:54 WBC 80.4 H* RBC Hgb Hct MCV Plt Count 113 L Neut % (Auto) 5.6 L Lymph % (Auto) 92.7 H Lymph # (Auto) 74.58 H [place] # (Auto) 1.13 H Immature Gran # 0.10 H POC VBG pH POC VBG pCO2 at Temp POC VBG pO2 POC Venous O2 Sat POC VBG Base Excess VBG Lactic Acid Anion Gap POC Creatinine POC Glucose Calcium POC WB Ioniz Calcium Total Bilirubin AST ALT Alkaline Phosphatase Total Protein Globulin Ethyl Alcohol g/dL Meds: Medications Acetaminophen (Acetaminophen 325 Mg Tablet) 650 mg PO Q6HP PRN; Protocol PRN Reason: Per Pain Protocol/Fever > 101 Clonidine HCl (Clonidine Hcl 0.1 Mg Tablet) 0.1 mg PO Q4HP PRN PRN Reason: ALC Last Admin: 01/17/22 00:53 Dose: 0.1 mg Docusate Sodium (Docusate Sodium 100 Mg Capsule) 100 mg PO BID [facility] Last Admin: 01/17/22 08:53 Dose: 100 mg Enoxaparin Sodium (Enoxaparin 40 Mg/0.4 Ml Syringe) 40 mg SQ DAILY [facility] Last Admin: 01/17/22 08:52 Dose: 40 mg Escitalopram Oxalate (Escitalopram 20 Mg Tablet) 20 mg PO QDAY [facility] Last Admin: 01/17/22 08:52 Dose: 20 mg Folic Acid (Folic Acid 1 Mg Tablet) 1 mg PO DAILY [facility] Last Admin: 01/17/22 08:53 Dose: 1 mg Haloperidol Lactate (Haloperidol Lactate 5 Mg/Ml Vial) 0.5 mg IV Q2HP PRN PRN Reason: Alcohol Withdrawal/Assess CIWA Hydralazine HCl (Hydralazine 20 Mg/Ml Vial) 10 mg IV Q4-6HP PRN PRN Reason: Hypertension Hydrochlorothiazide (Hydrochlorothiazide 25 Mg Tablet) 50 mg PO DAILY [facility] Iron Carb/Multivit/[place]/Folic Acid (Multivit,Ther Iron,Ca,Fa & Min 1 Tablet) 1 tab PO DAILY [facility] Last Admin: 01/17/22 08:52 Dose: 1 tab Lactulose (Lactulose 20 Gm/30 Ml Oral.Graciela) 10 gm PO DAILYP PRN PRN Reason: Constipation Lorazepam (Lorazepam 2 Mg/Ml Vial) 0 mg IV UD PRN; Protocol PRN Reason: Alcohol Withdrawal/Assess CIWA Last Admin: 01/17/22 07:00 Dose: 3 mg Lorazepam (Lorazepam 2 Mg/Ml Vial) 1 mg IV Q1HP PRN PRN Reason: Seizure Activity Metoprolol Succinate (Metoprolol Succinate 50 Mg Tab.Xl.24h) 50 mg PO BID [facility] Last Admin: 01/17/22 08:53 Dose: 50 mg Morphine Sulfate (Morphine 2 Mg/Ml Vial) 2 mg IV Q1HP PRN; Protocol PRN Reason: Per Pain Protocol Last Admin: 01/17/22 03:35 Dose: 2 mg Naloxone HCl (Naloxone Hcl 0.4 Mg/Ml Vial) 0.1 mg IV Q2MIN PRN PRN Reason: Opiate Reversal Ondansetron HCl (Ondansetron 4 Mg/2 Ml Vial) 4 mg IV Q4HP PRN; Protocol PRN Reason: Nausea And Vomiting Potassium Chloride (Potassium Chloride 20 Meq Tablet) 20 meq PO BIDCC [facility] Senna (Sennosides 1 Tablet) 2 tab PO HSP PRN PRN Reason: Constipation Sodium Chloride (0.9 % Sodium Chloride 10 Ml Syringe) 10 ml IV Q8 [facility] Last Admin: 01/17/22 05:43 Dose: 10 ml Tamsulosin HCl (Tamsulosin 0.4 Mg Capsule) 0.4 mg PO QDAY [facility] Last Admin: 01/17/22 08:52 Dose: 0.4 mg Thiamine HCl (Thiamine 100 Mg Tablet) 100 mg PO QDAY [facility] Last Admin: 01/17/22 08:53 Dose: 100 mg Vitamin D (Vitamin D3 125 Mcg Tablet) 125 mcg PO DAILY [facility] Last Admin: 01/17/22 08:52 Dose: 125 mcg A/P Assessment and plan (1) History of chronic lymphocytic leukemia: Status: Acute (2) Atrial fibrillation with RVR: Status: Acute (3) Alcohol withdrawal delirium: Status: Acute (4) Stage 1 acute kidney injury: Status: Acute (5) Meningioma: Status: Acute Narrative A/P Narrative: Assessment and Plans: 1. Alcohol withdrawal with delirium tremens: Inpatient PCU with telemetry CIWA protocol with Ativan IV/Librium Ativan IV PRN seizure activities Thiamine folic acid multivitamins rental manager consult Increased HCTZ from 25 to 50mg PO daily for better blood pressure control Clonidine PO/Hydralazine IV PRN blood pressure control 2. h/o chronic lymphocytic leukemia: Outpatient oncology follow up 3. h/o meningoma: Outpatient oncology follow up 4. h/o permanent atrial fibrillation with RVR: Metoprolol Succinate 50mg PO BID Lopressor IV PRN HR>=120bpm Defer the decision to start anticoagulation to PCP 5. Stage 1 acute kidney injury: Avoid nephrotoxic agents Saline lokced CMP in the morning to trend kidney functions 6. Hypokalemia: Potassium chloride oral replacement CMP in the morning to trend serum potassium level Also check serum Mg level and replace if needed 7. Anemia, hypochromic microcytic: cbc w/ auto diff in the morning to trend H/H GI ppx: not currently indicated DVT ppx: Lovenox Code status: DNR Prognosis: guarded Disposition: inpatient PCU Time Spent With Patient Time: Total time spent is greater than 50% in coordination of care (as documented) at patient's floor/unit and/or counseling patient: Total time spent with greater than 50% in coordination of care (as documented) at patient's floor/unit and/or counseling patient:: 35 - 50 minutes
[2022-01-17] MEDS ORDERED: chlordiazePOXIDE 25 MG CAPSULE PO SCH (09:15)
[2022-01-17] MEDS ORDERED: POTASSIUM CHLORIDE 20 MEQ TABLET PO ONE (10:01)
[2022-01-17] MEDS: ACETAMINOPHEN 325 MG TABLET PO PRN (13:44)
[2022-01-17] MEDS: POTASSIUM CHLORIDE 20 MEQ TABLET PO SCH (16:37)
[2022-01-18] MEDS: 0.9 % SODIUM CHLORIDE 10 ML SYRINGE IV SCH ×4 (05:21→21:10)
[2022-01-18 07:14] LABS: Basophils # (Auto) 0.04 K/mcL (0.00-0.30); Basophils % (Auto) 0.1 % (0.0-2.0); Eosinophils % (Auto) 0.6 % (0.0-7.0); Hematocrit 39.6 % (40.1-51.0); Hemoglobin 13.5 g/dL (13.7-17.5); Lymphocytes # (Auto) 30.82 K/mcL (1.50-4.80); Lymphocytes % (Auto) 86.8 % (15.5-49.0); Mean Cell Volume 99.5 fL (80.0-100.0); Mean Corpuscular HGB Conc 34.1 g/dL (31.0-36.0); Mean Platelet Volume 10.1 fL (8.8-12.5); Monocytes # (Auto) 1.16 K/mcL (0.10-0.90); Monocytes % (Auto) 3.3 % (1.0-12.0); Platelet Count 80 K/mcL (140-440); RBC 3.98 M/mcL (4.63-6.08); Red Cell Distribution Width 14.1 % (11.5-14.5); WBC 35.5 K/mcL (4.5-11.0)
[2022-01-18 08:17] LABS: ALT/SGPT 58 U/L (<40); AST/SGOT 85 U/L (<40); Albumin 3.8 gm/dL (3.2-5.2); Albumin/Globulin Ratio 2.1 (1.0-2.3); Alkaline Phosphatase 92 U/L (39-117); Bilirubin,Total 0.8 mg/dL (0.1-1.0); Blood Urea Nitrogen 12 mg/dL (6-20); Calcium 8.8 mg/dL (8.6-10.4); Carbon Dioxide 29 mmol/L (22-30); Chloride 94 mmol/L (96-108); Globulin 1.8 gm/dL (2.2-3.7); Glomerular Filtration Rate 98; Glucose 99 mg/dL (70-105); Phosphorous 4.5 mg/dL (2.5-4.5)
[2022-01-18] MEDS ORDERED: HYDROCHLOROTHIAZIDE 25 MG TABLET PO SCH (09:00)
[2022-01-18] MEDS ORDERED: chlordiazePOXIDE 25 MG CAPSULE PO PRN (09:06)
[2022-01-18] MEDS: ENOXAPARIN 40 MG/0.4 ML SYRINGE SQ SCH (09:22)
[2022-01-18] MEDS: VITAMIN D3 125 MCG TABLET PO SCH (09:23)
[2022-01-18] MEDS: DOCUSATE SODIUM 100 MG CAPSULE PO SCH ×2 (09:23→21:10)
[2022-01-18] MEDS: METOPROLOL SUCCINATE 50 MG TAB.XL.24H PO SCH ×2 (09:23→21:10)
[2022-01-18] MEDS: FOLIC ACID 1 MG TABLET PO SCH (09:23)
[2022-01-18] MEDS: THIAMINE 100 MG TABLET PO SCH (09:23)
[2022-01-18] MEDS: POTASSIUM CHLORIDE 20 MEQ TABLET PO SCH ×2 (09:23→17:08)
[2022-01-18] MEDS: ESCITALOPRAM 20 MG TABLET PO SCH (09:23)
[2022-01-18] MEDS: HYDROCHLOROTHIAZIDE 25 MG TABLET PO SCH (09:23)
[2022-01-18] MEDS: TAMSULOSIN 0.4 MG CAPSULE PO SCH (09:24)
[2022-01-18] MEDS: MULTIVIT,THER IRON,CA,FA & MIN 1 TABLET PO SCH (09:24)
--- NOTE | 2022-01-18 09:24 | Internal Med Progress Note ---
SUBJECTIVE Subjective Patient information: Note initiated : 01/18/22 at 9:18 am Service Date, if different from initiated Date: [] Patient: Abram Chinchilla a 61 y/o M admitted on 01/15/22 for alcohol withdrawl. Chief Complaint: [] Interval history: Mr. Chinchilla is a 61 year old M history of CLL, meningioma, alcoholism, presenting with alcohol withdrawal. He was hospitalized in our facility last January. He will presented to the ED last night with typical alcohol ithdrawal symptoms. He drinks 1.5 L of hard liquor per day, serum alcohol level 0.365. White count 18.4, baseline in the 20s. CIWA score this morning 17. Patient is currently lethargic and thus cannot participate much in the medical interview. 01/16: CIWA score 18 this morning. No reported seizures episodes overnight. Afebrile overnight. Patient is currently on room air. Cultures no growth to date. Patient denies insomnia. Patient is coming of anxiety and agitations. Patient is complaining of tendinitis but denies any visual or auditory hallucinations otherwise. No increased hand tremors. Continue CIWA protocol with Ativan for alcohol withdrawal symptoms controlled. Add hydrochlorothiazide for better blood pressure control. Supplemental oxygen therapy as needed. digital manager consulted for discharge planning. 01/17: CIWA score 19 this morning. He was trying to climb out of bed overnight. H/H 12.7 and 38.3 this morning, serum potassium level 3.3. c/o anxiety and agitation. Has increased bilateral hands tremors. Denies hallucination. Denies insomnia. Denies nausea or vomiting. Continue CIWA protocol with Ativan/Librium for alcohol withdrawal symptoms con trol. Increased HCTZ from 25 to 50mg PO daily. Metoprolol ER. Clonidine PO and Hydralazine IV PRN elevated blood pressure. Potassium chloride oral replacement. digital manager consulted for discharge planning. 01/18: CIWA score 8-1-3 overnight. There was no reported seizure episode overnight. Otherwise there was no other major overnight events. WBC, H/H stable. Patient is complaining of agitation, denies anxiety. Denies insomnia. Denies GI upset. Denies hallucination. Mild hand tremors. Continue CIWA protocol with Ativan for alcohol withdrawal symptoms control. Metoprolol ER/HCTZ/Clonidine PRN/Hydralazine IV PRN blood pressure control. digital manager/physical therapist for discharge planning. Constitutional Vitals: Vital Signs Temp Pulse Resp BP Pulse Ox O2 Del Method O2 Flow Rate 36.5 C 99 H 21 128/102 98 2 01/18/22 08:10 01/17/22 15:38 01/18/22 08:10 01/18/22 08:10 01/18/22 08:27 01/18/22 08:27 01/16/22 04:23 Period Temp Pulse Resp BP Sys/Johnson Pulse Ox O2 Del Method O2 Flow Rate Last 24 Hr 36.1 C-36.8 C 88-103 15-24 101-157/83-116 93-98 Room Air-Room Air Intake and Output 01/17/22 01/18/22 01/18/22 21:59 05:59 13:59 Intake Total 660 Output Total 1501 615 576 Balance -841 -615 -576 Weight 106.413 kg Intake & Output: Intake & Output 01/17/22 01/18/22 01/18/22 21:59 05:59 13:59 Intake Total 660 Output Total 1501 615 576 Balance -841 -615 -576 Weight 106.413 kg Intake: Oral 660 Output: Void Amount 1500 615 575 # of times incontinent of urine 1 1 Other: Meal Dinner Breakfast Percent of Meal Consumed 100% 100% Feeding Ability Independent Independent Urine Appearance Clear Clear Clear Urine Color Pale Bright Yellow Dark Yellow Urine Odor Strong Head Head exam: Present atraumatic and normal inspection Eye Eye exam: Present normal appearance ENT ENT exam: Present mucous membranes moist, normal exam and normal external ear exam Neck Neck exam: Present normal inspection Respiratory Respiratory exam: Present normal respiratory exam Cardiovascular Cardiovascular exam: Present irregular rhythm GI/Abdominal GI/Abdominal exam: Present normal bowel sounds Back Exam Back exam: Present normal inspection Neurological Exam Neurological exam: Present alert and oriented X3 Additional comments: Increased hand tremors Skin Skin exam: Present intact and warm OBJ DATA Labs CBC & Chem 7: 01/18/22 04:58 01/18/22 04:58 Labs: Abnormal Lab Results 01/18/22 01/18/22 01/17/22 04:58 04:58 05:06 WBC 35.5 H* RBC 3.98 L Hgb 13.5 L Hct 39.6 L MCV Plt Count 80 L Neut % (Auto) 9.0 L Lymph % (Auto) 86.8 H Lymph # (Auto) 30.82 H [place] # (Auto) 1.16 H Immature Gran # 0.06 H Chloride 94 L Anion Gap Calcium 8.2 L Total Bilirubin AST 85 H 73 H ALT 58 H 47 H Total Protein 5.6 L 5.1 L Globulin 1.8 L 1.7 L 01/17/22 01/16/22 01/16/22 05:06 05:02 05:02 WBC 33.0 H* 34.9 H* RBC 3.83 L 4.13 L Hgb 12.7 L Hct 38.3 L MCV 101.5 H Plt Count 69 L 72 L Neut % (Auto) 10.0 L 12.3 L Lymph % (Auto) 86.3 H 84.6 H Lymph # (Auto) 28.46 H 29.53 H [place] # (Auto) Immature Gran # 0.07 H 0.06 H Chloride Anion Gap 7.0 L Calcium 8.1 L Total Bilirubin 1.3 H AST 103 H ALT 60 H Total Protein 5.4 L Globulin 1.9 L Meds: Medications Acetaminophen (Acetaminophen 325 Mg Tablet) 650 mg PO Q6HP PRN; Protocol PRN Reason: Per Pain Protocol/Fever > 101 Last Admin: 01/17/22 13:44 Dose: 650 mg Clonidine HCl (Clonidine Hcl 0.1 Mg Tablet) 0.1 mg PO Q4HP PRN PRN Reason: ALC Last Admin: 01/17/22 20:54 Dose: 0.1 mg Docusate Sodium (Docusate Sodium 100 Mg Capsule) 100 mg PO BID [facility] Last Admin: 01/17/22 20:48 Dose: Not Given Enoxaparin Sodium (Enoxaparin 40 Mg/0.4 Ml Syringe) 40 mg SQ DAILY [facility] Last Admin: 01/17/22 08:52 Dose: 40 mg Escitalopram Oxalate (Escitalopram 20 Mg Tablet) 20 mg PO QDAY [facility] Last Admin: 01/17/22 08:52 Dose: 20 mg Folic Acid (Folic Acid 1 Mg Tablet) 1 mg PO DAILY [facility] Last Admin: 01/17/22 08:53 Dose: 1 mg Haloperidol Lactate (Haloperidol Lactate 5 Mg/Ml Vial) 0.5 mg IV Q2HP PRN PRN Reason: Alcohol Withdrawal/Assess CIWA Hydralazine HCl (Hydralazine 20 Mg/Ml Vial) 10 mg IV Q4-6HP PRN PRN Reason: Hypertension Hydrochlorothiazide (Hydrochlorothiazide 25 Mg Tablet) 50 mg PO DAILY [facility] Last Admin: 01/17/22 10:05 Dose: 50 mg Iron Carb/Multivit/[employer]/Folic Acid (Multivit,Ther Iron,Ca,Fa & Min 1 Tablet) 1 tab PO DAILY [facility] Last Admin: 01/17/22 08:52 Dose: 1 tab Lactulose (Lactulose 20 Gm/30 Ml Oral.Graciela) 10 gm PO DAILYP PRN PRN Reason: Constipation Lorazepam (Lorazepam 2 Mg/Ml Vial) 0 mg IV UD PRN; Protocol PRN Reason: Alcohol Withdrawal/Assess CIWA Last Admin: 01/17/22 10:23 Dose: 3 mg Lorazepam (Lorazepam 2 Mg/Ml Vial) 1 mg IV Q1HP PRN PRN Reason: Seizure Activity Metoprolol Succinate (Metoprolol Succinate 50 Mg Tab.Xl.24h) 50 mg PO BID [facility] Last Admin: 01/17/22 20:53 Dose: 50 mg Morphine Sulfate (Morphine 2 Mg/Ml Vial) 2 mg IV Q1HP PRN; Protocol PRN Reason: Per Pain Protocol Last Admin: 01/17/22 22:27 Dose: 2 mg Naloxone HCl (Naloxone Hcl 0.4 Mg/Ml Vial) 0.1 mg IV Q2MIN PRN PRN Reason: Opiate Reversal Ondansetron HCl (Ondansetron 4 Mg/2 Ml Vial) 4 mg IV Q4HP PRN; Protocol PRN Reason: Nausea And Vomiting Potassium Chloride (Potassium Chloride 20 Meq Tablet) 20 meq PO BIDCC [facility] Last Admin: 01/17/22 16:37 Dose: 20 meq Senna (Sennosides 1 Tablet) 2 tab PO HSP PRN PRN Reason: Constipation Sodium Chloride (0.9 % Sodium Chloride 10 Ml Syringe) 10 ml IV Q8 [facility] Last Admin: 01/18/22 05:21 Dose: 10 ml Tamsulosin HCl (Tamsulosin 0.4 Mg Capsule) 0.4 mg PO QDAY [facility] Last Admin: 01/17/22 08:52 Dose: 0.4 mg Thiamine HCl (Thiamine 100 Mg Tablet) 100 mg PO QDAY [facility] Last Admin: 01/17/22 08:53 Dose: 100 mg Vitamin D (Vitamin D3 125 Mcg Tablet) 125 mcg PO DAILY [facility] Last Admin: 01/17/22 08:52 Dose: 125 mcg A/P Assessment and plan (1) History of chronic lymphocytic leukemia: Status: Acute (2) Atrial fibrillation with RVR: Status: Acute (3) Alcohol withdrawal delirium: Status: Acute (4) Stage 1 acute kidney injury: Status: Acute (5) Meningioma: Status: Acute Narrative A/P Narrative: Assessment and Plans: 1. Alcohol withdrawal with delirium tremens: Inpatient PCU with telemetry CIWA protocol with Ativan PO Ativan IV PRN seizure activities Thiamine folic acid multivitamins digital manager consult HCTZ 50mg PO daily for better blood pressure control Clonidine PO/Hydralazine IV PRN blood pressure control 2. h/o chronic lymphocytic leukemia: Outpatient oncology follow up 3. h/o meningoma: Outpatient oncology follow up 4. h/o permanent atrial fibrillation with RVR: Metoprolol Succinate 50mg PO BID Lopressor IV PRN HR>=120bpm Defer the decision to start anticoagulation to PCP 5. Stage 1 acute kidney injury: Avoid nephrotoxic agents Saline lokced CMP in the morning to trend kidney functions 6. Hypokalemia: Potassium chloride oral replacement CMP in the morning to trend serum potassium level Also check serum Mg level and replace if needed 7. Anemia, hypochromic microcytic: cbc w/ auto diff in the morning to trend H/H GI ppx: not currently indicated DVT ppx: Lovenox Code status: DNR Prognosis: guarded Disposition: inpatient PCU Time Spent With Patient Time: Total time spent is greater than 50% in coordination of care (as documented) at patient's floor/unit and/or counseling patient: Total time spent with greater than 50% in coordination of care (as documented) at patient's floor/unit and/or counseling patient:: 25 - 35 minutes
[2022-01-18] MEDS: morphine 2 MG/ML VIAL IV PRN ×3 (09:45→21:10)
[2022-01-18] MEDS: cloNIDine HCL 0.1 MG TABLET PO PRN (13:31)
[2022-01-18] MEDS: hydrALAZINE 20 MG/ML VIAL IV PRN ×2 (13:31→18:26)
[2022-01-18] MEDS: ACETAMINOPHEN 325 MG TABLET PO PRN (18:51)
[2022-01-18] MEDS: LORazepam 1 MG TABLET PO PRN (22:15)
[2022-01-19] MEDS: 0.9 % SODIUM CHLORIDE 10 ML SYRINGE IV SCH ×3 (05:56→19:59)
[2022-01-19 07:30] LABS: Basophils # (Auto) 0.12 K/mcL (0.00-0.30); Basophils % (Auto) 0.4 % (0.0-2.0); Eosinophils % (Auto) 0.6 % (0.0-7.0); Hematocrit 42.9 % (40.1-51.0); Hemoglobin 14.3 g/dL (13.7-17.5); Lymphocytes # (Auto) 27.63 K/mcL (1.50-4.80); Lymphocytes % (Auto) 83.3 % (15.5-49.0); Mean Cell Volume 100.5 fL (80.0-100.0); Mean Corpuscular HGB Conc 33.3 g/dL (31.0-36.0); Mean Platelet Volume 10.1 fL (8.8-12.5); Monocytes % (Auto) 4.8 % (1.0-12.0); Neutrophils % (Auto) 10.7 % (38.0-78.0); Platelet Count 97 K/mcL (140-440); RBC 4.27 M/mcL (4.63-6.08); Red Cell Distribution Width 14.4 % (11.5-14.5); WBC 33.2 K/mcL (4.5-11.0)
[2022-01-19 07:35] LABS: Phosphorous 3.9 mg/dL (2.5-4.5)
[2022-01-19 07:46] LABS: ALT/SGPT 83 U/L (<40); AST/SGOT 107 U/L (<40); Albumin/Globulin Ratio 1.9 (1.0-2.3); Alkaline Phosphatase 93 U/L (39-117); Bilirubin,Total 0.9 mg/dL (0.1-1.0); Blood Urea Nitrogen 14 mg/dL (6-20); Calcium 9.3 mg/dL (8.6-10.4); Carbon Dioxide 26 mmol/L (22-30); Chloride 95 mmol/L (96-108); Globulin 2.1 gm/dL (2.2-3.7); Glomerular Filtration Rate 93; Glucose 90 mg/dL (70-105)
[2022-01-19] MEDS ORDERED: chlordiazePOXIDE 25 MG CAPSULE PO PRN (09:06)
--- NOTE | 2022-01-19 09:28 | Internal Med Progress Note ---
SUBJECTIVE Subjective Patient information: Note initiated : 01/19/22 at 9:24 am Service Date, if different from initiated Date: [] Patient: Abram Chinchilla a 61 y/o M admitted on 01/15/22 for alcohol withdrawl. Chief Complaint: [] Interval history: Mr. Chinchilla is a 61 year old M history of CLL, meningioma, alcoholism, presenting with alcohol withdrawal. He was hospitalized in our facility last January. He will presented to the ED last night with typical alcohol ithdrawal symptoms. He drinks 1.5 L of hard liquor per day, serum alcohol level 0.365. White count 18.4, baseline in the 20s. CIWA score this morning 17. Patient is currently lethargic and thus cannot participate much in the medical interview. 01/16: CIWA score 18 this morning. No reported seizures episodes overnight. Afebrile overnight. Patient is currently on room air. Cultures no growth to date. Patient denies insomnia. Patient is coming of anxiety and agitations. Patient is complaining of tendinitis but denies any visual or auditory hallucinations otherwise. No increased hand tremors. Continue CIWA protocol with Ativan for alcohol withdrawal symptoms controlled. Add hydrochlorothiazide for better blood pressure control. Supplemental oxygen therapy as needed. manager office services consulted for discharge planning. 01/17: CIWA score 19 this morning. He was trying to climb out of bed overnight. H/H 12.7 and 38.3 this morning, serum potassium level 3.3. c/o anxiety and agitation. Has increased bilateral hands tremors. Denies hallucination. Denies insomnia. Denies nausea or vomiting. Continue CIWA protocol with Ativan/Librium for alcohol withdrawal symptoms con trol. Increased HCTZ from 25 to 50mg PO daily. Metoprolol ER. Clonidine PO and Hydralazine IV PRN elevated blood pressure. Potassium chloride oral replacement. manager office services consulted for discharge planning. 01/18: CIWA score 8-1-3 overnight. There was no reported seizure episode overnight. Otherwise there was no other major overnight events. WBC, H/H stable. Patient is complaining of agitation, denies anxiety. Denies insomnia. Denies GI upset. Denies hallucination. Mild hand tremors. Continue CIWA protocol with Ativan for alcohol withdrawal symptoms control. Metoprolol ER/HCTZ/Clonidine PRN/Hydralazine IV PRN blood pressure control. manager office services/physical therapist for discharge planning. 01/19: CIWA score 2 this morning. There was no reported seizure episode overnight. Otherwise there was no other major overnight events. WBC, H/H stable. Patient is complaining of anxiety, denies agitation. Denies insomnia. Denies GI upset. Denies hallucination. Denies hand tremors. Transfer from PCU to [facility] surg telemetry. Continue CIWA protocol with Ativan for alcohol withdrawal symptoms control. Metoprolol ER/HCTZ/Clonidine PRN/Hydralazine IV PRN blood pressure control. manager office services/physical therapist for discharge planning. Constitutional Vitals: Vital Signs Temp Pulse Resp BP Pulse Ox O2 Del Method O2 Flow Rate 36.8 C 94 H 20 113/90 96 2 01/19/22 03:34 01/19/22 06:49 01/19/22 06:49 01/19/22 06:49 01/19/22 06:49 01/19/22 06:01 01/16/22 04:23 Period Temp Pulse Resp BP Sys/Johnson Pulse Ox O2 Del Method O2 Flow Rate Last 24 Hr 36.1 C-36.8 C 81-95 12-20 113-153/84-118 93-99 Room Air-Room Air Intake and Output 01/18/22 01/19/22 01/19/22 21:59 05:59 13:59 Intake Total 720 120 Output Total 2095 1025 300 Balance -1375 -905 -300 Weight 46.402 kg Intake & Output: Intake & Output 01/18/22 01/19/22 01/19/22 21:59 05:59 13:59 Intake Total 720 120 Output Total 5 1025 300 Balance -1375 -905 -300 Weight 46.402 kg Intake: Oral 720 120 Output: Void Amount 2095 1025 300 # of times incontinent of urine 0 Other: Meal Applejuice Percent of Meal Consumed 100% Feeding Ability Independent Urine Appearance Clear Clear Clear Urine Color Bright Yellow Bright Yellow Dark Yellow Urine Odor Normal Normal Normal Stool Size Moderate Stool Color Brown Stool Consistency Normal for Patient Soft Formed # Voids 1 # Bowel Movements 1 Head Head exam: Present atraumatic and normal inspection Eye Eye exam: Present normal appearance ENT ENT exam: Present mucous membranes moist, normal exam and normal external ear exam Neck Neck exam: Present normal inspection Respiratory Respiratory exam: Present normal respiratory exam Cardiovascular Cardiovascular exam: Present irregular rhythm GI/Abdominal GI/Abdominal exam: Present normal bowel sounds Back Exam Back exam: Present normal inspection Neurological Exam Neurological exam: Present alert and oriented X3 Skin Skin exam: Present intact and warm OBJ DATA Labs CBC & Chem 7: 01/19/22 05:08 01/19/22 05:08 Labs: Abnormal Lab Results 01/19/22 01/19/22 01/18/22 05:08 05:08 04:58 WBC 33.2 H* RBC 4.27 L Hgb Hct MCV 100.5 H Plt Count 97 L Neut % (Auto) 10.7 L Lymph % (Auto) 83.3 H Lymph # (Auto) 27.63 H [place] # (Auto) 1.60 H Immature Gran # 0.06 H Chloride 95 L 94 L Calcium AST 107 H 85 H ALT 83 H 58 H Total Protein 5.6 L Globulin 2.1 L 1.8 L 01/18/22 01/17/22 01/17/22 04:58 05:06 05:06 WBC 35.5 H* 33.0 H* RBC 3.98 L 3.83 L Hgb 13.5 L 12.7 L Hct 39.6 L 38.3 L MCV Plt Count 80 L 69 L Neut % (Auto) 9.0 L 10.0 L Lymph % (Auto) 86.8 H 86.3 H Lymph # (Auto) 30.82 H 28.46 H [place] # (Auto) 1.16 H Immature Gran # 0.06 H 0.07 H Chloride Calcium 8.2 L AST 73 H ALT 47 H Total Protein 5.1 L Globulin 1.7 L Meds: Medications Acetaminophen (Acetaminophen 325 Mg Tablet) 650 mg PO Q6HP PRN; Protocol PRN Reason: Per Pain Protocol/Fever > 101 Last Admin: 01/18/22 18:51 Dose: 650 mg Clonidine HCl (Clonidine Hcl 0.1 Mg Tablet) 0.1 mg PO Q4HP PRN PRN Reason: ALC Last Admin: 01/18/22 13:31 Dose: 0.1 mg Docusate Sodium (Docusate Sodium 100 Mg Capsule) 100 mg PO BID [facility] Last Admin: 01/18/22 21:10 Dose: 100 mg Enoxaparin Sodium (Enoxaparin 40 Mg/0.4 Ml Syringe) 40 mg SQ DAILY [facility] Last Admin: 01/18/22 09:22 Dose: 40 mg Escitalopram Oxalate (Escitalopram 20 Mg Tablet) 20 mg PO QDAY [facility] Last Admin: 01/18/22 09:23 Dose: 20 mg Folic Acid (Folic Acid 1 Mg Tablet) 1 mg PO DAILY [facility] Last Admin: 01/18/22 09:23 Dose: 1 mg Haloperidol Lactate (Haloperidol Lactate 5 Mg/Ml Vial) 0.5 mg IV Q2HP PRN PRN Reason: Alcohol Withdrawal/Assess CIWA Hydralazine HCl (Hydralazine 20 Mg/Ml Vial) 10 mg IV Q4-6HP PRN PRN Reason: Hypertension Last Admin: 01/18/22 18:26 Dose: 10 mg Hydrochlorothiazide (Hydrochlorothiazide 25 Mg Tablet) 50 mg PO DAILY [facility] Last Admin: 01/18/22 09:23 Dose: 50 mg Iron Carb/Multivit/[place]/Folic Acid (Multivit,Ther Iron,Ca,Fa & Min 1 Tablet) 1 tab PO DAILY [facility] Last Admin: 01/18/22 09:24 Dose: 1 tab Lactulose (Lactulose 20 Gm/30 Ml Oral.Graciela) 10 gm PO DAILYP PRN PRN Reason: Constipation Lorazepam (Lorazepam 2 Mg/Ml Vial) 1 mg IV Q1HP PRN PRN Reason: Seizure Activity Lorazepam (Lorazepam 1 Mg Tablet) 2 mg PO Q2HP PRN PRN Reason: CIWA-A >6 or HR >100 Last Admin: 01/18/22 22:15 Dose: 2 mg Metoprolol Succinate (Metoprolol Succinate 50 Mg Tab.Xl.24h) 50 mg PO BID [facility] Last Admin: 01/18/22 21:10 Dose: 50 mg Morphine Sulfate (Morphine 2 Mg/Ml Vial) 2 mg IV Q1HP PRN; Protocol PRN Reason: Per Pain Protocol Last Admin: 01/18/22 21:10 Dose: 2 mg Naloxone HCl (Naloxone Hcl 0.4 Mg/Ml Vial) 0.1 mg IV Q2MIN PRN PRN Reason: Opiate Reversal Ondansetron HCl (Ondansetron 4 Mg/2 Ml Vial) 4 mg IV Q4HP PRN; Protocol PRN Reason: Nausea And Vomiting Potassium Chloride (Potassium Ch[facility]ide 20 Meq Tablet) [facility] Last Admin: 01/18/22 17:08 Dose: 20 meq Senna (Sennosides 1 Tablet) 2 tab PO HSP PRN PRN Reason: Constipation Sodium Chloride (0.9 % Sodium Chloride 10 Ml Syringe) 10 ml IV Q8 [facility] Last Admin: 01/19/22 05:56 Dose: 10 ml Tamsulosin HCl (Tamsulosin 0.4 Mg Capsule) 0.4 mg PO QDAY [facility] Last Admin: 01/18/22 09:24 Dose: 0.4 mg Thiamine HCl (Thiamine 100 Mg Tablet) 100 mg PO QDAY [facility] Last Admin: 01/18/22 09:23 Dose: 100 mg Vitamin D (Vitamin D3 125 Mcg Tablet) 125 mcg PO DAILY [facility] Last Admin: 01/18/22 09:23 Dose: 125 mcg A/P Assessment and plan (1) History of chronic lymphocytic leukemia: Status: Acute (2) Atrial fibrillation with RVR: Status: Acute (3) Alcohol withdrawal delirium: Status: Acute (4) Stage 1 acute kidney injury: Status: Acute (5) Meningioma: Status: Acute Narrative A/P Narrative: Assessment and Plans: 1. Alcohol withdrawal with delirium tremens: Inpatient med surg with telemetry CIWA protocol with Ativan PO Ativan IV PRN seizure activities Thiamine folic acid multivitamins manager office services consult HCTZ 50mg PO daily for better blood pressure control Clonidine PO/Hydralazine IV PRN blood pressure control 2. h/o chronic lymphocytic leukemia: Outpatient oncology follow up 3. h/o meningoma: Outpatient oncology follow up 4. h/o permanent atrial fibrillation with RVR: Metoprolol Succinate 50mg PO BID Lopressor IV PRN HR>=120bpm Defer the decision to start anticoagulation to PCP 5. Stage 1 acute kidney injury: Avoid nephrotoxic agents Saline locked CMP in the morning to trend kidney functions 6. Hypokalemia: Potassium chloride oral replacement CMP in the morning to trend serum potassium level Also check serum Mg level and replace if needed 7. Anemia, hypochromic microcytic: cbc w/ auto diff in the morning to trend H/H GI ppx: not currently indicated DVT ppx: Lovenox Code status: DNR Prognosis: Stable Disposition: inpatient med surg telemetry Time Spent With Patient Time: Total time spent is greater than 50% in coordination of care (as documented) at patient's floor/unit and/or counseling patient: Total time spent with greater than 50% in coordination of care (as documented) at patient's floor/unit and/or counseling patient:: 35 - 50 minutes
[2022-01-19] MEDS: POTASSIUM CHLORIDE 20 MEQ TABLET PO SCH ×2 (10:42→17:02)
[2022-01-19] MEDS: ESCITALOPRAM 20 MG TABLET PO SCH (10:42)
[2022-01-19] MEDS: MULTIVIT,THER IRON,CA,FA & MIN 1 TABLET PO SCH (10:42)
[2022-01-19] MEDS: VITAMIN D3 125 MCG TABLET PO SCH (10:42)
[2022-01-19] MEDS: HYDROCHLOROTHIAZIDE 25 MG TABLET PO SCH (10:42)
[2022-01-19] MEDS: ENOXAPARIN 40 MG/0.4 ML SYRINGE SQ SCH (10:42)
[2022-01-19] MEDS: DOCUSATE SODIUM 100 MG CAPSULE PO SCH ×2 (10:42→19:58)
[2022-01-19] MEDS: FOLIC ACID 1 MG TABLET PO SCH (10:42)
[2022-01-19] MEDS: THIAMINE 100 MG TABLET PO SCH (10:43)
[2022-01-19] MEDS: METOPROLOL SUCCINATE 50 MG TAB.XL.24H PO SCH ×2 (10:43→19:58)
[2022-01-19] MEDS: TAMSULOSIN 0.4 MG CAPSULE PO SCH (10:43)
[2022-01-19] MEDS: morphine 2 MG/ML VIAL IV PRN ×2 (10:59→21:05)
[2022-01-19] MEDS: LORazepam 1 MG TABLET PO PRN ×3 (10:59→19:58)
[2022-01-19] MEDS: cloNIDine HCL 0.1 MG TABLET PO PRN (19:58)
[2022-01-20] MEDS: LORazepam 1 MG TABLET PO PRN ×2 (02:50→07:52)
[2022-01-20] MEDS: 0.9 % SODIUM CHLORIDE 10 ML SYRINGE IV SCH (06:02)
[2022-01-20 07:16] LABS: Basophils # (Auto) 0.08 K/mcL (0.00-0.30); Basophils % (Auto) 0.2 % (0.0-2.0); Eosinophils # (Auto) 0.16 K/mcL (0.00-0.70); Eosinophils % (Auto) 0.4 % (0.0-7.0); Hematocrit 44.5 % (40.1-51.0); Hemoglobin 15.2 g/dL (13.7-17.5); Lymphocytes # (Auto) 31.08 K/mcL (1.50-4.80); Lymphocytes % (Auto) 84.5 % (15.5-49.0); Mean Cell Volume 100.5 fL (80.0-100.0); Mean Corpuscular HGB Conc 34.2 g/dL (31.0-36.0); Mean Platelet Volume 10.2 fL (8.8-12.5); Monocytes # (Auto) 1.74 K/mcL (0.10-0.90); Monocytes % (Auto) 4.7 % (1.0-12.0); Platelet Count 129 K/mcL (140-440); RBC 4.43 M/mcL (4.63-6.08); Red Cell Distribution Width 14.6 % (11.5-14.5); WBC 36.8 K/mcL (4.5-11.0)
[2022-01-20 07:38] LABS: ALT/SGPT 115 U/L (<40); AST/SGOT 125 U/L (<40); Albumin 4.4 gm/dL (3.2-5.2); Albumin/Globulin Ratio 2.1 (1.0-2.3); Alkaline Phosphatase 102 U/L (39-117); Bilirubin,Total 0.8 mg/dL (0.1-1.0); Blood Urea Nitrogen 12 mg/dL (6-20); Calcium 9.3 mg/dL (8.6-10.4); Carbon Dioxide 24 mmol/L (22-30); Chloride 94 mmol/L (96-108); Globulin 2.1 gm/dL (2.2-3.7); Glomerular Filtration Rate 98; Glucose 87 mg/dL (70-105)
[2022-01-20] MEDS: ENOXAPARIN 40 MG/0.4 ML SYRINGE SQ SCH (07:52)
[2022-01-20] MEDS: FOLIC ACID 1 MG TABLET PO SCH (07:52)
[2022-01-20] MEDS: HYDROCHLOROTHIAZIDE 25 MG TABLET PO SCH (07:52)
[2022-01-20] MEDS: ESCITALOPRAM 20 MG TABLET PO SCH (07:52)
[2022-01-20] MEDS: MULTIVIT,THER IRON,CA,FA & MIN 1 TABLET PO SCH (07:52)
[2022-01-20] MEDS: METOPROLOL SUCCINATE 50 MG TAB.XL.24H PO SCH (07:52)
[2022-01-20] MEDS: TAMSULOSIN 0.4 MG CAPSULE PO SCH (07:52)
[2022-01-20] MEDS: VITAMIN D3 125 MCG TABLET PO SCH (07:52)
[2022-01-20] MEDS: THIAMINE 100 MG TABLET PO SCH (07:52)
[2022-01-20] MEDS: POTASSIUM CHLORIDE 20 MEQ TABLET PO SCH (07:53)
[2022-01-20] MEDS: DOCUSATE SODIUM 100 MG CAPSULE PO SCH (07:53)
[2022-01-20] MEDS ORDERED: chlordiazePOXIDE 25 MG CAPSULE PO PRN (09:06)
--- NOTE | 2022-01-20 11:15 | Discharge Summary ---
Discharge Provider Provider IMPORTANT FOLLOW-UP INFORMATION FOR PCP: Patient information: Note initiated : 01/20/22 at 11:13 am Service Date, if different from initiated Date: [] Patient: Abram Chinchilla 61 y/o M admitted on 01/15/22 for alcohol withdrawl. Chief Complaint: [] Date of admission: 01/15/22 02:00 Discharge date: 01/20/22 Primary care physician: PCP No Attending physician on admission: Kal Concepcion Consults: 01/15/22 Consult to Physician [CONS] Stat Comment: Consulting Provider: Kal Concepcion Reason For Exam: Physician to Consult Attending physician on discharge: Kal Rivera [place] COURSE Hospital Course Hospital course: Mr. Chinchilla is a 61 year old M history of CLL, meningioma, alcoholism, presenting with alcohol withdrawal. He was hospitalized in our facility last January. He will presented to the ED last night with typical alcohol ithdrawal symptoms. He drinks 1.5 L of hard liquor per day, serum alcohol level 0.365. White count 18.4, baseline in the 20s. CIWA score this morning 17. Patient is currently lethargic and thus cannot participate much in the medical interview. 01/16: CIWA score 18 this morning. No reported seizures episodes overnight. Afebrile overnight. Patient is currently on room air. Cultures no growth to date. Patient denies insomnia. Patient is coming of anxiety and agitations. Patient is complaining of tendinitis but denies any visual or auditory hallucinations otherwise. No increased hand tremors. Continue CIWA protocol with Ativan for alcohol withdrawal symptoms controlled. Add hydrochlorothiazide for better blood pressure control. Supplemental oxygen therapy as needed. commodity manager consulted for discharge planning. 01/17: CIWA score 19 this morning. He was trying to climb out of bed overnight. H/H 12.7 and 38.3 this morning, serum potassium level 3.3. c/o anxiety and agitation. Has increased bilateral hands tremors. Denies hallucination. Denies insomnia. Denies nausea or vomiting. Continue CIWA protocol with Ativan/Librium for alcohol withdrawal symptoms control. Increased HCTZ from 25 to 50mg PO daily. Metoprolol ER. Clonidine PO and Hydralazine IV PRN elevated blood pressure. Potassium chloride oral replacement. commodity manager consulted for discharge planning. 01/18: CIWA score 8-1-3 overnight. There was no reported seizure episode overnight. Otherwise there was no other major overnight events. WBC, H/H stable. Patient is complaining of agitation, denies anxiety. Denies insomnia. Denies GI upset. Denies hallucination. Mild hand tremors. Continue CIWA protocol with Ativan for alcohol withdrawal symptoms control. Metoprolol ER/HCTZ/Clonidine PRN/Hydralazine IV PRN blood pressure control. commodity manager/physical therapist for discharge planning. 01/19: CIWA score 2 this morning. There was no reported seizure episode overnight. Otherwise there was no other major overnight events. WBC, H/H stable. Patient is complaining of anxiety, denies agitation. Denies insomnia. Denies GI upset. Denies hallucination. Denies hand tremors. Transfer from PCU to [facility] telemetry. Continue CIWA protocol with Ativan for alcohol withdrawal symptoms control. Metoprolol ER/HCTZ/Clonidine PRN/Hydralazine IV PRN blood pressure control. commodity manager/physical therapist for discharge planning. 01/20: Discharged home with home health physical therapy. Discharge diagnosis: delirium tremens Time Spent with Patient Time attestation: Total time spent providing and/or coordinating discharge services: Time spent: Greater than 30 minutes EXAM Constitutional Vitals: Temp Pulse Resp BP Pulse Ox O2 Del Method O2 Flow Rate 36.2 C 85 22 108/82 97 2 01/20/22 07:55 01/19/22 16:01 01/20/22 07:55 01/20/22 07:55 01/20/22 07:55 01/20/22 07:55 01/16/22 04:23 General appearance: cooperative, disheveled and no acute distress Head Head exam: Present atraumatic and normocephalic Eye Eye exam: Present EOMI and PERRL ENT ENT exam: Present mucous membranes moist, normal exam and normal external ear exam Neck Neck exam: Present normal inspection; Absent lymphadenopathy, tenderness or thyromegaly Respiratory Respiratory exam: Absent accessory muscle use, respiratory distress or wheezes Cardiovascular Cardiovascular exam: Present irregular rhythm; Absent JVD GI/Abdominal GI/Abdominal exam: Present normal bowel sounds and soft; Absent organomegaly or tenderness Rectal Rectal exam: Present deferred Extremities Exam Extremities exam: Present full ROM, normal capillary refill and normal inspection; Absent tenderness Neurological Exam Neurological exam: Present alert, CN II-XII intact and oriented X3; Absent motor sensory deficit Psychiatric Psychiatric exam: Present normal affect and normal mood; Absent anxious or de pressed Skin Skin exam: Present dry and intact Discharge Data Data Completed and Pending Labs on day of discharge: Labs from last 24 hours 01/20/22 01/20/22 05:24 05:24 WBC 36.8 H* RBC 4.43 L Hgb 15.2 Hct 44.5 MCV 100.5 H MCH 34.3 H MCHC 34.2 RDW 14.6 H Plt Count 129 L MPV 10.2 Immature Gran % (Auto) 0.2 Neut % (Auto) 10.0 L Lymph % (Auto) 84.5 H [place] % (Auto) 4.7 Eos % (Auto) 0.4 Baso % (Auto) 0.2 Lymph # (Auto) 31.08 H [place] # (Auto) 1.74 H Eos # (Auto) 0.16 Baso # (Auto) 0.08 Immature Gran # 0.09 H Absolute Neutrophils 3.62 Sodium 132 L Potassium 4.7 Chloride 94 L Carbon Dioxide 24 Anion Gap 14.0 BUN 12 Creatinine 0.8 GFR Calculation 98 Glucose 87 Calcium 9.3 Phosphorus 4.0 Magnesium 2.1 Total Bilirubin 0.8 AST 125 H ALT 115 H Alkaline Phosphatase 102 Total Protein 6.5 Albumin 4.4 Globulin 2.1 L Albumin/Globulin Ratio 2.1 Discharge Plan Patient/Caregiver Discharge Instructions Activity: increase activity as tolerated Diet: Regular Diet Instructions: A-fib (Atrial Fibrillation) (GEN), Abuse of Alcohol (GEN), Alcohol Withdrawal (GEN), Anxiety (GEN) Prescriptions: New folic acid 1 mg Tablet 1 mg PO DAILY Qty: 30 0RF hydrochlorothiazide 25 mg Tablet 50 mg PO DAILY Qty: 30 0RF Thera M Plus (ferrous fumarat) 9 mg iron-400 mcg Tablet 1 tab PO DAILY Qty: 30 0RF thiamine mononitrate (vit B1) 100 mg Tablet 100 mg PO QDAY Qty: 30 0RF Continued metoprolol succinate 50 mg tablet extended release 24 hr 50 mg PO BID tamsulosin 0.4 mg capsule 0.4 mg PO QDAY cholecalciferol (vitamin D3) 125 mcg (5,000 unit) capsule 125 mcg PO QDAY escitalopram oxalate 20 mg tablet 20 mg PO QDAY Follow Up Plan Follow up with: PCP, PCP [Other] Trav Bazzi [Physician] - Patient Disposition: Home Health Service Prognosis: Serious Rehab Potential: Good I certify that the patient requires SNF services: No Overall status at discharge: patient is back to baseline Discharge Orders: Discharge Order (Routine); Ordered 01/20/22 Ordered By: Kal Concepcion
[2022-01-20] MEDS ORDERED: traZODone HCL 50 MG TABLET PO PRN (21:00)
[2022-01-21] MEDS ORDERED: chlordiazePOXIDE 25 MG CAPSULE PO PRN (09:06)
== END 2022-01-20 12:29 | disposition home health service (06) | DRG 897 ==
LOC: ED 23:26 → ICU 01-15 02:00
PROVIDERS: ADMIT Internal Medicine; ATTEND Internal Medicine